=== PATIENT | female | born 1975 | race Caucasian/White ===

== ENCOUNTER → 2017-11-14 13:00 | Outpatient (RCR) | payer MEDICAID, SELFPAY ==
--- NOTE | 2012-10-16 13:09 | TODAY_ITS ---
To: PCP AND CCC Reason for today's visit: HEALTH EDUCATION Plan: 10/13/12 - PT INTERESTED IN MAKING HEALTH BEHAVIOR CHANGES. LOOKING TO LOSE WEIGHT. DISCUSSED PHYSICAL ACTIVITY - PT ENJOYS WALKING ON THE BIKE PATH. PROVIDED [facility] WELLNESS CALENDAR WITH OPPORTUNITIES. NOT INTERESTED IN GROUP ACTIVITIES AT THE MOMENT. DISCUSSED PORTION SIZE, GROCERY LISTS, PLATE SIZE, CHOOSEMYPLATE. ENCOURAGED PT TO KEEP AT FOOD LOG. BRAINSTORMED IDEAS. FOLLOW UP 10/20/12. Action Plan: WALK ON BIKE PATH, HALF OF IT, 5 DAYS. CONFIDENCE LEVELS IS 7/8. Chronic Condition: Referred to:
--- NOTE | 2012-10-23 11:30 | TODAY_ITS ---
To: PCP AND CCC Reason for today's visit: WORK ON SELF-MANAGEMENT GOALS Plan: 10/19/12 - PT REPORTED BEING SUCCESSFUL WITH ACTION PLAN AND COMPLETING MORE BY WALKING THE ENTIRE BIKE PATH 5 DAYS. PT HAS GOAL OF RUNNING AGAIN. PT VERY MOTIVATED TO MAKE AND SUSTAIN CHANGES. REPORTED DOING WELL. DRINKING WATER NOW AND SAID SHE WAS ALMOST AT HER GOAL. DECREASED TO ALMOST NONE FOR SUGAR-SWEETENED BEVERAGES. PT IS TRACKING FOOD INTAKE. PT INTERESTED IN PROTEIN - SUGGESTED LOOKING AT [employer] (WE PRINTED SOME MATERIAL). ALSO SUGGESTED MEETING WITH THE HOT SAW HELPER. FOLLOW UP 10/27/12 Action Plan: EAT TUNE FISH FOR LUNCH, FRIDAY AND FRIDAY. CONFIDENCE LEVEL IS 9/10. Chronic Condition: Referred to:
--- NOTE | 2012-10-28 13:50 | TODAY_ITS ---
To: PCP AND CCC Reason for today's visit: WORK ON SELF-MANAGEMENT GOALS Plan: 10/27/12 - PT REPORTED DOING VERY WELL WITH HER GOALS. USING A WEBSITE (LOSE IT) TO TRACK FOOD INTAKE AND PHYSICAL ACTIVITY. REPORTED 1 LB WEIGHT LOSS AND WAS VERY EXCITED. PT WAS SUCCESSFUL WITH ACTION PLAN TO EAT TUNA 2 TIMES. ALSO TRYING TO INCORPORATE EGGS AND YOGURT INTO DIET. USING A PEDOMETER. AVERAGING 12,000 TO 14,000 STEPS A DAY, WHEN SHE GOES FOR A WALK ON THE BIKE PATH. ENCOURAGED PT TO ATTEND A GROUP HEALTH EDUCATION MEETING. PT WAS INTERESTED AND WILL BE ABLE TO DO SO WHEN HER CHILDREN ARE BACK IN SCHOOL. PT WILL CALL TO SCHEDULE NEXT APPT. Action Plan: EAT FISH 2 TIMES, FRIDAY AND FRIDAY. CONFIDENCE LEVEL IS 8/9. Chronic Condition: Referred to:
== END ==
LOC: CCT 10-13 09:30
PROVIDERS: PCP Internal Medicine; Visit Provider Internal Medicine
DX: 799.89 (principal)

== ENCOUNTER 2017-12-17 15:19 | Outpatient (CLI) | payer BC, MEDICAID, SELFPAY ==
--- NOTE | 2017-12-17 14:49 | DI.RAD_ITS ---
SYMPTOMS/DIAGNOSIS: COUGH, WHEEZE, R05, R06.2 PA AND LATERAL CHEST: Comparison is 01/25/10. The heart size and pulmonary vasculature appear unchanged compared to the prior examination and within normal limits. The lungs are clear. No effusions, infiltrates or pneumothoraces are identified. Mild degenerative changes are seen in the spine. IMPRESSION: No significant change in appearance of the chest x-ray. No acute abnormality.
== END 2017-12-17 15:39 ==
PROVIDERS: PCP Nurse Practitioner; Visit Provider Nurse Practitioner
DX: R05 Cough (principal); R06.2 Wheezing
CPT/HCPCS: 71046

== ENCOUNTER 2018-01-01 16:18 | Outpatient (REF) | payer BC, MEDICAID, SELFPAY ==
--- NOTE | 2018-01-01 15:45 | PAPFT_PTH ---
PATIENT: Chiquis Winn LOC: N U#:[id number] AGE/SX: 42/F ROOM: RE01/01/[address]: JOE Olivares : 1975 BED: DIS: 01/01/2018 SPEC #: [id number] RECD: 01/01/18 18:17 STATUS: KINDRA GONZALEZ #: [id number] TRIPP: 01/01/18 15:[address]: Yuliya Martins DEPT: [facility] Cytology RECD BY: Gracie Fofana ENTERED: 01/01/18 18:17 SP TYPE: PAPFT DARRYN DR: Rosi Hitchcock APRN Tissues: 1 - CX/ENDOCX FOR PAP SMEARS Procedures: PAP THIN PREP/UVM Screening Comments: [id number]
== END 2018-01-01 16:38 ==
LOC: LBN 16:18
PROVIDERS: PCP Nurse Practitioner; Visit Provider Nurse Practitioner Family
DX: Z12.4 Encounter for screening for malignant neoplasm of cervix (principal)
CPT/HCPCS: 88142

== ENCOUNTER 2018-01-13 15:24 | Outpatient (CLI) | payer BC, MEDICAID, SELFPAY ==
[2018-01-13 16:59] LABS: TSH (W/Ref FT4) 1.66 uIU/mL (0.358-3.74)
== END 2018-01-13 15:44 ==
PROVIDERS: PCP Nurse Practitioner; Visit Provider Nurse Practitioner Family
DX: N93.9 Abnormal uterine and vaginal bleeding, unspecified (principal)
CPT/HCPCS: 36415; 84443

== ENCOUNTER 2018-01-21 16:18 | Outpatient (CLI) | payer BC, MEDICAID, SELFPAY ==
[2018-01-21 16:43] LABS: HCT 39.1 % (36.0-46.0); Mean Corp. HGB Concentration 33.2 g/dL (32.0-36.0); Mean Corpuscular Hemoglobin 30.6 pg (27.0-33.0); Mean Platelet Volume 10.7 fL (8.0-11.0); Platelet Count 264 x1000/uL (130-400); RBC 4.25 m/cumm (4.00-5.20); RBC Distribution Width 13.3 % (11.7-14.6); White Blood Cell Count 7.07 k/cumm (4.4-10.8)
== END 2018-01-21 16:38 ==
PROVIDERS: PCP Nurse Practitioner; Visit Provider Obstetrics & Gynecology
DX: N93.9 Abnormal uterine and vaginal bleeding, unspecified (principal)
CPT/HCPCS: 36415; 85027

== ENCOUNTER 2018-01-21 17:38 | Outpatient (REF) | payer BC, MEDICAID, SELFPAY ==
--- NOTE | 2018-01-21 16:10 | ENDOMET_PTH ---
PATIENT: Chiquis Winn LOC: LBN U#:[id number] AGE/SX: 42/F ROOM: RE01/21/[address]: Sweta Farmer MD : 1975 BED: DIS: 01/21/2018 SPEC #: [id number] RECD: 01/22/18 12:16 STATUS: KINDRA REObed #: [id number] TRIPP: 01/21/18 16:[address]: Sweta Farmer DEPT: Surgical Specimen RECD BY: Gracie Fofana ENTERED: 01/22/18 12:16 SP TYPE: Endomet OTHR DR: Rosi Hitchcock APRN Tissues: 1 - ENDOMETRIUM BX/BLAIR Procedures: GROSS AND MICRO LEVEL 4 Comments: [id number]
== END 2018-01-21 17:58 ==
LOC: LBN 17:38
PROVIDERS: PCP Nurse Practitioner; Visit Provider Obstetrics & Gynecology
DX: N85.00 Endometrial hyperplasia, unspecified (principal); N93.8 Other specified abnormal uterine and vaginal bleeding
CPT/HCPCS: 88305

== ENCOUNTER 2018-02-09 01:32 | Outpatient (CLI) | payer BC, MEDICAID, SELFPAY ==
--- NOTE | 2018-02-09 12:48 | DI.US_ITS ---
SYMPTOM/DIAGNOSIS: PELVIC PAIN, PERINEAL PAIN R10.2 PELVIC ULTRASOUND: Comparison is made with 16 Jul 2017. Transabdominal and transvaginal exams were performed. The bladder is well distended and is unremarkable. The uterus measures 85 x 4.3 x 5.9 cm. The endometrial stripe measures 7 mm in thickness. Follicles are seen on the left ovary. There are no suspicious cysts or suspicious masses. There is no evidence of hydronephrosis. IMPRESSION: Pelvic ultrasound is within normal limits.
== END 2018-02-09 01:52 ==
PROVIDERS: PCP Nurse Practitioner; Visit Provider Obstetrics & Gynecology
DX: R10.2 Pelvic and perineal pain (principal); N92.0 Excessive and frequent menstruation with regular cycle
CPT/HCPCS: 76830; 76856

== ENCOUNTER 2018-02-11 05:42 | Outpatient (CLI) | payer BC, MEDICAID, SELFPAY ==
--- NOTE | 2018-02-11 15:57 | DI.MAMMO_ITS ---
SYMPTOM/DIAGNOSIS: SCREENING MAMMOGRAMS: Mammograms were interpreted according to the usual protocol including computer analysis with CAD system, tomosynthesis and C view imaging. Comparison is made with exams from 2015 and 2016. The breasts are composed of scattered fibroglandular densities. There are small circumscribed nodules again noted in the left breast. No suspicious masses or suspicious calcifications are seen in either breast. IMPRESSION: Category 2B, negative mammogram with benign findings. Yearly screening mammography is recommended. SA ASSESSMENT OF FINDINGS: Negative with benign findings. Category 2. Patient will receive a letter notifying them of these results. BI-RADS category B. There are scattered areas of fibroglandular density.
== END 2018-02-11 06:02 ==
PROVIDERS: PCP Nurse Practitioner; Visit Provider Nurse Practitioner Family
DX: Z12.31 Encounter for screening mammogram for malignant neoplasm of breast (principal)
CPT/HCPCS: 77063; 77067

== ENCOUNTER 2018-05-28 19:06 | Outpatient (REF) | payer BC, MEDICAID, SELFPAY ==
[2018-05-29 13:46] LABS: Chlamydia Result Negative; GC Result Negative; Specimen Description CERVIX
== END 2018-05-28 19:26 ==
LOC: LBN 19:06
PROVIDERS: PCP Nurse Practitioner; Visit Provider Nurse Practitioner Family
DX: Z11.3 Encounter for screening for infections with a predominantly sexual mode of transmission (principal)
CPT/HCPCS: 87491; 87591

== ENCOUNTER 2018-10-08 15:57 | Outpatient (REF) | payer BC, MEDICAID, SELFPAY | END 2018-10-08 16:17 | LOC: LBN 15:57 | PROVIDERS: PCP Nurse Practitioner; Visit Provider Nurse Practitioner Women's Health | DX: R30.0 Dysuria (principal) | CPT/HCPCS: 87077; 87086; 87186 ==

== ENCOUNTER 2019-01-05 15:52 | Outpatient (REF) | payer BC, MEDICAID, SELFPAY ==
--- NOTE | 2019-01-05 15:15 | PAPFT_PTH ---
PATIENT: Chiquis Winn LOC: N U#:[id number] AGE/SX: 43/F ROOM: RE01/05/[address]: JOE Olivares : 1975 BED: DIS: 01/05/2019 SPEC #: [id number] RECD: 01/05/19 18:17 STATUS: KINDRA REObed #: [id number] TRIPP: 01/05/19 15:[address]: Yuliya Martins DEPT: [facility] Cytology RECD BY: Gracie Fofana ENTERED: 01/05/19 18:17 SP TYPE: PAPFT DARRYN DR: Rosi Hitchcock APRN Tissues: 1 - CX/ENDOCX FOR PAP SMEARS Procedures: PAP THIN PREP/UVM Screening HPV DNA PROBE Comments: [id number]
== END 2019-01-05 16:12 ==
LOC: LBN 15:52
PROVIDERS: PCP Nurse Practitioner; Visit Provider Nurse Practitioner Family
DX: Z12.4 Encounter for screening for malignant neoplasm of cervix (principal); Z11.51 Encounter for screening for human papillomavirus (HPV)
CPT/HCPCS: 88142; 87624

== ENCOUNTER 2019-01-06 17:15 | Emergency (ER) | payer BC, MEDICAID, SELFPAY ==
[2019-01-06 17:23] VITALS: BP 125/80; PULSE 80; RESP 16; TEMP 36.8; O2SAT 95
--- NOTE | 2019-01-06 18:30 | ED.GENADUL_ITS ---
Discharge Plan Disposition Patient Disposition: HOME Condition: Fair Discharge Details Chief Complaint: Dizzy/Sync Clinical Impression: Intermittent lightheadedness Primary Care Provider: Rosi Hitchcock ED Provider: Elizabeth Burdick Home Meds and New Rx's Prescriptions: Continued albuterol sulfate 90 mcg/actuation HFA aerosol inhaler 2 puff IH Q4H PRN (Reason: bronchospasm) Qty: 8.5 RF: 0 Multiple Vitamin, Womens Tablet PO RF: 0 cholecalciferol (vitamin D3) 2,000 unit capsule 2,000 unit PO DAILY RF: 0 ibuprofen 800 mg tablet 800 mg PO TID PRN (Reason: pain) Qty: 30 RF: 5 gabapentin 100 mg capsule 200 mg PO HS PRN (Reason: sleep) Qty: 180 RF: 3 aripiprazole [Abilify] 5 mg tablet 5 mg PO DAILY Qty: 90 RF: 3 sertraline [Zoloft] 25 mg tablet 25 mg PO DAILY Qty: 90 RF: 3 meloxicam 7.5 mg Tablet,Disintegrating 7.5 mg PO HS RF: 0 Discharge Instructions Instructions: Lightheadedness (ED) Additional Instructions: Encourage hydration. Please follow-up with primary care this week for reevaluation. Please discuss your thyroid as well as your current medications to discuss if this may be contributing to your symptoms. If you develop new or worsening symptoms please seek care urgently once again. Labs are reassuring here today. Referrals: Rosi Hitchcock, [facility] [Primary Care Provider] - Discharge Data Discharge Date/Time-TO BE ENTERED AT DEPARTURE: 01/06/19 21:45 Medical Decision Making Patient presents today with chief complaint of dizziness. She reports that this began approximately or days ago and is waxing with time. She reports she was seen yesterday by [facility] and has been much more symptomatic since that time is been greatly concerned about her vital signs nursing staff told her that she was hypotensive and bradycardic. She is concerned that this may be driving her symptoms. She denies any headaches. States that she is intermittently been seeing double but that this is only when she initially fixates on something and then quickly subsides in a few seconds. States she does eat a regular 2- hour intervals. Feels that she has been hydrating but is unclear she may be dehydrated she has been currently thirsty. Denies any chest pain, shortness of breath. No abdominal pain. No change with bladder or bowel habits. No recent fevers or chills. No recent head trauma. No recent travel. Patient status post tubal ligation. On exam, patient appears quite anxious. Exam is otherwise benign. No evidence of trauma. No nystagmus. Is in her ears. She appears slightly dry. Normal cardiac and respiratory exam. Neurologic exam is intact and normal. Vital signs within normal limits. I did review the notes from yesterday which is. Patient blood pressure at that time is 98/60. Is not unusual for the patient. Her systolic is often around 100 and has been as low as 94 historically. Heart rate and yesterday's exam was 72 which again is baseline for the patient. This did greatly reassure her. However, she remains concerned for more serious etiology. She is not actively hyperventilating. However, she is also not actively symptomatic. In questioning if this may be any anxiety component. I did consider pulmonary embolism with findings very unlikely and patient is PERC negative. I do not feel a further assessment for this is necessary. ECG was reviewed by Dr. Shaffer. Patient is in normal sinus rhythm with a rate of 79. No acute ischemic changes noted. Labs reviewed. Patient does not walk. No electrolyte abnormalities. Her TSH 5.25 free T4 is 9 5. Troponin is less than 0.05. Discussed these findings with the patient. Advised that they were reassuring for no emergent etiology ongoing at this point. She is not having any neurologic deficit, has no headache or visual change at this time, and the feel that imaging is warranted. I did discuss with her that if the symptoms were to persist she may need an MRI as an outpatient per primary care. I also advised that she should discuss this further with her primary care. In particular, patient seems particularly concerned about her thyroid. I also advised that this may be assisted with side effects of medications that she has been on this for multiple years, I will refer her back to primary care to discuss this further. Again, advancing any emergent etiology for the patient is safe for discharge at this time. She does feel reassured and feels safe to go home. She was given return precautions. All her questions and concerns were addressed and she is in agreement this plan. She will call tomorrow to schedule appoint with her primary care. HPI General Mode of arrival: ambulatory . Date/Time Provider Initiated Documentation: 01/06/19 17:25 . Limitations to Documentation: no limitations . Information obtained by: patient and RN notes reviewed . HPI Narrative: Patient is a 43-year-old female presents today with chief complaint of lightheadedness. She reports this began a few days ago but has been more constant since yesterday. She reports that symptoms are worse when laying in a supine position and are improved with being upright. Tends notices more when sitting still and with movement. No recent change in medications. No recent travel. No fevers or chills. No headache. Reports that last night she was seeing double when she initially tried to fixate on a item but states that this would rapidly improve. Patient denies any change in her appetite or dietary habits. States she has been gaining weight and is concerned about thyroid dysfunction. She reports this is followed closely by her primary care but has no known diagnosis of thyroid dysfunction. Patient does report that she has a history of anxiety but this is not typically her anxiety manifests and does not feel particularly stressed at this time. She is quite worried that she was noted to be hypotensive and bradycardic yesterday at her women's wellness evaluation. Related Data Home Medications Medication Instructions Recorded Confirmed albuterol sulfate 90 mcg/actuation 2 puff IH Q4H PRN #8.5 gm 12/23/17 01/06/19 aerosol inhaler sertraline 25 mg tablet 25 mg PO DAILY #90 tab-cap 09/03/18 01/06/19 aripiprazole 5 mg tablet 5 mg PO DAILY #90 tab 09/08/18 01/06/19 gabapentin 100 mg capsule 200 mg PO HS PRN #180 cap 09/08/18 01/06/19 cholecalciferol (vitamin D3) 2,000 2,000 unit PO DAILY 01/05/19 01/06/19 unit capsule ibuprofen 800 mg tablet 800 mg PO TID PRN #30 tab 01/05/19 01/05/19 kntbajhvgqvc-Rq-kcwa-minerals tab PO 01/05/19 meloxicam 7.5 mg PO HS 01/06/19 01/06/19 Previous Rx's Medication Instructions Recorded albuterol sulfate 90 mcg/actuation 2 puff IH Q4H PRN #8.5 gm 12/23/17 aerosol inhaler sertraline 25 mg tablet 25 mg PO DAILY #90 tab-cap 09/03/18 aripiprazole 5 mg tablet 5 mg PO DAILY #90 tab 09/08/18 gabapentin 100 mg capsule 200 mg PO HS PRN #180 cap 09/08/18 ibuprofen 800 mg tablet 800 mg PO TID PRN #30 tab 01/05/19 Allergies Allergy/AdvReac Type Severity Reaction Status Date / Time promethazine AdvReac Intermediate made her Verified 01/06/19 17:26 loopy, outof it Sulfa (Sulfonamide AdvReac Intermediate vomiting Verified 01/06/19 17:26 Antibiotics) General Stated Complaint: Dizzy/Sync ELMA: 3 Review of Systems Constitutional Constitutional: Reports as per HPI, Denies chills, Reports fatigue, Denies fever(s), Denies frequent falls, Denies headache(s), Denies snoring and Denies weakness Eyes Eyes: Reports as per HPI, Denies blurry vision, Denies change in vision, Reports diplopia (Has not experienced this since yesterday) and Reports photophobia ENT Ears, Nose, Mouth, and Throat: Denies vertigo, Reports dizziness (Described as lightheadedness), Denies headache(s) and Denies neck pain Cardiovascular Cardiovascular: Reports as per HPI, Denies chest pain, Denies leg edema, Reports lightheadedness, Denies radiating jaw, neck or arm pain, Denies dyspnea and Denies dyspnea on exertion Respiratory Respiratory: Reports as per HPI, Denies chest congestion, Denies cough, Denies hemoptysis, Denies pain on inspiration, Denies pain with cough, Denies dyspnea, Denies dyspnea on exertion, Denies snoring, Denies stridor and Denies wheezing Gastrointestinal Gastrointestinal: Reports as per HPI, Denies abdominal pain, Denies change in bowel habits, Denies nausea and Denies vomiting Musculoskeletal Musculoskeletal: Reports as per HPI, Denies back pain, Denies myalgias, Denies muscle cramps, Denies neck pain and Denies numbness Integumentary/Breasts Skin/Breast: Reports as per HPI and Denies rash Neurologic Neurologic: Reports as per HPI, Denies abnormal movements, Denies abnormal speech, Denies behavioral changes, Denies confusion, Denies vertigo, Reports dizziness (Described as lightheadedness), Denies frequent falls, Denies headache(s), Denies focal weakness, Denies numbness, Denies sensory deficit and Denies weakness Psychiatric Psychiatric: Denies behavioral changes and Denies confusion Endocrine Endocrine: Reports fatigue Allergic/Immunologic Allergic/Immunologic: Denies wheezing FOR[facility]LY [facility], [facility] Medical History Abnormal uterine bleeding (Resolved) EMBx with disordered proliferative endometrium. 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 Pets and animals: Yes Pets and animals: dog(s) Current gender identity: female What type of physical activity do you participate in: none Seatbelt use: always Do you feel safe at home: Yes Do you feel safe in your relationship?: Yes Female Reproductive History Menstrual control method: permanent sterilization History History 3 Para 2 Hx # Term Pregnancies Multiple births Hx # Pregnancies Ectopic pregnancies AB induced Hx Number of Living Children AB spontaneous Exam Const General: cooperative, healthy appearing, uncomfortable, no acute distress, well developed and well groomed Nutritional Appearance: average body habitus and well nourished Orientation: alert, awake and oriented x3 HENMT Head: normal to inspection, no palpable skull fracture, normocephalic and atraumatic Ears: hearing grossly normal bilaterally, external ears normal and TM's normal bilaterally General nose exam: external nose normal Mouth: oral mucosae normal and moist mucous membranes Throat: posterior oropharynx normal Eyes General: appearance normal, both eyes and all related structures Visual Yan: normal visual yan by confrontation Alignment and Position: alignment normal and position normal Periorbital: periorbital findings normal Eyelids: eyelids normal Sclera: sclerae normal Cornea: corneas normal Pupils: PERRL EOM: EOM intact bilaterally Neck Neck: normal visual inspection, full ROM, no lymphadenopathy and no meningeal signs Resp Effort & Inspection: normal respiratory effort, able to speak in complete sentences and no respiratory distress Auscultation: clear to auscultation bilaterally, no rales, no rhonchi and no wheezes Cardio Rate: regular rate Rhythm: regular rhythm Heart Sounds: S1 normal and S2 normal GI Inspection: normal to inspection and non-distended Palpation: soft, no hepatosplenomegaly, not firm, no guarding, not rigid and nontender Percussion: normal to percussion Auscultation: normal bowel sounds Back/Spine/Pelvis Cervical Spine: normal cervical lordosis and cervical ROM normal Skin General skin exam: no rashes or lesions noted Neuro General: alert, awake and oriented x3 Cranial Nerves: CN's II-XI intact bilaterally Cognition: normal cognition Speech: speech normal Gait: normal gait Motor: muscle tone normal throughout, strength 5/5 throughout, no pronator drift, no movement abnormalities noted and no fasciculations Sensory Exam: no sensory deficits noted Coordination: [id number]-[id number] test normal and hwvy-ng-ibxl test normal Extrem General: normal to inspection, normal capillary refill, no pedal edema and no calf tenderness Psych Appearance: grossly normal and well kempt Mental Status: mental status grossly normal Speech and Movement: speech and movement normal Course Vital Signs Vital signs: Vital Signs Temperature 36.8 C 01/06/19 17:23 Pulse 80 01/06/19 17:23 Respiratory Rate 16 01/06/19 17:23 Blood Pressure 125/80 01/06/19 17:23 Pulse Oximetry 95 01/06/19 17:23 Temperature 36.8 C 01/06/19 17:23 Temperature Source Temporal Artery Scan 01/06/19 17:23 Pulse 80 01/06/19 17:23 Respiratory Rate 16 01/06/19 17:23 Respiratory Effort Non-Labored 01/06/19 17:48 Respiratory Depth Normal 01/06/19 17:48 Respiratory Pattern Normal 01/06/19 17:48 Blood Pressure 125/80 01/06/19 17:23 Pulse Oximetry 95 01/06/19 17:23 Oxygen Delivery Method Room Air 01/06/19 17:23 Oxygen Flow Rate 0 01/06/19 17:23
[2019-01-06] MEDS: Normal Saline 1,000 ML 1000 ML IV (19:00)
[2019-01-06 19:50] LABS: Abs Immature Grans 0.01 k/cumm (0.0-0.09); Absolute Basophil Count 0.02 k/cumm (0.0-0.2); Absolute Eosinophil Count 0.12 k/cumm (0.0-0.7); Absolute Lymphocyte Count 1.76 k/cumm (1.2-3.4); Absolute Monocyte Count 0.45 k/cumm (0.11-0.7); Absolute Neutrophil Count 5.73 k/cumm (1.2-6.7); Basophils % 0.2; Eosinophils % 1.5; HCT 40.9 % (36.0-46.0); HGB 13.8 g/dL (12.0-15.5); Immature Grans % 0.1; Lymphocytes % 21.8; Mean Corp. HGB Concentration 33.7 g/dL (32.0-36.0); Mean Corpuscular Hemoglobin 30.5 pg (27.0-33.0); Mean Corpuscular Volume 90.5 fL (80-95); Mean Platelet Volume 10.7 fL (8.0-11.0); Monocytes % 5.6; Neutrophils % 70.8; Platelet Count 317 x1000/uL (130-400); RBC 4.52 m/cumm (4.00-5.20); RBC Distribution Width 12.2 % (11.7-14.6); White Blood Cell Count 8.09 k/cumm (4.4-10.8)
[2019-01-06 20:10] LABS: ALT 33 U/L (14-59); AST 18 U/L (15-37); Albumin 4.1 g/dL (3.4-5.0); Alkaline Phosphatase 97 U/L (46-116); Anion Gap 10.8 mmol/L (3-11); BUN 24 mg/dL (7-18); Bilirubin, Total 0.7 mg/dL (0.2-1.0); CO2 26.2 mmol/L (21.0-32.0); CREATININE 0.95 mg/dL (0.55-1.02); Calcium 9.4 mg/dL (8.5-10.1); Chloride 104 mmol/L (98-107); Glucose 92 mg/dL (70-100); Potassium 3.7 mmol/L (3.5-5.1); Sodium 141 mmol/L (136-145); Total Protein 7.9 g/dL (6.4-8.2)
[2019-01-06 20:18] LABS: TSH 5.25 uIU/mL (0.36-3.74)
[2019-01-06 20:21] LABS: Troponin I < 0.05 ng/mL (0.00-0.06)
[2019-01-06 20:45] VITALS: BP 105/75; PULSE 67; RESP 14; O2SAT 100
[2019-01-06 21:09] LABS: FREE T4 0.95 ng/dL (0.76-1.46)
== END 2019-01-06 21:45 | disposition home or self-care (01) ==
PROVIDERS: Emergency Provider Physician Assistant; PCP Nurse Practitioner
DX: R42 Dizziness and giddiness (principal)
CPT/HCPCS: 36416; 80053; 82962; 93005; 96360; 99284; 83735; 84439; 84443; 84484; 85025; 93010

== ENCOUNTER 2019-02-12 01:44 | Outpatient (CLI) | payer BC, MEDICAID, SELFPAY ==
--- NOTE | 2019-02-12 15:15 | DI.MAMMO_ITS ---
EXAM: MAMMO SCREENING CLINICAL HISTORY: Screening, Z12.39 TECHNIQUE: Mammograms were interpreted according to the usual protocol including computer analysis w [place] acquired by [employer] CAD system, tomosynthesis and C-view imaging. COMPARISON: PRIOR EXAMINATION OF JANUARY 2018 FINDINGS: The breasts are of moderate density. There is somewhat asymmetric distribution of fibroglandular tis sarkis. No dominant mass is seen. Multiple small areas of nodularity are seen bilaterally, [facility] also showed multiple small areas of nodularity. There has been interval incr ease in size of a nodule of the lateral aspect of the left breast in comparison with the previous exa mination, this now measures up to about 7 millimeters in diameter. Additionally, an area of nodulari ty is seen projected in the central portion of the breast measuring about 8 millimeters in diameter, most clearly seen on the tomosynthesis views in the left MLO projection. On the right side, there is new area of nodularity, which is projected in the medial central portion of the breast. Compression views of these areas are requested along with bilateral breast ultrasound. IMPRESSION: Interval change in size of bilateral well-circumscribed breast masses. Spot compression views of both breasts and bilateral breast ultrasound are recommended for further evaluation to exclude an enlargi ng solid mass. Category 0, breast density category B.
== END 2019-02-12 02:04 ==
PROVIDERS: PCP Nurse Practitioner; Visit Provider Nurse Practitioner Family
DX: Z12.31 Encounter for screening mammogram for malignant neoplasm of breast (principal); R92.8 Other abnormal and inconclusive findings on diagnostic imaging of breast
CPT/HCPCS: 77063; 77067

== ENCOUNTER 2019-02-16 00:57 | Outpatient (CLI) | payer BC, MEDICAID, SELFPAY ==
--- NOTE | 2019-02-16 09:27 | DI.US_ITS ---
EXAM: MG MAMMO SCREEN CALL BACK BI AND BILAT BREAST ULTRASOUND CLINICAL HISTORY: F/U MAMMO, SMALL AREAS OF NODULARITY EMERITA, INC IN SIZE OF NODULE LT, NEW RTNODULARITY TECHNIQUE: Craniocaudal and mediolateral oblique Full Field Digital Mammography views with Computer Aided Diagnosis followed by Breast Tomosynthesis and bilateral breast ultrasound. COMPARISON: MG MAMMO SCREEN CALL BACK BI from 02/16/2019 US BREAST LT LIMITED from 02/16/2019 US BREAST RT LIMITED from 02/16/2019 FINDINGS: Mammography/Tomosynthesis: Breast Density: Breast Density - Category B - Scattered areas of fibroglandular density Masses/Architectural Distortion: The previously identified nodules in both breasts appear stable. Microcalcifications: No suspicious pleomorphic-type are seen. Skin Thickening/Nipple Retraction: None. Breast Ultrasound: Right breast ultrasound: Echotexture: Normal appearance of the glandular tissue. Shadowing: No suspicious foci. Cyst: There 2 cysts adjacent to each other at the 2 o'clock position of the right breast 3 centimeter s from the nipple. This appears to correspond to the mammographic abnormality. Solid lesions: None seen. Ductal dilation: None. Left breast ultrasound: Echotexture: Normal appearance of the glandular tissue. Shadowing: No suspicious foci. Cyst: There are small simple cysts seen in the left breast. Solid lesions: None seen. Ductal dilation: None. IMPRESSION: 1. No evidence for malignancy at this time. 2. Six-month follow-up right mammogram is requested for re-evaluation. BI-RADS Cat 3 - 6 month - Probably Benign Finding: Recommend follow-up mammography in 6 months Breast Density - Category B - Scattered areas of fibroglandular density The findings were discussed with the patient on the date of the examination. A negative radiographic report should not delay biopsy if a dominant or clinically suspicious mass is present. Up to ten percent of cancers are not identified on mammography. A negative report may reinforce clinical impression. Adenosis and dense breasts may obscure an underlying neoplasm. False positive reports average 6 to 10%. Patient will receive a letter notifying them of these results.
== END 2019-02-16 01:17 ==
PROVIDERS: PCP Nurse Practitioner; Visit Provider Nurse Practitioner Family
DX: Z12.31 Encounter for screening mammogram for malignant neoplasm of breast (principal); R92.8 Other abnormal and inconclusive findings on diagnostic imaging of breast; N60.11 Diffuse cystic mastopathy of right breast; N60.12 Diffuse cystic mastopathy of left breast
CPT/HCPCS: 76642; 77063; 77067

== ENCOUNTER 2019-02-23 09:51 | Outpatient (CLI) | payer BC, MEDICAID, SELFPAY ==
[2019-02-23 11:14] LABS: Abs Immature Grans 0.01 k/cumm (0.0-0.09); Absolute Basophil Count 0.02 k/cumm (0.0-0.2); Absolute Eosinophil Count 0.15 k/cumm (0.0-0.7); Absolute Lymphocyte Count 1.23 k/cumm (1.2-3.4); Absolute Monocyte Count 0.32 k/cumm (0.11-0.7); Absolute Neutrophil Count 4.02 k/cumm (1.2-6.7); Basophils % 0.3; Eosinophils % 2.6; HCT 41.2 % (36.0-46.0); HGB 13.5 g/dL (12.0-15.5); Immature Grans % 0.2; Lymphocytes % 21.4; Mean Corp. HGB Concentration 32.8 g/dL (32.0-36.0); Mean Corpuscular Hemoglobin 29.9 pg (27.0-33.0); Mean Corpuscular Volume 91.2 fL (80-95); Mean Platelet Volume 10.5 fL (8.0-11.0); Monocytes % 5.6; Neutrophils % 69.9; Platelet Count 296 x1000/uL (130-400); RBC 4.52 m/cumm (4.00-5.20); White Blood Cell Count 5.75 k/cumm (4.4-10.8)
[2019-02-23 12:39] LABS: TSH (W/Ref FT4) 1.75 uIU/mL (0.36-3.74)
== END 2019-02-23 10:11 ==
PROVIDERS: PCP Nurse Practitioner; Visit Provider Obstetrics & Gynecology
DX: N94.6 Dysmenorrhea, unspecified (principal); N93.9 Abnormal uterine and vaginal bleeding, unspecified; Z01.818 Encounter for other preprocedural examination; Z01.812 Encounter for preprocedural laboratory examination
CPT/HCPCS: 36415; 86850; 86900; 86901; 84443; 85025

== ENCOUNTER 2019-02-24 07:23 | Observation (INO) | payer BC, MEDICAID, SELFPAY ==
[2019-02-24] VITALS (13 sets, daily range): BP systolic 91–122; BP diastolic 52–80; PULSE 57–91; RESP 12–18; TEMP 36.3–36.7; O2SAT 95–98
[2019-02-24] MEDS: Lactated Ringers 1,000 ML 125 ML IV ×3 (08:07→21:06)
[2019-02-24] MEDS: ceFAZolin 2 GM/50 ML BAG IVPB (09:58)
[2019-02-24] MEDS: Bupivacaine 0.25% Pres-Free 30 ML VIAL (11:00)
--- NOTE | 2019-02-24 11:45 | UTER_PTH ---
PATIENT: Chiquis Winn LOC: OBS U#:[id number] AGE/SX: 43/F ROOM: OBS.306 RE02/24/[address]: Jose Stone MD : 1975 BED: A DIS: 02/25/2019 SPEC #: [id number] RECD: 02/24/19 18:05 STATUS: KINDRA REQ #: [id number] TRIPP: 02/24/19 11:[address]: Jose Stone DEPT: Surgical Specimen RECD BY: Gracie Fofana ENTERED: 02/24/19 18:06 SP TYPE: UTER OTHR DR: Rosi Hitchcock APRN Tissues: 1 - UTERUS W OR W/O OVARIES(NOT TUMOR/PROLAPSE) Procedures: GROSS AND MICRO LEVEL 4 Comments: [id number]
[2019-02-24] MEDS: Normal Saline 20 ML VIAL (12:00)
[2019-02-24] MEDS: Vasopressin 20 UNITS/ML VIAL (12:00)
--- NOTE | 2019-02-24 14:01 | ROE_ITS ---
Date of service: 02/24/19 Time of Service: 14:01 Operative Note Operative Note DATE OF PROCEDURE: 02/24/19 PRE-OP DIAGNOSIS: 1. Dysmenorrhea 2. Abnormal uterine bleeding POST-OP DIAGNOSIS: same PROCEDURE: LAVH, cystoscopy SURGEON: Jose Stone ASSISTING SURGEON: Emelia Beach MOTION PICTURE SCENE BUILDER: Pauly Flood ANESTHESIA: GETA and spinal ESTIMATED BLOOD LOSS: 75 PATHOLOGY: other (Uterus with fallopian tubes) COMPLICATIONS: None Patient was transported to: PACU Patient's condition: stable Findings: 1. Normal-appearing uterus. 2. Ovaries were both normal in appearance. Procedure Description: The patient was taken to the operating room and after adequate general anesthesia was obtained the patient was placed in lithotomy position. The patient was prepped and draped in the usual sterile manner. A weighted speculum was placed the vagina with good visualization of the cervix. A [employer] uterine manipulator was placed. A Kate catheter was placed in the bladder draining clear urine. The patient was repositioned. The surgeon was regloved. Attention was then turned to patient's abdomen. The skin and subtenons tissues at the umbilicus were infiltrated with 0.25% Marcaine solution. A small infraumbilical skin incision was then made with a #15 blade scalpel. Sharp dissection was carried out the underlying layer fascia. The fascia was grasped and elevated with 2 Abel clamps and incised sharply with a scalpel. The peritoneum was entered with hemostats and S re tractors were placed. 2 sutures of 0 Vicryl were placed on either side of the fascial incision. The 10 mm balloon trocar was advanced without difficulty. A pneumoperitoneum to approximately 14 mmHg was established with carbon dioxide. Two 5 mm ports were placed in the right and left lower quadrants both under direct visualization. The patient did have a tubal ligation in the past. The right and left distal fallopian tube segments were excised with the LigaSure device and removed from the abdomen. Dissection was carried first across the right round ligament with the LigaSure device. Dissection was carried across the the utero-ovarian ligament as well. Dissection was carried down to the level of the uterine vessels. The bladder reflection was divided to the midline with LigaSure device. The ascending branches of the uterine vessels were coagulated and transected with the LigaSure. Attention was then turned to the opposite side where a similar procedure was carried out. The bladder reflection was dissected again to the midline and reflected inferiorly. The anterior cul-de-sac was developed with endoscopic Kitners. Attention was then turned to the vaginal portion of this procedure The patient was repositioned a weighted speculum was placed in the vagina with good visualization of the cervix. The cervix was grasped with a single-tooth tenaculum. The paracervical tissues were infiltrated with vasopressin solution. A circumferential incision was made with a #10 scalpel at the cervicovaginal junction. The anterior and posterior planes were developed with both blunt and sharp dissection. The cul-de-sac was entered sharply with Khanna scissors. The posterior peritoneum was tagged to the vaginal mucosa with a suture of 0 Vicryl. A long-billed weighted speculum was placed. Dissection was carried anteriorly to the anterior cul-de-sac and the bladder was reflected anteriorly with a right angle retractor. The uterosacral ligaments were crossclamped bilaterally with Zeppelin clamps. These were transected with Khanna scissors and suture ligated with a Jmeima stitch of 0 Vicryl. Suture tags were held. The uterine vessels were then crossclamped bilaterally with Zeppelin clamps, transected with Khanna scissors and suture ligated also with a Hamida stitch of 0 Vicryl. Two additional pedicles on either side completed the dissection and the uterus was removed from the abdomen. The suture tags holding the uterosacral ligaments were incorporated into the vaginal angles with use of a free needle. The median defect in the vaginal cuff was reapproximated with interrupted vertical mattress sutures of 0 Vicryl. 5 mL's of indigocarmine had been given to the patient intravenously. A 5 mm 30 degree cystoscope with normal saline distention media was advanced through the urethra with good visualization of the bladder. The bladder wall was noted to be intact. There was strong reflux of indigocarmine from both UOs. Postoperative cystoscopy was normal. The cystoscope was removed and Kate catheter were placed. The patient was repositioned. The surgeon was regloved. Attention was then turned to the patient's abdomen. The pneumoperitoneum was reestablished. Laparoscope was reinserted. The vaginal cuff was thoroughly inspected and there was a small bleeding vessel on the left side of the vaginal cuff. This is coagulated with LigaSure device. The vaginal cuff was thoroughly irrigated and was noted to be hemostatic. Surgi-David was applied to the area and again hemostasis was noted. The two 5 mm ports were removed under direct visualizatio n. The abdomen was desufflated and the 10 mm umbilical trocar was removed. The fascia at the umbilicus was closed with 2 previously placed sutures of 0 Vicryl. The skin at each incision was closed with interrupted sutures of 4 Monocryl. Dermabond was applied. The procedure was concluded at this point. Sponge, lap and needle counts were correct occlusion of the procedure. The patient was tra nsferred to PACU stable condition.
[2019-02-24] MEDS: Ketorolac 30 MG/ML VIAL IVP (18:19)
[2019-02-24] MEDS: Normal Saline Flush 10 ML SYR IV ×2 (18:20→21:06)
[2019-02-24] MEDS: Gabapentin 100 MG CAP 200 MG PO (21:04)
[2019-02-24] MEDS: Sertraline 25 MG TAB PO (21:04)
[2019-02-24] MEDS: ARIPiprazole 5 MG TAB PO (21:05)
[2019-02-24] MEDS: Esomeprazole 20 MG CAPCR PO (21:05)
[2019-02-25 00:30] VITALS: BP 95/49; PULSE 57; RESP 18; TEMP 36.9
[2019-02-25] MEDS: Ketorolac 30 MG/ML VIAL IVP ×2 (00:31→06:45)
[2019-02-25] MEDS: Normal Saline Flush 10 ML SYR IV (00:31)
[2019-02-25 04:02] VITALS: BP 89/43; PULSE 80; RESP 18; TEMP 36.8; O2SAT 95
[2019-02-25] MEDS: Levothyroxine 25 MCG TAB PO (05:53)
[2019-02-25 07:17] VITALS: BP 102/67; PULSE 66; RESP 18; TEMP 36.7
[2019-02-25 08:02] LABS: HCT 36.2 % (36.0-46.0); HGB 12.2 g/dL (12.0-15.5); Mean Corp. HGB Concentration 33.7 g/dL (32.0-36.0); Mean Corpuscular Hemoglobin 30.7 pg (27.0-33.0); Mean Corpuscular Volume 91.2 fL (80-95); Mean Platelet Volume 10.3 fL (8.0-11.0); Platelet Count 268 x1000/uL (130-400); RBC 3.97 m/cumm (4.00-5.20); RBC Distribution Width 12.1 % (11.7-14.6); White Blood Cell Count 8.47 k/cumm (4.4-10.8)
--- NOTE | 2019-02-25 11:18 | W.PM.PROGNOT ---
Date of Service Date of service: 02/25/19 Time of Service: 11:18 Assessment and Plan Assessment and plan (1) Abnormal uterine bleeding: Status: Acute (2) Status post laparoscopic hysterectomy: Status: Acute Assessment and plan: Doing well. Making satisfactory postoperative progress. Plan for discharge home if able to void this morning without difficulty. Subjective Subjective Interval history since last seen: Doing well. Pain well controlled. Ambulatory. Tolerating regular diet. No nausea or vomiting. Objective Objective Clinical Data: Abnormal lab results 02/25/19 Range/Units 07:50 RBC 3.97 L (4.00-5.20) m/cumm Vital Signs Temperature 98.1 F 02/25/19 07:17 Temperature Source Oral 02/25/19 07:17 Pulse 66 02/25/19 07:17 Pulse Rhythm Regular 02/25/19 07:18 Respiratory Rate 18 02/25/19 07:17 Respiratory Effort 02/25/19 07:18 Respiratory Depth Normal 02/25/19 07:18 Respiratory Pattern Normal 02/25/19 07:18 Blood Pressure 102/67 02/25/19 07:17 Pulse Oximetry 95 02/25/19 04:02 Respiratory End-tidal CO2 36 02/24/19 13:41 Oxygen Delivery Method Room Air 02/25/19 04:02 Oxygen Flow Rate 0 02/25/19 04:02 Pain Level 2 02/25/19 07:17 Comment 02/25/19 04:02 Intake & Output 02/24/19 02/24/19 02/25/19 11:59 23:59 11:59 Intake Total 50 / 1150 1100 / 1150 3656 / 3656 Output Total 1125 / 1125 1150 / 1150 Balance 50 / 25 -25 / 25 2506 / 2506 Weight 238 lb 8.642 oz 238 lb 8.642 oz Intake: IV 50 / 1150 1100 / 1150 3656 / 3656 Output: Urine 1050 / 1050 1150 / 1150 Estimated Blood Loss 75 / 75 Other: Urine Color Yellow Indigo Yellow Urine Appearance Clear Clear Clear Comment encoursged to drink more fluids Emesis Description None Laboratory Results WBC 8.47 k/cumm (4.4-10.8) 02/25/19 07:50 RBC 3.97 m/cumm (4.00-5.20) L 02/25/19 07:50 Hgb 12.2 g/dL (12.0-15.5) 02/25/19 07:50 Hct 36.2 % (36.0-46.0) 02/25/19 07:50 MCV 91.2 fL (80-95) 02/25/19 07:50 MCH 30.7 pg (27.0-33.0) 02/25/19 07:50 MCHC 33.7 g/dL (32.0-36.0) 02/25/19 07:50 RDW 12.1 % (11.7-14.6) 02/25/19 07:50 Plt Count 268 x1000/uL (130-400) 02/25/19 07:50 MPV 10.3 fL (8.0-11.0) 02/25/19 07:50
[2019-02-25 12:23] VITALS: BP 114/78; PULSE 63; RESP 20; TEMP 36.7; O2SAT 98
[2019-02-25] MEDS: Ibuprofen 600 MG TAB PO (13:05)
[2019-02-25] MEDS: Acetaminophen 500 MG TAB 1000 MG PO (13:16)
== END 2019-02-25 15:00 | disposition home or self-care (01) ==
LOC: OBS 14:05 → PDS 14:08
PROVIDERS: Admitting Provider Obstetrics & Gynecology; PCP Nurse Practitioner; Visit Provider Obstetrics & Gynecology
PROC: 0UT9FZZ Resection of Uterus, Via Natural or Artificial Opening With Percutaneous Endoscopic Assistance (ICD-10-PCS; CPT 58552; principal; 2019-02-24 09:00)
DX: N93.8 Other specified abnormal uterine and vaginal bleeding (principal); N94.6 Dysmenorrhea, unspecified; E03.9 Hypothyroidism, unspecified; F41.8 Other specified anxiety disorders
CPT/HCPCS: 58552; 36415; 85027; 88305; 96360; 96361; 99233; 88307; G0378; J0131; J0690; J1100; J1200; J1885; J2001; J2250; J2405; J3010

== ENCOUNTER 2019-03-22 13:53 | Outpatient (CLI) | payer BC, MEDICAID, SELFPAY ==
[2019-03-22 14:50] LABS: Abs Immature Grans 0.01 k/cumm (0.0-0.09); Absolute Basophil Count 0.03 k/cumm (0.0-0.2); Absolute Eosinophil Count 0.28 k/cumm (0.0-0.7); Absolute Lymphocyte Count 1.32 k/cumm (1.2-3.4); Absolute Monocyte Count 0.36 k/cumm (0.11-0.7); Absolute Neutrophil Count 5.78 k/cumm (1.2-6.7); Basophils % 0.4; Eosinophils % 3.6; HCT 36.9 % (36.0-46.0); HGB 12.4 g/dL (12.0-15.5); Immature Grans % 0.1 %; Mean Corp. HGB Concentration 33.6 g/dL (32.0-36.0); Mean Corpuscular Hemoglobin 30.1 pg (27.0-33.0); Mean Corpuscular Volume 89.6 fL (80-95); Mean Platelet Volume 10.6 fL (8.0-11.0); Monocytes % 4.6; Neutrophils % 74.3; Platelet Count 338 x1000/uL (130-400); RBC 4.12 m/cumm (4.00-5.20); RBC Distribution Width 12.1 % (11.7-14.6); White Blood Cell Count 7.78 k/cumm (4.4-10.8)
== END 2019-03-22 14:13 ==
PROVIDERS: PCP Nurse Practitioner; Visit Provider Obstetrics & Gynecology
DX: G89.18 Other acute postprocedural pain (principal)
CPT/HCPCS: 36415; 85025

== ENCOUNTER 2019-08-23 02:05 | Outpatient (CLI) | payer BC, MEDICAID, SELFPAY ==
--- NOTE | 2019-08-23 14:15 | DI.MAMMO_ITS ---
EXAM: MG MAMMO DIAGNOSTIC UNI CLINICAL HISTORY: 6 mo f/u R breast mammo, f/u to abnl exam, R92.8. TECHNIQUE: Craniocaudal and mediolateral oblique Full Field Digital Mammography views of the right b reast with Computer Aided Diagnosis followed by Tomosynthesis. COMPARISON: Priors available for comparison FINDINGS: Mammography/Tomosynthesis: Masses/Architectural Distortion: Stable area of nodularity in the medial aspect of the right breast. It is unchanged in size. No new or suspicious masses are present. Microcalcifictions: No suspicious pleomorphic-type are seen. Skin Thickening/Nipple Retraction: None. IMPRESSION: 1. No evidence of malignancy is noted. 2. A six-month follow-up right mammogram is requested for continued evaluation. 3. The findings were discussed with the patient on the date of the examination. BI-RADS Category 3 - 6 month - Probably Benign Finding: Recommend follow-up mammography in 6 months Breast Density - Category B - Scattered areas of fibroglandular density A negative radiographic report should not delay biopsy if a dominant or clinically suspicious mass is present. Up to ten percent of cancers are not identified on mammography. A negative report may reinforce clinical impression. Adenosis and dense breasts may obscure an underlying neoplasm. False positive reports average 6 to 10%. Patient will receive a letter notifying them of these results.
== END 2019-08-23 02:25 ==
PROVIDERS: PCP Nurse Practitioner; Visit Provider Nurse Practitioner Family
DX: Z12.31 Encounter for screening mammogram for malignant neoplasm of breast (principal); R92.8 Other abnormal and inconclusive findings on diagnostic imaging of breast; N60.81 Other benign mammary dysplasias of right breast
CPT/HCPCS: 77061; 77065; G0279

== ENCOUNTER 2019-09-15 14:20 | Outpatient (REF) | payer BC, MEDICAID, SELFPAY ==
[2019-09-15 19:22] LABS: HCT 41.3 % (36.0-46.0); HGB 13.9 g/dL (12.0-15.5); Mean Corp. HGB Concentration 33.7 g/dL (32.0-36.0); Mean Corpuscular Hemoglobin 30.4 pg (27.0-33.0); Mean Corpuscular Volume 90.4 fL (80-95); Mean Platelet Volume 11.9 fL (8.0-11.0); Platelet Count 310 x1000/uL (130-400); RBC 4.57 m/cumm (4.00-5.20); RBC Distribution Width 12.2 % (11.7-14.6); White Blood Cell Count 8.35 k/cumm (4.4-10.8)
[2019-09-15 20:25] LABS: ALT 27 U/L (14-59); AST 17 U/L (15-37); Albumin 4.2 g/dL (3.4-5.0); Alkaline Phosphatase 102 U/L (46-116); Anion Gap 12.1 mmol/L (3-11); BUN 10 mg/dL (7-18); Bilirubin, Total 0.5 mg/dL (0.2-1.0); CO2 22.9 mmol/L (21.0-32.0); CREATININE 0.91 mg/dL (0.55-1.02); Calcium 9.5 mg/dL (8.5-10.1); Chloride 104 mmol/L (98-107); Glucose 100 mg/dL (74-106); Potassium 3.9 mmol/L (3.5-5.1); Sodium 139 mmol/L (136-145); TSH (W/Ref FT4) 0.48 uIU/mL (0.36-3.74); Total Protein 7.5 g/dL (6.4-8.2)
== END 2019-09-15 14:40 ==
LOC: LBO 14:20
PROVIDERS: PCP Nurse Practitioner; Visit Provider Student in an Organized Health Care Education/Training Program
DX: E03.9 Hypothyroidism, unspecified (principal); I10 Essential (primary) hypertension; F41.1 Generalized anxiety disorder; F39 Unspecified mood [affective] disorder
CPT/HCPCS: 80053; 85027; 84443

== ENCOUNTER 2019-10-07 09:01 | Outpatient (REF) | payer BC, MEDICAID, SELFPAY ==
[2019-10-08 11:24] LABS: Campylobacter PCR Negative (Negative); Salmonella PCR Negative (Negative); Shiga Toxin PCR Negative (Negative); Shigella/Enteroinvasive Ecoli Negative (Negative)
== END 2019-10-07 09:21 ==
LOC: LBN 09:01
PROVIDERS: PCP Nurse Practitioner; Visit Provider Nurse Practitioner
DX: R10.31 Right lower quadrant pain (principal); R19.5 Other fecal abnormalities
CPT/HCPCS: 87505

== ENCOUNTER 2019-10-15 16:29 | Emergency (ER) | payer BC, MEDICAID, SELFPAY ==
[2019-10-15] VITALS (24 sets, daily range): BP systolic 111–126; BP diastolic 69–94; PULSE 78–99; RESP 16–18; TEMP 36.5–36.7; O2SAT 96–99
--- NOTE | 2019-10-15 18:00 | RT.EKG_ITS ---
APPROVED REPORT Exam: Resting ECG Patient Location: E HR:92 bpm ECG Measurements Heart Rate 92 AXIS OH 134 P 57 QRSd 94 QRS 77 QT 365 T 50 QTc 451 <Conclusion> Sinus rhythm...normal P axis, V-rate 60- 99
--- NOTE | 2019-10-15 18:07 | NUR.NOTE ---
Nursing Note: 1800 Discharge Rn out to waiting room to inform patient of multiple rescues and no room available at this time. Patient complaining of neck tightness, order obtained for an ECG. Patient brought back to the triage room for EKG.
[2019-10-15] MEDS: Ketorolac 30 MG/ML VIAL IVP (20:22)
[2019-10-15 20:23] LABS: Abs Immature Grans 0.02 10^3/uL (0.0-0.06); Absolute Basophil Count 0.03 10^3/uL (0.0-0.2); Absolute Eosinophil Count 0.12 10^3/uL (0.0-0.7); Absolute Lymphocyte Count 1.82 10^3/uL (1.2-3.4); Absolute Monocyte Count 0.47 10^3/uL (0.1-0.8); Absolute Neutrophil Count 6.57 10^3/uL (1.2-6.7); Basophils % 0.3; Eosinophils % 1.3; HCT 40.9 % (36.0-46.0); HGB 13.8 g/dL (11.2-15.7); Immature Grans % 0.2; Lymphocytes % 20.2; MCH 30.3 pg (27.0-33.0); MCHC 33.7 % (32.0-36.0); MCV 89.7 fL (80-95); MPV 10.9 fL (8.0-11.0); Monocytes % 5.2; Neutrophils % 72.8; Platelet Count 323 10^3/uL (130-400); RBC 4.56 10^6/uL (3.93-5.22); RDW 11.7 % (11.7-14.6); RDW-SD 37.9 fL; WBC 9.03 10^3/uL (4.4-10.8)
[2019-10-15] MEDS: LORazepam 2 MG/ML VIAL 1 MG IM/IV (20:23)
[2019-10-15 20:30] LABS: Bilirubin Negative (Negative); Blood Negative (Negative); Clarity Sl Cloudy (Clear); Glucose Negative (Negative); Ketones Negative (Negative); Leukocyte Esterase Negative (Negative); Nitrite Negative (Negative); Specific Gravity >= 1.030 (1.005-1.025); Urobilinogen 0.2 EU/dL (Up TO 0.2); pH 5.5 (5-8)
[2019-10-15 20:47] LABS: ALT 25 U/L (14-59); AST 14 U/L (15-37); Albumin 4.2 g/dL (3.4-5.0); Alkaline Phosphatase 98 U/L (46-116); Anion Gap 10.6 mmol/L (3-11); BUN 10 mg/dL (7-18); Bilirubin, Total 0.7 mg/dL (0.2-1.0); CO2 24.4 mmol/L (21.0-32.0); CREATININE 0.98 mg/dL (0.55-1.02); Calcium 9.5 mg/dL (8.5-10.1); Chloride 105 mmol/L (98-107); Glucose 102 mg/dL (74-106); Potassium 3.4 mmol/L (3.5-5.1); Sodium 140 mmol/L (136-145); TSH (W/Ref FT4) 1.16 uIU/mL (0.36-3.74); Total Protein 7.9 g/dL (6.4-8.2)
[2019-10-15 20:59] LABS: *AMPHETAMINES SCREEN URINE Negative (Negative); *BARBITURATES SCREEN URINE Negative (Negative); *BENZODIAZEPINES SCREEN URINE Negative (Negative); Cannabinoids THC Negative (Negative); Cocaine Screen,Urine Negative (Negative); METHADONE URINE SCREEN Negative (Negative); OPIATES URINE SCREEN Negative (Negative)
[2019-10-15 21:00] LABS: Tricyclic Antidepressants Negative (Negative)
[2019-10-15 21:01] LABS: Troponin I < 0.05 ng/mL (<0.06)
--- NOTE | 2019-10-15 21:34 | ED.GENADUL_ITS ---
Discharge Plan Disposition Patient Disposition: HOME Condition: Stable Discharge Details Chief Complaint: Anxiety Clinical Impression: Anxiety Primary Care Provider: Rosi Hitchcock ED Provider: Nash Cohen Home Meds and New Rx's Prescriptions: Continued albuterol sulfate 90 mcg/actuation HFA aerosol inhaler 2 puff IH Q4H PRN (Reason: bronchospasm) Qty: 8.5 RF: 0 ibuprofen 800 mg tablet 800 mg PO TID PRN (Reason: pain) Qty: 30 RF: 5 acetylcysteine [NAC] 600 mg capsule 600 mg PO BID RF: 0 gabapentin 100 mg capsule 200 mg PO HS Qty: 180 RF: 2 buspirone 5 mg tablet 5 mg PO TID RF: 0 levomefolate calcium [L-Methylfolate] 15 mg tablet 15 mg PO DAILY Qty: 90 RF: 3 bupropion HCl [Wellbutrin XL] 300 mg tablet extended release 24 hr 300 mg PO QAM Qty: 90 RF: 3 levothyroxine 25 mcg tablet 25 mcg PO DAILY Qty: 90 RF: 3 esomeprazole magnesium [Nexium] 20 mg Capsule,Delayed Release(Dr/Ec) 20 mg PO DAILY RF: 0 Discharge Instructions Instructions: Anxiety (ED) Additional Instructions: At this time your laboratory values are unremarkable. I have given you the number for the [facility] human services emergency service line, please call them over the weekend if you need to. Otherwise I recommend trying to be seen on Friday rather than Friday as already scheduled. I know that you have concerns regarding your current medications and whether or not you should continue taking them. I do recommend discussing this with the provider prescribing them. You did respond nicely to the Ativan here in the ER. Please watch for new or worsening symptoms and return to the ER for any concerns. Discharge Data Discharge Date/Time-TO BE ENTERED AT DEPARTURE: 10/15/19 21:45 Medical Decision Making 43-year-old female presents to the ER with paresthesias to her extremities and face as well as a posterior headache, increasing anxiety and difficulty controlling her moods. She denies any suicidal or homicidal ideations. She reports a sensation at the base of her throat I cannot really give additional description. She does appear anxious and is tearful at times. Medication changes did occur recently and she is now taking BuSpar. She appears well, nontoxic. Blood pressure 120/79. Pulse in the 90s. She is afebrile. Certainly serotonin syndrome does cross my mind however clinically she does not appear to have this. We discussed our treatment options. I would like to obtain routine laboratory values including EKG and troponin. I do believe given the length of her symptoms a single troponin is sufficient for cardiac rule out here in the ER. I would like to trial her with a single milligram of IV Ativan and give her a single dose of 30 IV Toradol to see if we can help with her paresthesias as well as her posterior mild headache. I would also like to obtain CBC, CMP, thyroid studies, urinalysis and tox screen. Work-up in the ER is unremarkable. CBC, CMP nonemergent. Potassium is 3.4. Troponin less than 0.05. TSH 1.16. Urinalysis unremarkable. Tox screen unremarkable. I discussed the work-up with patient. She is relieved. Upon reevaluation she reports that her headache has resolved completely and that the paresthesias in the sensation in the base of her neck-throat have also resolved completely. At this point we had a very long discussion. I gave her the emergency number for the [facility] human services team so that if she feels as though she is unable to cope over the weekend contacting them would likely be very beneficial. I also recommend that she attempt to be seen on Friday rather than Friday by her psychiatric provider. She will also have her blood work drawn this upcoming week for her work-up through her woman's health. We discussed that the ER does not typically prescribe benzodiazepine for outpatient setting and I would feel much more comfortable if she discussed this with her provider on Friday. We discussed these medications can be potentially addicting and they may want to trial other medications before they go to a fast acting benzodiazepine. Patient completely understands this and is quite comfortable with discharge now. Medical Records Medical records reviewed: Yes I reviewed the patient's medical records. Lab Data Lab results reviewed: Yes I reviewed the patient's lab results. Lab results narrative: Laboratory Tests Range/Units 10/15/19 10/15/19 10/15/19 20:15 20:15 20:15 WBC (4.4-10.8) 10^3/uL 9.03 RBC (3.93-5.22) 10^6/uL 4.56 Hgb (11.2-15.7) g/dL 13.8 Hct (36.0-46.0) % 40.9 MCV (80-95) fL 89.7 MCH (27.0-33.0) pg 30.3 MCHC (32.0-36.0) % 33.7 RDW (11.7-14.6) % 11.7 Plt Count (130-400) 10^3/uL 323 MPV (8.0-11.0) fL 10.9 Immature Gran % 0.2 Neutrophils % 72.8 Lymphocytes % 20.2 Monocytes % 5.2 Eosinophils % 1.3 Basophils % 0.3 Absolute Neutrophils (1.2-6.7) 10^3/uL 6.57 Absolute Lymphocytes (1.2-3.4) 10^3/uL 1.82 Absolute Monocytes (0.1-0.8) 10^3/uL 0.47 Absolute Eosinophils (0.0-0.7) 10^3/uL 0.12 Absolute Basophils (0.0-0.2) 10^3/uL 0.03 Sodium (136-145) mmol/L 140 Potassium (3.5-5.1) mmol/L 3.4 L Chloride (98-107) mmol/L 105 Carbon Dioxide (21.0-32.0) mmol/L 24.4 Anion Gap (3-11) mmol/L 10.6 BUN (7-18) mg/dL 10 Creatinine (0.55-1.02) mg/dL 0.98 Estimated GFR/1.73 m2 (mL/min/1.73m2) >= 60.00 Glucose (74-106) mg/dL 102 Calcium (8.5-10.1) mg/dL 9.5 Total Bilirubin (0.2-1.0) mg/dL 0.7 AST (15-37) U/L 14 L ALT (14-59) U/L 25 Alkaline Phosphatase (46-116) U/L 98 Troponin I (<0.06) ng/mL < 0.05 Total Protein (6.4-8.2) g/dL 7.9 Albumin (3.4-5.0) g/dL 4.2 TSH (0.36-3.74) uIU/mL 1.16 Urine Color (Yellow) Urine Clarity (Clear) Urine pH (5-8) Ur Specific [place] (1.005-1.025) Urine Protein (Negative) mg/dL Urine Ketones (Negative) mg/dL Urine Blood (Negative) Urine Nitrite (Negative) Urine Bilirubin (Negative) Urine Urobilinogen (Up TO 0.2) EU/dL Ur Leukocyte Esterase (Negative) Urine Glucose (Negative) mg/dL Urine Opiates Screen (Negative) Negative Urine Methadone Screen (Negative) Negative Ur Barbiturates Screen (Negative) Negative Ur Tricyclics Screen (Negative) Negative Ur Amphetamines Screen (Negative) Negative U Benzodiazepines Scrn (Negative) Negative Urine Cocaine Screen (Negative) Negative Ur THC Screen (Negative) Negative Range/Units 10/15/19 20:15 WBC (4.4-10.8) 10^3/uL RBC (3.93-5.22) 10^6/uL Hgb (11.2-15.7) g/dL Hct (36.0-46.0) % MCV (80-95) fL MCH (27.0-33.0) pg MCHC (32.0-36.0) % RDW (11.7-14.6) % Plt Count (130-400) 10^3/uL MPV (8.0-11.0) fL Immature Gran % Neutrophils % Lymphocytes % Monocytes % Eosinophils % Basophils % Absolute Neutrophils (1.2-6.7) 10^3/uL Absolute Lymphocytes (1.2-3.4) 10^3/uL Absolute Monocytes (0.1-0.8) 10^3/uL Absolute Eosinophils (0.0-0.7) 10^3/uL Absolute Basophils (0.0-0.2) 10^3/uL Sodium (136-145) mmol/L Potassium (3.5-5.1) mmol/L Chloride (98-107) mmol/L Carbon Dioxide (21.0-32.0) mmol/L Anion Gap (3-11) mmol/L BUN (7-18) mg/dL Creatinine (0.55-1.02) mg/dL Estimated GFR/1.73 m2 (mL/min/1.73m2) Glucose (74-106) mg/dL Calcium (8.5-10.1) mg/dL Total Bilirubin (0.2-1.0) mg/dL AST (15-37) U/L ALT (14-59) U/L Alkaline Phosphatase (46-116) U/L Troponin I (<0.06) ng/mL Total Protein (6.4-8.2) g/dL Albumin (3.4-5.0) g/dL TSH (0.36-3.74) uIU/mL Urine Color (Yellow) Yellow Urine Clarity (Clear) Sl cloudy Urine pH (5-8) 5.5 Ur Specific [place] (1.005-1.025) >= 1.030 H Urine Protein (Negative) mg/dL Negative Urine Ketones (Negative) mg/dL Negative Urine Blood (Negative) Negative Urine Nitrite (Negative) Negative Urine Bilirubin (Negative) Negative Urine Urobilinogen (Up TO 0.2) EU/dL 0.2 Ur Leukocyte Esterase (Negative) Negative Urine Glucose (Negative) mg/dL Negative Urine Opiates Screen (Negative) Urine Methadone Screen (Negative) Ur Barbiturates Screen (Negative) Ur Tricyclics Screen (Negative) Ur Amphetamines Screen (Negative) U Benzodiazepines Scrn (Negative) Urine Cocaine Screen (Negative) Ur THC Screen (Negative) ECG Data Attestation: I personally reviewed and interpreted this ECG (s) as follows: Interpretation: EKG performed at 1809, reviewed with Dr. Darnell, please see her official report. Sinus rhythm, ventricular rate 92. No STEMI. HPI General Mode of arrival: ambulatory . Date/Time Provider Initiated Documentation: 10/15/19 16:36 . Limitations to Documentation: no limitations . Information obtained by: patient . HPI Narrative: This is a 43-year-old female with a history of anxiety, depression, aortic valve regurgitation, GERD, hypothyroidism, mood disorder, presenting to the ER for what she describes as anxiety. She states that she was followed by her primary care provider who felt as though she would be better off followed by a specialist to evaluate her anxiety and reassess her medications. She reports that she is extremely sensitive to medications. She subsequently was weaned off the majority of her medications and then has now started buspirone. She is scheduled to be seen by her psychiatric provider on Friday. She reports that over the last several days she feels as though her anxiety is getting worse and she is having a hard time coping. She has been experiencing tingling in her hands, feet, around her face. She reports a sensation at the base of her neck on the anterior aspect. She has a hard time describing exactly what she is feeling but she denies any chest pain or shortness of breath. She denies any difficulty swallowing or speaking. She also reports a mild posterior headache. The triage note reported dizziness however she denies this to me. She reports that she is also in the middle of being worked up by [facility] [employer] to check her hormones. She denies any recent illness or trauma. She denies visual changes, sore throat, chest pain, shortness of breath, back pain, abdominal pain, nausea vomiting, numbness or weakness. She denies any suicidal or homicidal ideations. She is unaware of any obvious stressors in her life but feels as though she simply cannot control her emotions. Related Data Home Medications Medication Instructions Recorded Confirmed albuterol sulfate 90 mcg/actuation 2 puff IH Q4H PRN #8.5 gm 12/23/17 10/15/19 aerosol inhaler ibuprofen 800 mg tablet 800 mg PO TID PRN #30 tab 01/05/19 10/15/19 esomeprazole magnesium [Nexium] 20 mg PO DAILY 02/23/19 10/15/19 levomefolate calcium 15 mg tablet 15 mg PO DAILY #90 tab 03/23/19 10/15/19 bupropion HCl 300 mg 24 hr tablet, 300 mg PO QAM #90 tab 04/06/19 10/15/19 extended release levothyroxine 25 mcg tablet 25 mcg PO DAILY #90 tab 09/29/19 10/15/19 acetylcysteine 600 mg capsule 600 mg PO BID 10/05/19 10/05/19 gabapentin 100 mg capsule 200 mg PO HS #180 cap 10/05/19 10/15/19 buspirone 5 mg tablet 5 mg PO TID tab 10/15/19 10/15/19 Previous Rx's Medication Instructions Recorded albuterol sulfate 90 mcg/actuation 2 puff IH Q4H PRN #8.5 gm 12/23/17 aerosol inhaler ibuprofen 800 mg tablet 800 mg PO TID PRN #30 tab 01/05/19 levomefolate calcium 15 mg tablet 15 mg PO DAILY #90 tab 03/23/19 bupropion HCl 300 mg 24 hr tablet, 300 mg PO QAM #90 tab 04/06/19 extended release levothyroxine 25 mcg tablet 25 mcg PO DAILY #90 tab 09/29/19 gabapentin 100 mg capsule 200 mg PO HS #180 cap 10/05/19 Allergies Allergy/AdvReac Type Severity Reaction Status Date / Time lamotrigine [From Lamictal] AdvReac Severe Psychosis Unverified 10/15/19 19:17 topiramate [From Topamax] AdvReac Severe Other (See Unverified 10/15/19 19:19 Comment) trazodone AdvReac Severe Headache Unverified 10/15/19 19:19 promethazine AdvReac Intermediate made her Verified 10/15/19 16:37 loopy, outof it Sulfa (Sulfonamide AdvReac Intermediate vomiting Verified 10/15/19 16:37 Antibiotics) General Stated Complaint: Anxiety ELMA: 3 Review of Systems Constitutional Constitutional: Denies fatigue, Denies fever(s), Reports headache(s) and Denies weakness Eyes Eyes: Denies diplopia ENT Ears, Nose, Mouth, and Throat: Reports headache(s), Denies neck pain, Denies sore throat and Denies throat swelling Cardiovascular Cardiovascular: Denies chest pain and Denies dyspnea Respiratory Respiratory: Denies cough, Denies dyspnea and Denies wheezing Gastrointestinal Gastrointestinal: Denies abdominal pain, Denies nausea and Denies vomiting Genitourinary Genitourinary: Denies dysuria Musculoskeletal Musculoskeletal: Denies back pain, Denies neck pain, Denies numbness and Reports tingling Integumentary/Breasts Skin/Breast: Denies rash Neurologic Neurologic: Reports headache(s), Denies numbness, Reports tingling and Denies weakness Psychiatric Psychiatric: Reports anxiety, Denies homicidal ideation and Denies suicidal ideation Endocrine Endocrine: Denies fatigue Allergic/Immunologic Allergic/Immunologic: Denies throat swelling and Denies wheezing [facility] Medical History Abnormal uterine bleeding (Acute) EMBx with disordered proliferative endometrium. 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 gastro IUD surveillance (Acute) Major depressive disorder, recurrent severe without psychotic features (Chronic) Medication reaction (Acute) Possibly 2' lamotrigine & topiramate ? Mood disorder (Acute) INDER (obstructive sleep apnea) (Chronic) Pt states she does not use device, sleeps propped up Personal history of cervical dysplasia (Chronic 12/08/15) 2008 SEBASTIAN III - LEEP Rx Surgical History Cervical Procedure (~2008) LEEP History of elbow surgery (Acute) R elbow Ligation of fallopian tube 2002 or 2003 Family History Father Unknown family medical history Mother Unknown family medical history Alcohol abuse Drug abuse Son Depression treated with Vitamin D Son Depression Social History Smoking/Tobacco Use Status: Never Alcohol Intake: current Alcohol Intake frequency: holidays/special occasions only Drug use: Never Substance use type: does not use Household members: significant other Housing: house Number of Children: 2 Communication Needs: Corrective Lenses Do you need help understanding health information?: Rarely 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 Pets and animals: Yes Pets and animals: dog(s) Current gender identity: female What type of physical activity do you participate in: none Seatbelt use: always Helmet use: Yes Firearms in home: Yes Firearms unloaded and locked: Yes Do you feel safe at home: Yes Do you feel safe in your relationship?: Yes Female Reproductive History Menstrual control method: permanent sterilization History History 3 Para 2 Hx # Term Pregnancies Multiple births Hx # Pregnancies Ectopic pregnancies AB induced Hx Number of Living Children AB spontaneous Exam Const General: cooperative, healthy appearing, comfortable, no acute distress and anxious (Tearful at times) Orientation: alert, awake and oriented x3 HENMT Head: normal to inspection, normocephalic and atraumatic Face and sinus: normal facial exam Mouth: moist mucous membranes Throat: posterior oropharynx normal Eyes General: appearance normal, both eyes and all related structures Alignment and Position: alignment normal Periorbital: periorbital findings normal Eyelids: eyelids normal Conjunctivae: conjunctivae normal Sclera: sclerae normal Cornea: corneas normal Pupils: PERRL EOM: EOM intact bilaterally Direct ophthalmoscopy: normal light reflex Neck Neck: normal visual inspection, full ROM, no meningeal signs, trachea midline, supple and nontender Resp Effort & Inspection: normal respiratory effort and able to speak in complete sentences Auscultation: clear to auscultation bilaterally Cardio Rate: regular rate Rhythm: regular rhythm GI Palpation: soft and nontender Back/Spine/Pelvis Back: No back tenderness Skin General skin exam: no rashes or lesions noted Neuro General: patient alert, patient awake, patient oriented x3, moves all extremities and no focal motor deficits Cranial Nerves: CN's II-XI intact bilaterally Cognition: normal cognition Speech: speech normal Gait: normal gait Motor: muscle tone normal throughout and strength 5/5 throughout Sensory Exam: no sensory deficits noted Extrem General: normal to inspection, full ROM and capillary refill normal Psych Appearance: grossly normal Mental Status: mental status grossly normal Speech and Movement: speech and movement normal Mood: anxious mood Affect: anxious affect Attitude: cooperative Thought Process: normal Insight: insight good Judgment: judgment good Course Vital Signs Vital signs: Vital Signs Temperature 36.7 C 10/15/19 16:32 Pulse 96 H 10/15/19 16:32 Respiratory Rate 16 10/15/19 16:32 Blood Pressure 120/79 10/15/19 16:32 Pulse Oximetry 96 10/15/19 16:32 Temperature 36.5 C 10/15/19 18:12 Temperature Source Skin 10/15/19 18:12 Pulse 78 10/15/19 21:16 Pulse Rhythm Regular 10/15/19 18:12 Pulse Strength Normal 10/15/19 18:12 Respiratory Rate 16 10/15/19 19:19 Respiratory Effort Non-Labored 10/15/19 19:19 Respiratory Depth Normal 10/15/19 19:19 Respiratory Pattern Normal 10/15/19 19:19 Blood Pressure 121/81 10/15/19 21:16 Blood Pressure Mean 92 10/15/19 21:16 Blood Pressure Position Sitting 10/15/19 18:12 Pulse Oximetry 97 10/15/19 21:16 Oxygen Delivery Method Room Air 10/15/19 19:19 Oxygen Flow Rate 0 10/15/19 19:19 Pain Level 0 10/15/19 20:52 Lab/Test Results Lab/Test Results: Laboratory Tests Range/Units 07/10/15/19 10/15/19 20:15 20:15 20:15 WBC (4.4-10.8) 10^3/uL 9.03 RBC (3.93-5.22) 10^6/uL 4.56 Hgb (11.2-15.7) g/dL 13.8 Hct (36.0-46.0) % 40.9 MCV (80-95) fL 89.7 MCH (27.0-33.0) pg 30.3 MCHC (32.0-36.0) % 33.7 RDW (11.7-14.6) % 11.7 Plt Count (130-400) 10^3/uL 323 MPV (8.0-11.0) fL 10.9 Immature Gran % 0.2 Neutrophils % 72.8 Lymphocytes % 20.2 Monocytes % 5.2 Eosinophils % 1.3 Basophils % 0.3 Absolute Neutrophils (1.2-6.7) 10^3/uL 6.57 Absolute Lymphocytes (1.2-3.4) 10^3/uL 1.82 Absolute Monocytes (0.1-0.8) 10^3/uL 0.47 Absolute Eosinophils (0.0-0.7) 10^3/uL 0.12 Absolute Basophils (0.0-0.2) 10^3/uL 0.03 Sodium (136-145) mmol/L 140 Potassium (3.5-5.1) mmol/L 3.4 L Chloride (98-107) mmol/L 105 Carbon Dioxide (21.0-32.0) mmol/L 24.4 Anion Gap (3-11) mmol/L 10.6 BUN (7-18) mg/dL 10 Creatinine (0.55-1.02) mg/dL 0.98 Estimated GFR/1.73 m2 (mL/min/1.73m2) >= 60.00 Glucose (74-106) mg/dL 102 Calcium (8.5-10.1) mg/dL 9.5 Total Bilirubin (0.2-1.0) mg/dL 0.7 AST (15-37) U/L 14 L ALT (14-59) U/L 25 Alkaline Phosphatase (46-116) U/L 98 Troponin I (<0.06) ng/mL < 0.05 Total Protein (6.4-8.2) g/dL 7.9 Albumin (3.4-5.0) g/dL 4.2 TSH (0.36-3.74) uIU/mL 1.16 Urine Color (Yellow) Urine Clarity (Clear) Urine pH (5-8) Ur Specific [place] (1.005-1.025) Urine Protein (Negative) mg/dL Urine Ketones (Negative) mg/dL Urine Blood (Negative) Urine Nitrite (Negative) Urine Bilirubin (Negative) Urine Urobilinogen (Up TO 0.2) EU/dL Ur Leukocyte Esterase (Negative) Urine Glucose (Negative) mg/dL Urine Opiates Screen (Negative) Negative Urine Methadone Screen (Negative) Negative Ur Barbiturates Screen (Negative) Negative Ur Tricyclics Screen (Negative) Negative Ur Amphetamines Screen (Negative) Negative U Benzodiazepines Scrn (Negative) Negative Urine Cocaine Screen (Negative) Negative Ur THC Screen (Negative) Negative Range/Units 10/15/19 20:15 WBC (4.4-10.8) 10^3/uL RBC (3.93-5.22) 10^6/uL Hgb (11.2-15.7) g/dL Hct (36.0-46.0) % MCV (80-95) fL MCH (27.0-33.0) pg MCHC (32.0-36.0) % RDW (11.7-14.6) % Plt Count (130-400) 10^3/uL MPV (8.0-11.0) fL Immature Gran % Neutrophils % Lymphocytes % Monocytes % Eosinophils % Basophils % Absolute Neutrophils (1.2-6.7) 10^3/uL Absolute Lymphocytes (1.2-3.4) 10^3/uL Absolute Monocytes (0.1-0.8) 10^3/uL Absolute Eosinophils (0.0-0.7) 10^3/uL Absolute Basophils (0.0-0.2) 10^3/uL Sodium (136-145) mmol/L Potassium (3.5-5.1) mmol/L Chloride (98-107) mmol/L Carbon Dioxide (21.0-32.0) mmol/L Anion Gap (3-11) mmol/L BUN (7-18) mg/dL Creatinine (0.55-1.02) mg/dL Estimated GFR/1.73 m2 (mL/min/1.73m2) Glucose (74-106) mg/dL Calcium (8.5-10.1) mg/dL Total Bilirubin (0.2-1.0) mg/dL AST (15-37) U/L ALT (14-59) U/L Alkaline Phosphatase (46-116) U/L Troponin I (<0.06) ng/mL Total Protein (6.4-8.2) g/dL Albumin (3.4-5.0) g/dL TSH (0.36-3.74) uIU/mL Urine Color (Yellow) Yellow Urine Clarity (Clear) Sl cloudy Urine pH (5-8) 5.5 Ur Specific [place] (1.005-1.025) >= 1.030 H Urine Protein (Negative) mg/dL Negative Urine Ketones (Negative) mg/dL Negative Urine Blood (Negative) Negative Urine Nitrite (Negative) Negative Urine Bilirubin (Negative) Negative Urine Urobilinogen (Up TO 0.2) EU/dL 0.2 Ur Leukocyte Esterase (Negative) Negative Urine Glucose (Negative) mg/dL Negative Urine Opiates Screen (Negative) Urine Methadone Screen (Negative) Ur Barbiturates Screen (Negative) Ur Tricyclics Screen (Negative) Ur Amphetamines Screen (Negative) U Benzodiazepines Scrn (Negative) Urine Cocaine Screen (Negative) Ur THC Screen (Negative)
== END 2019-10-15 21:45 | disposition home or self-care (01) ==
PROVIDERS: Emergency Provider Physician Assistant; PCP Nurse Practitioner
DX: R20.2 Paresthesia of skin (principal); R09.89 Other specified symptoms and signs involving the circulatory and respiratory systems; F41.8 Other specified anxiety disorders; R51 Headache
CPT/HCPCS: 36415; 80053; 80307; 93005; 96374; 96375; 99284; 81003; 84443; 84484; 85025; 93010; 99285; J1885; J2060

== ENCOUNTER 2019-10-18 01:57 | Outpatient (CLI) | payer BC, MEDICAID, SELFPAY ==
[2019-10-18 16:27] LABS: Estradiol 77 pg/mL (See Note)
[2019-10-19 08:34] LABS: FSH 5.8 mIU/mL (See Note)
== END 2019-10-18 02:17 ==
PROVIDERS: PCP Nurse Practitioner; Visit Provider Nurse Practitioner Family
DX: N95.1 Menopausal and female climacteric states (principal)
CPT/HCPCS: 36415; 82670; 83001; 83002

== ENCOUNTER 2019-10-21 12:27 | Emergency (ER) | payer BC, MEDICAID, SELFPAY ==
[2019-10-21] VITALS (21 sets, daily range): BP systolic 123–134; BP diastolic 74–87; PULSE 79–90; RESP 18; TEMP 36.7–36.9; O2SAT 96–100
--- NOTE | 2019-10-21 12:58 | ED.GENADUL_ITS ---
Discharge Plan Disposition Patient Disposition: HOME Condition: Stable Discharge Details Chief Complaint: RespSymp Clinical Impression: Globus pharyngeus Primary Care Provider: Rosi Hitchcock ED Provider: Akash Shaffer Home Meds and New Rx's Prescriptions: New Cepacol Sore Throat (sallie-men) 15-2.3 mg lozenge 1 lashell PO Q4H PRN PRN (Reason: throat discomfort) 7 Days Qty: 16 RF: 0 Continued albuterol sulfate 90 mcg/actuation HFA aerosol inhaler 2 puff IH Q4H PRN (Reason: bronchospasm) Qty: 8.5 RF: 0 ibuprofen 800 mg tablet 800 mg PO TID PRN (Reason: pain) Qty: 30 RF: 5 acetylcysteine [NAC] 600 mg capsule 600 mg PO BID RF: 0 gabapentin 100 mg capsule 200 mg PO HS Qty: 180 RF: 2 levomefolate calcium [L-Methylfolate] 15 mg tablet 15 mg PO DAILY Qty: 90 RF: 3 bupropion HCl [Wellbutrin XL] 300 mg tablet extended release 24 hr 300 mg PO QAM Qty: 90 RF: 3 levothyroxine 25 mcg tablet 25 mcg PO DAILY Qty: 90 RF: 3 esomeprazole magnesium [Nexium] 20 mg Capsule,Delayed Release(Dr/Ec) 20 mg PO DAILY RF: 0 Discharge Instructions Additional Instructions: Your Strep test was negative. May use Cepacol lozenges, as prescribed, as needed for comfort. Saline mist to both nostrils 2-[address] times per [address] May place Vaseline to both nostrils at bedtime. You may benefit from increasing her Nexium from 20 mg daily to 20 mg 2 times per day. Continue your medications as prescribed. I will place a referral for you today to otolaryngology clinic for reevaluation. We have placed a referral to neurology today. I discussed your case with Rosi Hitchcock today. Medical Decision Making 43-year-old female presents from home complaining of intermittent episodes of throat tightness, feeling dryness, difficulty with swallowing over 2 weeks time. States that it worsened while talking to her mental health provider this morning, but denies to me acute anxiety. States she recently was taken off of buspirone. Denies other medication changes. Vital signs are unremarkable. She intermittently is able to speak without difficulty, then during exam has to pause for worsening. Differential diagnosis would include hypopharengeal mass, esophagitis, dysphasia, nutcracker esophagus, anxiety/globus pharyngeus, calcified stylohyoid ligament, nodule. Patient denies that this feels like previous anxiety attack. States she was seen at [facility] this weekend and had an unremarkable CT scan of her head. Screening labs and CT images obtained, without any acute findings. Patient was initially slightly tachycardic but this resolved with a pulse in the 80s to 90s at rest and she is able to speak on her cell phone without difficulty. Discussed with her that this may be globus pharyngeus and with her history of GERD she is at somewhat increased risk. May benefit from ENT evaluation and possible flexible laryngoscopy. I discussed her case with her primary care provider, Rosi Hitchcock. She has been in consultation with psychiatry regarding the patient and has been waiting to hear the patient's preference for referral to neurology here or at [facility]. The patient states to me she would happily be seen in our clinic and I will place a referral. Out of an abundance of caution a COVID test was obtained and patient had a screening [id number] strep test (negative). Lab Data Lab results reviewed: Yes I reviewed the patient's lab results. Labs: Laboratory Results - last 24 hr 10/21/19 10/21/19 12:36 12:36 WBC 6.37 RBC 4.51 Hgb 13.6 Hct 40.0 MCV 88.7 MCH 30.2 MCHC 34.0 RDW 11.5 L Plt Count 330 MPV 10.9 Immature Gran % 0.2 Neutrophils % 73.7 Lymphocytes % 18.8 Monocytes % 5.2 Eosinophils % 1.6 Basophils % 0.5 Absolute Neutrophils 4.70 Absolute Lymphocytes 1.20 Absolute Monocytes 0.33 Absolute Eosinophils 0.10 Absolute Basophils 0.03 Sodium 139 Potassium 3.6 Chloride 103 Carbon Dioxide 23.7 Anion Gap 12.3 H BUN 8 Creatinine 1.00 Estimated GFR/1.73 m2 >= 60.00 Glucose 112 H Calcium 9.4 Total Bilirubin 0.6 AST 17 ALT 31 Alkaline Phosphatase 100 Total Protein 8.1 Albumin 4.2 HPI General Mode of arrival: ambulatory . Date/Time Provider Initiated Documentation: 10/21/19 12:34 . Limitations to Documentation: no limitations . Information obtained by: patient . History of Present Illness 43 year old F presents to the emergency department with the chief complaint of Difficulty swallowing and dry throat, described as moderate, Quality is described as dull, and is localized to the mouth. Patient reports no radiation. Patient started experiencing this week(s) and it has been intermittent. No relieving factors improve symptom(s), No exacerbating factors reported . Patient notes denies cough, shortness of breath and syncope. Patient did receive the following treatments prior to arrival, none Related Data Home Medications Medication Instructions Recorded Confirmed albuterol sulfate 90 mcg/actuation 2 puff IH Q4H PRN #8.5 gm 12/23/17 10/21/19 aerosol inhaler ibuprofen 800 mg tablet 800 mg PO TID PRN #30 tab 01/05/19 10/21/19 esomeprazole magnesium [Nexium] 20 mg PO DAILY 02/23/19 10/21/19 levomefolate calcium 15 mg tablet 15 mg PO DAILY #90 tab 03/23/19 10/21/19 bupropion HCl 300 mg 24 hr tablet, 300 mg PO QAM #90 tab 04/06/19 10/21/19 extended release levothyroxine 25 mcg tablet 25 mcg PO DAILY #90 tab 09/29/19 10/21/19 acetylcysteine 600 mg capsule 600 mg PO BID 10/05/19 10/21/19 gabapentin 100 mg capsule 200 mg PO HS #180 cap 10/05/19 10/21/19 benzocaine-menthol [Cepacol Sore 1 lashell PO Q4H PRN PRN 7 Days #16 10/21/19 Throat (sallie-men)] each NS Previous Rx's Medication Instructions Recorded albuterol sulfate 90 mcg/actuation 2 puff IH Q4H PRN #8.5 gm 12/23/17 aerosol inhaler ibuprofen 800 mg tablet 800 mg PO TID PRN #30 tab 01/05/19 levomefolate calcium 15 mg tablet 15 mg PO DAILY #90 tab 03/23/19 bupropion HCl 300 mg 24 hr tablet, 300 mg PO QAM #90 tab 04/06/19 extended release levothyroxine 25 mcg tablet 25 mcg PO DAILY #90 tab 09/29/19 gabapentin 100 mg capsule 200 mg PO HS #180 cap 10/05/19 benzocaine-menthol [Cepacol Sore 1 lashell PO Q4H PRN PRN 7 Days #16 10/21/19 Throat (sallie-men)] each NS Allergies Allergy/AdvReac Type Severity Reaction Status Date / Time lamotrigine [From Lamictal] AdvReac Severe Psychosis Unverified 10/21/19 12:40 topiramate [From Topamax] AdvReac Severe Other (See Unverified 10/21/19 12:40 Comment) trazodone AdvReac Severe Headache Unverified 10/21/19 12:40 promethazine AdvReac Intermediate made her Verified 10/21/19 12:40 loopy, outof it Sulfa (Sulfonamide AdvReac Intermediate vomiting Verified 10/21/19 12:40 Antibiotics) General Stated Complaint: RespSymp ELMA: 3 Review of Systems Narrative: She describes intermittent episodes of posterior headache, anxiety, recent weaning off of buspirone, states she has resolving paresthesias of the extremities that are improving, has been referred to neurology. Denies fever, chills, cough. No dyspnea. 8 systems reviewed and otherwise negative [facility] Medical History Abnormal uterine bleeding (Acute) EMBx with disordered proliferative endometrium. Anxiety (Acute 09/28/12) Daniela Hull, renal social worker/therapist Anxiety and depression (Chronic) Aortic valve regurgitation (Acute 03/19/13) ECHO 12/18/2001 Anbx Prophylaxis GERD (gastroesophageal reflux disease) (Chronic) Hypothyroidism (Chronic) Irritable bowel syndrome with diarrhea (Acute) 06/25/17 [facility] gastro IUD surveillance (Acute) Major depressive disorder, recurrent severe without psychotic features (Chronic) Medication reaction (Acute) Possibly 2' lamotrigine & topiramate ? Mood disorder (Acute) INDER (obstructive sleep apnea) (Chronic) Pt states she does not use device, sleeps propped up Personal history of cervical dysplasia (Chronic 12/08/15) 2008 [facility] III - LEEP Rx Surgical History Cervical Procedure (~2008) LEEP History of elbow surgery (Acute) R elbow Ligation of fallopian tube 2002 or 2003 Family History Father Unknown family medical history Mother Unknown family medical history Alcohol abuse Drug abuse Son Depression treated with Vitamin D Son Depression Social History Smoking/Tobacco Use Status: Never Alcohol Intake: never Drug use: Never Substance use type: does not use Household members: significant other Housing: house Number of Children: 2 Communication Needs: Corrective Lenses Do you need help understanding health information?: Rarely 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 Pleasant, well groomed, interactive. HEAD: Normocephalic, atraumatic ENT: Mucous membranes moist, oropharynx unremarkable -no erythema, no exudate, no asymmetry, the uvula is midline, External ear exam unremarkable EYES: PERRL, EOMI NECK: Full ROM, no WARREN, no menigismus CHEST/RESP: Nontender, clear to auscultation bilateral, no wheeze/rhonchi/rales CARDIOVASCULAR: RRR, no murmur, rub lori. 2+ Rad pulse bilateral ABDOMEN: Soft, nontender, no mass. +Bowel sounds EXT: Full ROM, no edema, no rash Neuro: Grossly normal neurologic exam, conversant, interactive. Psych: Speech fluent, thoughts congruent, affect anxious Course Vital Signs Vital signs: Vital Signs Temperature 36.9 C 10/21/19 12:33 Pulse 90 10/21/19 12:33 Respiratory Rate 18 10/21/19 12:33 Blood Pressure 134/87 10/21/19 12:33 Pulse Oximetry 97 10/21/19 12:33 Temperature 36.9 C 10/21/19 12:33 Temperature Source Temporal Artery Scan 10/21/19 12:33 Pulse 90 10/21/19 12:33 Respiratory Rate 18 10/21/19 12:33 Respiratory Effort Non-Labored 10/21/19 12:47 Blood Pressure 134/87 10/21/19 12:33 Blood Pressure Position Sitting 10/21/19 12:33 Pulse Oximetry 97 10/21/19 12:33 Oxygen Delivery Method Room Air 10/21/19 12:33 Oxygen Flow Rate 0 10/21/19 12:33 Pain Level 5 10/21/19 12:33
[2019-10-21] MEDS: Normal Saline 1,000 ML 1000 ML IV (12:59)
[2019-10-21] MEDS: Normal Saline Flush 10 ML SYR IVP ×2 (12:59→14:00)
[2019-10-21 13:06] LABS: Abs Immature Grans 0.01 10^3/uL (0.0-0.06); Absolute Basophil Count 0.03 10^3/uL (0.0-0.2); Absolute Monocyte Count 0.33 10^3/uL (0.1-0.8); Basophils % 0.5; Eosinophils % 1.6; HGB 13.6 g/dL (11.2-15.7); Immature Grans % 0.2; Lymphocytes % 18.8; MCH 30.2 pg (27.0-33.0); MCV 88.7 fL (80-95); MPV 10.9 fL (8.0-11.0); Monocytes % 5.2; Neutrophils % 73.7; Nucleated RBC 0 %; Platelet Count 330 10^3/uL (130-400); RBC 4.51 10^6/uL (3.93-5.22); RDW 11.5 % (11.7-14.6); RDW-SD 37.2 fL; WBC 6.37 10^3/uL (4.4-10.8)
[2019-10-21 13:32] LABS: ALT 31 U/L (14-59); AST 17 U/L (15-37); Albumin 4.2 g/dL (3.4-5.0); Alkaline Phosphatase 100 U/L (46-116); Anion Gap 12.3 mmol/L (3-11); BUN 8 mg/dL (7-18); Bilirubin, Total 0.6 mg/dL (0.2-1.0); CO2 23.7 mmol/L (21.0-32.0); Calcium 9.4 mg/dL (8.5-10.1); Chloride 103 mmol/L (98-107); Glucose 112 mg/dL (74-106); Potassium 3.6 mmol/L (3.5-5.1); Sodium 139 mmol/L (136-145); Total Protein 8.1 g/dL (6.4-8.2)
--- NOTE | 2019-10-21 13:58 | DI.CT_ITS ---
EXAM: CT NECK W CLINICAL HISTORY: difficulty swallowing TECHNIQUE: COMPARISON: No exams were available for comparison FINDINGS: CT examination of the cervical region was performed with bolus infusion 100 cc of Omnipaque 350. Chary ges obtained through the upper pulmonary lobes are unremarkable. Aortic arch and major branches appe ar intact although portions left and right internal carotid artery are poorly visualized in their mid cervical extent secondary to artifact.. No cervical mass or adenopathy. The laryngeal structures a nd esophagus appear intact. Visualized portions of the brain, orbits, and temporal bone structures appear intact. Visualized par anasal sinuses and mastoid air cells are clear. Submandibular and parotid glands are unremarkable. IMPRESSION: Negative cervical CT.
[2019-10-21] MEDS: Omnipaque 350 MG/ML 100 ML BTL IJ (14:00)
[2019-10-21] MEDS: Normal Saline - Diluent 50 ML VIAL IV (14:00)
--- NOTE | 2019-10-21 15:06 | NUR.NOTE ---
Referrals faxed to [facility]NT and [facility] Neurology.Nursing Note:
[2019-10-23 17:07] LABS: SARS-CoV-2 RNA Undetected (Undetected); SARS-CoV-2 Specimen Source Nasopharynx
--- NOTE | 2019-10-24 09:39 | NUR.NOTE ---
Nursing Note: This nurse called pt at 0937 today to inform patient of COVID-19 results. Patient verbalized understanding. Pt aware to keep track of symptoms in the future.
== END 2019-10-21 15:28 | disposition home or self-care (01) ==
LOC: ER 15:20
PROVIDERS: Emergency Provider Emergency Medicine; PCP Nurse Practitioner
DX: F45.8 Other somatoform disorders (principal); F41.8 Other specified anxiety disorders; K21.9 Gastro-esophageal reflux disease without esophagitis; Z03.818 Encounter for observation for suspected exposure to other biological agents ruled out
CPT/HCPCS: 36415; 70491; 80053; 87880; 96360; 99285; U0003; 85025; 87081; 99284; J3490

== ENCOUNTER 2019-11-04 16:29 | Emergency (ER) | payer BC, MEDICAID, SELFPAY ==
[2019-11-04 16:31] VITALS: BP 153/88; PULSE 93; RESP 16; TEMP 36.7; O2SAT 97
--- NOTE | 2019-11-04 16:33 | W.ED.GENAD ---
Discharge Plan Disposition Patient Disposition: HOME Condition: Improving Discharge Details Chief Complaint: Sorethroat Clinical Impression: Acute sore throat Primary Care Provider: Rosi Hitchcock ED Provider: Anni Mccoy Home Meds and New Rx's Prescriptions: Continued ibuprofen 800 mg tablet 800 mg PO TID PRN (Reason: pain) Qty: 30 RF: 5 gabapentin 100 mg capsule 200 mg PO HS Qty: 180 RF: 2 bupropion HCl [Wellbutrin XL] 300 mg tablet extended release 24 hr 300 mg PO QAM Qty: 90 RF: 3 esomeprazole magnesium 40 mg capsule,delayed release(DR/EC) 40 mg PO DAILY Qty: 30 RF: 6 meclizine 25 mg tablet 25 mg PO TID PRN (Reason: dizziness) Qty: 90 RF: 1 levothyroxine 25 mcg tablet 25 mcg PO DAILY Qty: 90 RF: 3 senna 8.6 mg capsule 8.6 mg PO DAILY PRNRF: 0 Discharge Instructions Instructions: Pharyngitis (ED) Additional Instructions: Use Magic mouthwash as directed Keep all your follow-up appointments as scheduled Referrals: Rosi Hitchcock, TICKET ATTENDANT [Primary Care Provider] - Discharge Data Discharge Date/Time-TO BE ENTERED AT DEPARTURE: 11/04/19 18:46 Medical Decision Making given magic mouthwash with resolution of her symptoms. She is tolerating good p.o. her physical exam is benign. She is stable and ready for discharge to home. She will follow-up with ENT as previously scheduled. She was given the remainder of the Magic mouthwash bottle for home use. Medical Records Medical records reviewed: Yes I reviewed the patient's medical records. Lab Data Lab results reviewed: Yes I reviewed the patient's lab results. Lab results narrative: Reviewed labs and CT scan from previous visit HPI General Mode of arrival: ambulatory. Date/Time Provider Initiated Documentation: 11/04/19 16:29. Information obtained by: patient. HPI Narrative: Patient presents to the emergency department for evaluation of dry throat sensation of tongue swelling bilateral ear pain. She has had her symptoms for several weeks she has been evaluated in the emergency department had labs and a CT scan which showed no acute findings. She has been referred to ENT and does have an appointment on November 14. She contacted her mental health worker today stating that the symptoms are back and they referred her to the emergency department. She has had no fevers and the symptoms are unchanged from previous Related Data Home Medications Medication Instructions Recorded Confirmed ibuprofen 800 mg tablet 800 mg PO TID PRN #30 tab 01/05/19 11/04/19 bupropion HCl 300 mg 24 hr tablet, 300 mg PO QAM #90 tab 04/06/19 11/04/19 extended release levothyroxine 25 mcg tablet 25 mcg PO DAILY #90 tab 09/29/19 11/04/19 gabapentin 100 mg capsule 200 mg PO HS #180 cap 10/05/19 11/04/19 sennosides 8.6 mg capsule 8.6 mg PO DAILY PRN 10/27/19 11/04/19 esomeprazole magnesium 40 mg 40 mg PO DAILY #30 cap 11/01/19 11/04/19 capsule,delayed release meclizine 25 mg tablet 25 mg PO TID PRN #90 tab 11/01/19 11/04/19 Previous Rx's Medication Instructions Recorded ibuprofen 800 mg tablet 800 mg PO TID PRN #30 tab 01/05/19 bupropion HCl 300 mg 24 hr tablet, 300 mg PO QAM #90 tab 04/06/19 extended release levothyroxine 25 mcg tablet 25 mcg PO DAILY #90 tab 09/29/19 gabapentin 100 mg capsule 200 mg PO HS #180 cap 10/05/19 esomeprazole magnesium 40 mg 40 mg PO DAILY #30 cap 11/01/19 capsule,delayed release meclizine 25 mg tablet 25 mg PO TID PRN #90 tab 11/01/19 Allergies Allergy/AdvReac Type Severity Reaction Status Date / Time lamotrigine [From Lamictal] AdvReac Severe Psychosis Unverified 11/04/19 16:37 topiramate [From Topamax] AdvReac Severe Other (See Unverified 11/04/19 16:37 Comment) trazodone AdvReac Severe Headache Unverified 11/04/19 16:37 promethazine AdvReac Intermediate made her Verified 11/04/19 16:37 loopy, outof it Sulfa (Sulfonamide AdvReac Intermediate vomiting Verified 11/04/19 16:37 Antibiotics) General Stated Complaint: Sorethroat ELMA: 3 Review of Systems Constitutional Constitutional: Denies fever(s) and Denies poor appetite Eyes Eyes: Denies change in vision ENT Ears, Nose, Mouth, and Throat: Reports dysphagia, Reports dry mouth, Reports otalgia, Reports hoarseness, Reports sore throat, Reports throat swelling and Reports tongue swelling Cardiovascular Cardiovascular: Denies dyspnea Respiratory Respiratory: Denies cough and Denies dyspnea Gastrointestinal Gastrointestinal: Reports dysphagia, Denies diarrhea and Denies vomiting Musculoskeletal Musculoskeletal: Denies myalgias Allergic/Immunologic Allergic/Immunologic: Reports throat swelling and Reports tongue swelling [facility] Medical History (Updated 11/04/19 @ 18:15 by Anni Mccoy NP) Abnormal uterine bleeding (Acute) EMBx with disordered proliferative endometrium. 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 Mood disorder (Acute) INDER (obstructive sleep apnea) (Chronic) Pt states she does not use device, sleeps propped up Personal history of cervical dysplasia (Chronic 12/08/15) 2009 [facility] III - LEEP Rx Surgical History Cervical Procedure (~2008) LEEP History of elbow surgery (Acute) R elbow Ligation of fallopian tube 2002 or 2003 Family History Father Unknown family medical history Mother Unknown family medical history Alcohol abuse Drug abuse Son Depression treated with Vitamin D Son Depression Social History Smoking/Tobacco Use Status: Never Alcohol Intake: never Drug use: Never Substance use type: does not use Household members: significant other Housing: house Number of Children: 2 Communication Needs: Corrective Lenses Do you need help understanding health information?: Rarely 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 Pets and animals: Yes Pets and animals: dog(s) Current gender identity: female What type of physical activity do you participate in: none Seatbelt use: always Helmet use: Yes Firearms in home: Yes Firearms unloaded and locked: Yes Do you feel safe at home: Yes Do you feel safe in your relationship?: Yes Female Reproductive History Menstrual control method: permanent sterilization History History 3 Para 2 Hx # Term Pregnancies Multiple births Hx # Pregnancies Ectopic pregnancies AB induced Hx Number of Living Children AB spontaneous Exam Const General: cooperative, healthy appearing and comfortable Nutritional Appearance: average body habitus Orientation: alert, awake and oriented x3 HENMT Head: normal to inspection, normocephalic and atraumatic Mouth: oral mucosae normal Throat: posterior oropharynx normal, tonsils normal and uvula midline Resp Effort & Inspection: normal respiratory effort Auscultation: clear to auscultation bilaterally Cardio Rate: regular rate Rhythm: regular rhythm GI Inspection: normal to inspection Palpation: soft Auscultation: normal bowel sounds Skin General skin exam: no rashes or lesions noted Extrem General: normal to inspection and full ROM
[2019-11-04] MEDS: Magic Mouthwash 119 ML BTL 10 ML PO (17:08)
--- NOTE | 2019-11-04 17:57 | NUR.NOTE ---
1745 Popsicle to patient. Nursing Note:
== END 2019-11-04 18:46 | disposition home or self-care (01) ==
PROVIDERS: Emergency Provider Nurse Practitioner Acute Care; PCP Nurse Practitioner
DX: J02.9 Acute pharyngitis, unspecified (principal); H92.03 Otalgia, bilateral
CPT/HCPCS: 99283

== ENCOUNTER 2019-11-19 03:48 | Outpatient (CLI) | payer BC, MEDICAID, SELFPAY ==
[2019-11-26 15:33] LABS: SS-B (La) Ab, IgG 3.1 Units (<20.0)
[2019-11-26 16:03] LABS: SS-A Antibody 2.7 Units (<20.0)
== END 2019-11-19 04:08 ==
PROVIDERS: PCP Nurse Practitioner; Visit Provider Otolaryngology Otolaryngology/Facial Plastic Surgery
DX: K11.7 Disturbances of salivary secretion (principal)
CPT/HCPCS: 36415; 86235

== ENCOUNTER 2019-12-07 02:44 | Outpatient (CLI) | payer BC, MEDICAID, SELFPAY ==
[2019-12-07 18:05] LABS: TSH (W/Ref FT4) 1.69 uIU/mL (0.36-3.74)
== END 2019-12-07 03:04 ==
PROVIDERS: Student in an Organized Health Care Education/Training Program; PCP Nurse Practitioner; Visit Provider Internal Medicine
DX: E03.9 Hypothyroidism, unspecified (principal); R63.4 Abnormal weight loss; R79.89 Other specified abnormal findings of blood chemistry
CPT/HCPCS: 36415; 84443

== ENCOUNTER 2020-01-10 01:48 | Outpatient (CLI) | payer BC, MEDICAID, SELFPAY ==
[2020-01-13 16:57] LABS: 25-Hydroxy D Total 36 ng/mL; 25-Hydroxy D2 <4.0 ng/mL; 25-Hydroxy D3 36 ng/mL
== END 2020-01-10 02:08 ==
PROVIDERS: PCP Nurse Practitioner; Visit Provider Nurse Practitioner Psychiatric/Mental Health
DX: F32.9 Major depressive disorder, single episode, unspecified (principal)
CPT/HCPCS: 36415; 82306

== ENCOUNTER 2020-02-02 12:06 | Outpatient (REF) | payer BC, MEDICAID, SELFPAY ==
[2020-02-02 22:22] LABS: Abs Immature Grans 0.01 10^3/uL (0.0-0.06); Absolute Basophil Count 0.03 10^3/uL (0.0-0.2); Absolute Eosinophil Count 0.07 10^3/uL (0.0-0.7); Absolute Lymphocyte Count 1.09 10^3/uL (1.2-3.4); Absolute Monocyte Count 0.24 10^3/uL (0.1-0.8); Absolute Neutrophil Count 3.48 10^3/uL (1.2-6.7); Basophils % 0.6; Eosinophils % 1.4; HCT 39.6 % (36.0-46.0); HGB 13.1 g/dL (11.2-15.7); Immature Grans % 0.2; Lymphocytes % 22.2; MCH 29.9 pg (27.0-33.0); MCHC 33.1 % (32.0-36.0); MCV 90.4 fL (80-95); MPV 12.5 fL (8.0-11.0); Monocytes % 4.9; Neutrophils % 70.7; Nucleated RBC 0 %; Platelet Count 270 10^3/uL (130-400); RBC 4.38 10^6/uL (3.93-5.22); RDW 11.7 % (11.7-14.6); RDW-SD 38.7 fL; WBC 4.92 10^3/uL (4.4-10.8)
[2020-02-02 22:55] LABS: ALT 26 U/L (14-59); AST 16 U/L (15-37); Albumin 4.1 g/dL (3.4-5.0); Alkaline Phosphatase 89 U/L (46-116); Anion Gap 10.3 mmol/L (3-11); BUN 10 mg/dL (7-18); Bilirubin, Total 0.6 mg/dL (0.2-1.0); C-Reactive Protein 0.17 mg/dL (0.0-0.3); CO2 23.7 mmol/L (21.0-32.0); CREATININE 0.87 mg/dL (0.55-1.02); Calcium 9.1 mg/dL (8.5-10.1); Chloride 106 mmol/L (98-107); Creatine Kinase 55 U/L (26-192); Glucose 95 mg/dL (74-106); Potassium 4.1 mmol/L (3.5-5.1); Sodium 140 mmol/L (136-145); TSH (W/Ref FT4) 1.62 uIU/mL (0.36-3.74)
[2020-02-02 23:36] LABS: Ferritin 131 ng/mL (8-252); Vitamin B12 345 pg/mL (193-986)
[2020-02-03 04:43] LABS: Vitamin D 25 Total 28.2 ng/ml (30-100)
[2020-02-17 12:48] LABS: ANA Interpretation 1.1 (Negative)
== END 2020-02-02 12:26 ==
LOC: NCHCN 12:06
PROVIDERS: PCP Nurse Practitioner
DX: R22.1 Localized swelling, mass and lump, neck (principal); E03.9 Hypothyroidism, unspecified; K21.9 Gastro-esophageal reflux disease without esophagitis
CPT/HCPCS: 80053; 82306; 82550; 82607; 82728; 84443; 85025; 86038; 86140

== ENCOUNTER 2020-02-14 09:44 | Outpatient (CLI) | payer BC, MEDICAID, SELFPAY ==
[2020-02-14 19:44] LABS: COVID-19 RT-PCR UVMMC Result Negative (Negative)
== END 2020-02-14 10:04 ==
PROVIDERS: PCP Nurse Practitioner; Visit Provider Nurse Practitioner Family
DX: J06.9 Acute upper respiratory infection, unspecified (principal); J02.9 Acute pharyngitis, unspecified; R09.81 Nasal congestion
CPT/HCPCS: U0003

== ENCOUNTER 2020-02-16 15:56 | Outpatient (REF) | payer BC, MEDICAID, SELFPAY ==
[2020-02-19 09:17] LABS: COVID-19 RT-PCR UVMMC Result Negative (Negative)
== END 2020-02-16 16:16 ==
LOC: NCHCN 15:56
PROVIDERS: PCP Nurse Practitioner; Visit Provider Physician Assistant
DX: Z20.828 Contact with and (suspected) exposure to other viral communicable diseases (principal)
CPT/HCPCS: U0003

== ENCOUNTER 2020-02-22 00:01 | Emergency (ER) | payer BC, MEDICAID, SELFPAY ==
[2020-02-22 00:08] VITALS: BP 115/81; PULSE 86; RESP 14; TEMP 36.4; O2SAT 98
--- NOTE | 2020-02-22 00:15 | DI.CT_ITS ---
EXAM: CT THORAX CTA CLINICAL HISTORY: chest pain radiating to the back. TECHNIQUE: Imaging Protocol: Axial CT angiography was performed with multi-slice acquisition and mu lti-planar and/or 3D reconstructions. CONTRAST MATERIAL: Intravenous: Omnipaque 350 Contrast volume:structured data in ml COMPARISON: No exams were available for comparison FINDINGS: CT angiography of the chest was performed with intravenous infusion of 100 cc of Omnipaque 350. The lungs are clear. No pleural effusion. Tracheobronchial tree appears intact. No evidence of pulmonary embolic disease. Thoracic aorta is of normal diameter, no thoracic aortic an eurysm or dissection, major branch vessels appear intact. No mediastinal or hilar adenopathy. Images obtained through the upper abdomen show unremarkable appearance of the visualized portions of the spleen, pancreas, adrenals, and kidneys. There appears to be mild hepatic steatosis. IMPRESSION: Negative CT angiogram of the chest. No evidence of pulmonary embolic disease. RADIATION DOSE DELIVERED: 528.54mGy.cm Total DLP 528.54mGy.cm Total DLP DATA REPOSITORY: All CT scans at this facility are submitted to the National Radiology Data Registry (NRDR) Dose Index Registry (DIR) with the [employer] ([employer]). RADIATION OPTIMIZATION: All CT scans at this facility use at least one of these dose optimization te chniques: automated exposure control; mA and/or kV adjustment per patient size (includes targeted exa ms where dose is matched to clinical indication); or iterative reconstruction.
--- NOTE | 2020-02-22 00:15 | DI.CT_ITS ---
EXAM: CT HEAD WO CLINICAL HISTORY: headache. TECHNIQUE: Imaging Protocol: Axial computed tomography images with coronal and sagittal reformatted images were created and reviewed COMPARISON: No exams were available for comparison FINDINGS: The ventricular system is normal in appearance. No evidence of acute intracranial hemorrhage, mass effect, or midline shift. The orbital structures are unremarkable. The temporal bone structures appear intact. Calvarium: Normal. Visualized Paranasal sinuses/Mastoids: Clear. IMPRESSION: Normal cranial CT. RADIATION DOSE DELIVERED: 661.12mGy.cm Total DLP 661.12mGy.cm Total DLP DATA REPOSITORY: All CT scans at this facility are submitted to the National Radiology Data Registry (NRDR) Dose Index Registry (DIR) with the [employer] ([employer]). RADIATION OPTIMIZATION: All CT scans at this facility use at least one of these dose optimization te chniques: automated exposure control; mA and/or kV adjustment per patient size (includes targeted exa ms where dose is matched to clinical indication); or iterative reconstruction.
--- NOTE | 2020-02-22 00:15 | RT.EKG_ITS ---
APPROVED REPORT Exam: Resting ECG Patient Location: E HR:78 bpm ECG Measurements Heart Rate 78 AXIS WV 148 P 28 QRSd 101 QRS 44 QT 384 T 28 QTc 438 Conclusion Sinus rhythm...normal P axis, V-rate 60- 99 Low voltage, precordial leads...precordial leads <1.0mV
--- NOTE | 2020-02-22 00:17 | ED.GENADUL_ITS ---
Discharge Plan Disposition Patient Disposition: HOME Condition: Stable Discharge Details Clinical Impression: Headache, Paresthesia, Chest pain Primary Care Provider: Rosi Hitchcock ED Provider: Steve Bacon Home Meds and New Rx's Prescriptions: New metoclopramide HCl [Reglan] 10 mg tablet 10 mg PO Q6H PRNQty: 30 RF: 0 Continued ibuprofen 800 mg tablet 800 mg PO TID PRN (Reason: pain) Qty: 30 RF: 5 meclizine 25 mg tablet 25 mg PO TID PRN (Reason: dizziness) Qty: 90 RF: 1 esomeprazole magnesium 40 mg capsule,delayed release(DR/EC) 40 mg PO BID RF: 0 levothyroxine 25 mcg tablet 25 mcg PO DAILY Qty: 90 RF: 3 Hold Instructions: Home Medication placed on hold at Doctor's office senna 8.6 mg capsule 8.6 mg PO DAILY PRNRF: 0 gabapentin 100 mg capsule 100 mg PO TID RF: 0 Discharge Instructions Additional Instructions: your blood work, cat scan of your head and chest did not show any concerning findings follow up with your primary care provider within 1 week especially if symptoms continue you can take 1000mg tylenol every 6 hours for pain as needed if you feel more ill, have severe worsening pain or difficulty breathing return to the emergency department Medical Decision Making 44 yo female with hx of anxiety, gerd, hypothyroidism, mood disorder, inder, prior hysterectomy, comes in with complaints of 3 days of constant burning sensation in upper back moving to the chest and feels her lungs are full of fluids. She also notes a numb sensation in her right arm throughout the entire arm. Denies fevers or cough states when she lays on her right side she has no numbness but as soon as she changes position it comes on. Denies any recent immobilization or travel. She also notes a mild headache not the worst of her life and not thunderclap on description. Localizes it to the front of the head. Has stable gait, normal sensation and motor of the extremities with full rom and CN II-XII are intact, NIH of 0. Given her symptoms will evaluate for possible sdh. History not consistent with sah and has no findings to suggest cva. Given the chest and back pain will also evaluate for acs and dissection with ecg, troponin and ct. No evidence of dvt, no hypoxia or tachycardia or evidence of dvt so doubt PE. Could be anxiety induced symptoms given her son tested positive for covid over a week ago (she has had two negative tests since per patient) but will evaluate for more serious pathology. She denies ivdu and has no fevers or deficits on suresh ro exam so doubt entities such as SEA labs and imaging unremarkable, she is now resting comfortably without headache and feels improved with stable neuro exam. Given 3 days of symptoms do not feel repeat troponin indicated. Will d/c and have her f/u with pcp and return precautions given Differential Diagnosis Differential Diagnosis: electrolyte abnormality, dissection, sdh Medical Records Medical records reviewed: Yes I reviewed the patient's medical records. Imaging Data Radiologic Study: Attestation: I personally reviewed and interpreted this imaging study as follows: Imaging: CT Scan Radiologist's impression: no acute findings ct head Radiologic Study #2: Attestation: I personally reviewed and interpreted this imaging study as follows: Imaging: CT Scan Radiologist's impression: no acute findings cta thorax Lab Data Lab results reviewed: Yes I reviewed the patient's lab results. ECG Data Attestation: I personally reviewed and interpreted this ECG (s) as follows: Prior ECG tracings: not available for review Interpretation: sinus rhythm, rate of 78, pr 148, qtc 438 HPI General Mode of arrival: ambulatory . Date/Time Provider Initiated Documentation: 02/22/20 00:03 . Limitations to Documentation: no limitations . Information obtained by: patient . History of Present Illness 44 year old F presents to the emergency department with the chief complaint of bad burning in upper back, described as moderate, Patient started experiencing this day(s) (3) and it has been constant. No relieving factors improve symptom(s), No exacerbating factors reported . Patient did receive the following treatments prior to arrival, none Related Data Home Medications Medication Instructions Recorded Confirmed ibuprofen 800 mg tablet 800 mg PO TID PRN #30 tab 01/05/19 02/22/20 levothyroxine 25 mcg tablet 25 mcg PO DAILY #90 tab 09/29/19 01/19/20 sennosides 8.6 mg capsule 8.6 mg PO DAILY PRN 10/27/19 02/22/20 meclizine 25 mg tablet 25 mg PO TID PRN #90 tab 11/01/19 02/22/20 esomeprazole magnesium 40 mg 40 mg PO BID cap 12/01/19 02/22/20 capsule,delayed release gabapentin 100 mg capsule 100 mg PO TID 02/11/20 02/22/20 metoclopramide HCl [Reglan] 10 mg PO Q6H PRN #30 tab 02/22/20 Previous Rx's Medication Instructions Recorded ibuprofen 800 mg tablet 800 mg PO TID PRN #30 tab 01/05/19 levothyroxine 25 mcg tablet 25 mcg PO DAILY #90 tab 09/29/19 meclizine 25 mg tablet 25 mg PO TID PRN #90 tab 11/01/19 metoclopramide HCl [Reglan] 10 mg PO Q6H PRN #30 tab 02/22/20 Allergies Allergy/AdvReac Type Severity Reaction Status Date / Time lamotrigine [From Lamictal] AdvReac Severe Psychosis Unverified 02/22/20 00:15 topiramate [From Topamax] AdvReac Severe Other (See Unverified 02/22/20 00:15 Comment) trazodone AdvReac Severe Headache Unverified 02/22/20 00:15 promethazine AdvReac Intermediate made her Verified 02/22/20 00:15 loopy, outof it Sulfa (Sulfonamide AdvReac Intermediate vomiting Verified 02/22/20 00:15 Antibiotics) Lobster Allergy Uncoded 02/22/20 00:15 antidepressants AdvReac Uncoded 02/22/20 00:15 General Stated Complaint: GenMedical ELMA: 3 Review of Systems All systems reviewed & are unremarkable except as noted in HPI and below Constitutional Constitutional: Denies chills, Denies fever(s) and Denies weakness Respiratory Respiratory: Denies cough Gastrointestinal Gastrointestinal: Denies abdominal pain, Denies nausea and Denies vomiting Genitourinary Genitourinary: Denies dysuria Integumentary/Breasts Skin/Breast: Denies rash Neurologic Neurologic: Denies weakness Psychiatric Psychiatric: Denies depression [facility] Medical History (Updated 02/22/20 @ 01:30 by Steve Bacon MD) Abnormal uterine bleeding EMBx with disordered proliferative endometrium. 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 Mood disorder INDER (obstructive sleep apnea) Pt states she does not use device, sleeps propped up Personal history of cervical dysplasia (12/08/15) 2008 [facility] III - LEEP Rx Surgical History (Updated 01/05/20 @ 15:42 by Thais Marti RN) Cervical Procedure (~2008) LEEP H/O esophagogastroduodenoscopy 12/20/19 Dr Phil Reynaga 2 cm hiatal hernia History of elbow surgery R elbow Ligation of fallopian tube 2002 or 2003 Family History Father Unknown family medical history Mother Unknown family medical history Alcohol abuse Drug abuse Son Depression treated with Vitamin D Son Depression Social History Smoking/Tobacco Use Status: Never Smoking risk assessment performed?: Yes Alcohol Intake: never Drug use: Never Substance use type: does not use Household members: significant other Housing: house Number of Children: 2 Communication Needs: Corrective Lenses Do you need help understanding health information?: Rarely 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 Pets and animals: Yes Current gender identity: female What type of physical activity do you participate in: none Seatbelt use: always Helmet use: Yes Firearms in home: Yes Firearms unloaded and locked: Yes Do you feel safe at home: Yes Do you feel safe in your relationship?: Yes Female Reproductive History Menstrual control method: permanent sterilization History History 3 Para 2 Hx # Term Pregnancies Multiple births Hx # Pregnancies Ectopic pregnancies AB induced Hx Number of Living Children AB spontaneous Exam Const General: no acute distress Orientation: alert HENMT Head: normal to inspection Ears: external ears normal General nose exam: external nose normal Mouth: moist mucous membranes Eyes General: appearance normal, both eyes and all related structures Neck Neck: normal visual inspection Chest Chest: no tenderness Resp Effort & Inspection: normal respiratory effort and able to speak in complete sentences Cardio Rate: regular rate GI Palpation: soft and nontender Skin General skin exam: no rashes or lesions noted Neuro General: patient alert and patient oriented x3 Extrem General: normal to inspection Psych Mental Status: mental status grossly normal Course Vital Signs Vital signs: Vital Signs Temperature 36.4 C L 02/22/20 00:08 Pulse 86 02/22/20 00:08 Respiratory Rate 14 02/22/20 00:08 Blood Pressure 115/81 02/22/20 00:08 Pulse Oximetry 98 02/22/20 00:08 Temperature 36.4 C L 02/22/20 00:08 Temperature Source Skin 02/22/20 00:08 Pulse 86 02/22/20 00:08 Respiratory Rate 14 02/22/20 00:08 Respiratory Effort Non-Labored 02/22/20 00:15 Blood Pressure 115/81 02/22/20 00:08 Blood Pressure Position Sitting 02/22/20 00:08 Pulse Oximetry 98 02/22/20 00:08 Oxygen Delivery Method Room Air 02/22/20 00:08 Oxygen Flow Rate 0 02/22/20 00:08
[2020-02-22] MEDS: Metoclopramide 10 MG/2 ML VIAL IVP (00:23)
[2020-02-22 00:26] VITALS: RESP 14
[2020-02-22] MEDS: Omnipaque 350 MG/ML 100 ML BTL IJ (00:29)
[2020-02-22 00:34] LABS: Abs Immature Grans 0.02 10^3/uL (0.0-0.06); Absolute Basophil Count 0.03 10^3/uL (0.0-0.2); Absolute Eosinophil Count 0.19 10^3/uL (0.0-0.7); Absolute Lymphocyte Count 2.07 10^3/uL (1.2-3.4); Absolute Monocyte Count 0.47 10^3/uL (0.1-0.8); Absolute Neutrophil Count 5.91 10^3/uL (1.2-6.7); Basophils % 0.3; Eosinophils % 2.2; HCT 41.1 % (36.0-46.0); HGB 13.5 g/dL (11.2-15.7); Immature Grans % 0.2; Lymphocytes % 23.8; MCH 29.7 pg (27.0-33.0); MCHC 32.8 % (32.0-36.0); MCV 90.5 fL (80-95); MPV 11.6 fL (8.0-11.0); Monocytes % 5.4; Neutrophils % 68.1; Nucleated RBC 0 %; Platelet Count 253 10^3/uL (130-400); RBC 4.54 10^6/uL (3.93-5.22); RDW 11.7 % (11.7-14.6); RDW-SD 38.7 fL; WBC 8.69 10^3/uL (4.4-10.8)
[2020-02-22 00:56] LABS: ALT 28 U/L (14-59); AST 12 U/L (15-37); Albumin 4.3 g/dL (3.4-5.0); Alkaline Phosphatase 96 U/L (46-116); Anion Gap 10.6 mmol/L (3-11); BUN 14 mg/dL (7-18); Bilirubin, Total 0.6 mg/dL (0.2-1.0); CO2 24.4 mmol/L (21.0-32.0); CREATININE 1.12 mg/dL (0.55-1.02); Calcium 9.6 mg/dL (8.5-10.1); Chloride 103 mmol/L (98-107); Estimated GFR 52.61 (mL/min/1.73m2); Glucose 107 mg/dL (74-106); Magnesium 1.9 mg/dL (1.8-2.4); Potassium 3.2 mmol/L (3.5-5.1); Sodium 138 mmol/L (136-145); TSH (W/Ref FT4) 4.26 uIU/mL (0.36-3.74); Total Protein 7.8 g/dL (6.4-8.2); Troponin I < 0.05 ng/mL (<0.06)
[2020-02-22] MEDS: Normal Saline - Diluent 50 ML VIAL IV (01:09)
[2020-02-22] MEDS: Normal Saline Flush 10 ML SYR IVP (01:09)
[2020-02-22 01:12] LABS: FREE T4 0.96 ng/dL (0.76-1.46)
--- NOTE | 2020-02-22 01:13 | DI.VRAD_ITS ---
PROCEDURE INFORMATION: Exam: CT Head Without Contrast Exam date and time: 02/22/2020 12:16 AM Age: 44 years old Clinical indication: Pain; Headache not specified; Patient HX: Headache for days feels like a tight band around head TECHNIQUE: Imaging protocol: Computed tomography of the head without contrast. Radiation optimization: All CT scans at this facility use at least one of these dose optimization techniques: automated exposure control; mA and/or kV adjustment per patient size (includes targeted exams where dose is matched to clinical indication); or iterative reconstruction. COMPARISON: No relevant prior studies available. FINDINGS: Brain: Normal. No hemorrhage. Unremarkable white matter. No mass effect. Cerebral ventricles: No ventriculomegaly. Bones/joints: Unremarkable. No acute fracture. Paranasal sinuses: Visualized sinuses are unremarkable. No fluid levels. Mastoid air cells: Visualized mastoid air cells are well aerated. Soft tissues: Unremarkable. IMPRESSION: No acute intracranial abnormality. Dictated and Authenticated by: Jv Flores MD. Ordering:FRANKLIN Wilson MD
--- NOTE | 2020-02-22 01:21 | DI.VRAD_ITS ---
PROCEDURE INFORMATION: Exam: CT Angiography Chest With Contrast Exam date and time: 02/22/2020 12:57 AM Age: 44 years old Clinical indication: Patient HX: Chest pain radiating into back TECHNIQUE: Imaging protocol: Computed tomographic angiography of the chest with intravenous contrast. 3D rendering (Not supervised by radiologist): MIP and/or 3D reconstructed images were created by the technologist. Radiation optimization: All CT scans at this facility use at least one of these dose optimization techniques: automated exposure control; mA and/or kV adjustment per patient size (includes targeted exams where dose is matched to clinical indication); or iterative reconstruction. Contrast material: OMNIPAQUE 350; Contrast volume: 100 ml; Contrast route: INTRAVENOUS (IV); COMPARISON: No relevant prior studies available. FINDINGS: Pulmonary arteries: No pulmonary emboli. Aorta: No aortic aneurysm. No aortic dissection. Lungs: No consolidation. No masses. Pleural space: Minimal calcified pleural plaque at the right base versus calcified granuloma. No pneumothorax. No pleural effusion. Heart: No cardiomegaly. No pericardial effusion. Lymph nodes: No enlarged lymph nodes. Bones/joints: Unremarkable. No acute fracture. Soft tissues: Unremarkable. Fatty infiltration of the liver IMPRESSION: No pulmonary emboli observed Dictated and Authenticated by: Jv Flores MD. Ordering:FRANKLIN Wilson MD
[2020-02-22 01:49] VITALS: BP 116/65; PULSE 55; RESP 16; TEMP 36.6; O2SAT 99
== END 2020-02-22 01:50 | disposition home or self-care (01) ==
PROVIDERS: Emergency Provider Emergency Medicine; PCP Nurse Practitioner
DX: R07.89 Other chest pain (principal); R20.2 Paresthesia of skin; R51.9 Headache, unspecified; K21.9 Gastro-esophageal reflux disease without esophagitis
CPT/HCPCS: 36415; 71275; 80053; 93005; 96374; 99285; 70450; 83735; 84439; 84443; 84484; 85025; 93010; J2765; J3490

== ENCOUNTER 2020-02-23 18:17 | Outpatient (REF) | payer BC, MEDICAID, SELFPAY ==
[2020-02-25 09:59] LABS: Lyme Ab w Rflx to Lyme Confirm Negative (Negative)
== END 2020-02-23 18:37 ==
LOC: NCHCN 18:17
PROVIDERS: PCP Nurse Practitioner; Visit Provider Family Medicine
DX: M79.10 Myalgia, unspecified site (principal); F33.2 Major depressive disorder, recurrent severe without psychotic features
CPT/HCPCS: 86618

== ENCOUNTER 2020-03-09 00:34 | Outpatient (CLI) | payer BC, MEDICAID, SELFPAY ==
--- NOTE | 2020-03-09 | DI.US_ITS ---
EXAM: US SOFT TISSUE HEAD OR NECK CLINICAL HISTORY: NECK MASS, R22.1. TECHNIQUE: Ultrasound was performed using standard protocol. COMPARISON: No exams were available for comparison FINDINGS: Sonographic assessment utilizing grayscale and color Doppler imaging was performed and targeted to th e area of clinical concern. There is a 1.7 x 0.6 x 0.9 cm hypoechoic nodule in the superior right neck corresponding to the palpa ble abnormality. There is a hyperechoic notch. The findings are consistent with a benign-appearing ly mph node. There is a 0.9 x 0.7 x 0.9 cm cystic structure in the superior midline neck above the hyoid bone. There is an isoechoic solid nodule in the isthmus of the thyroid gland measuring 0.9 x 0.5 x 0 .7 cm. There are no associated echogenic foci.. IMPRESSION: 1. The palpable abnormality in the neck corresponds to a benign-appearing 1.7 cm lymph node. 2. 0.9 cm cyst in the midline of the neck superior to the hyoid bone. The finding is nonspecific. A C T scan of the neck may be obtained for further evaluation. 3. 0.9 cm isoechoic thyroid nodule. This corresponds to a TI-RADS level 3 nodule. DATA REPOSITORY:
== END 2020-03-09 00:54 ==
PROVIDERS: PCP Family Medicine
DX: R22.1 Localized swelling, mass and lump, neck (principal); E04.1 Nontoxic single thyroid nodule
CPT/HCPCS: 76536

== ENCOUNTER 2020-03-20 01:36 | Outpatient (CLI) | payer BC, MEDICAID, SELFPAY ==
--- NOTE | 2020-03-20 08:30 | DI.US_ITS ---
EXAM: US RENAL CLINICAL HISTORY: Reevaluate kidney stones,NEPHROLITHIASIS,N20.0 TECHNIQUE: Ultrasound of both kidneys performed using standard protocol. COMPARISON: US US SOFT TISSUE HEAD OR NECK from 03/09/2020 FINDINGS: RIGHT KIDNEY: Measures 10.8 cm in length. No cysts evident. Normal cortical thickness and corticomedullary differen tiation .No solid masses There is a nonobstructive 3 millimeter calculus in the upper pole region. LEFT KIDNEY: Measures 11.8 cm in length. No cysts evident. Normal cortical thickness and corticomedullary differe ntiaion. No solids masses. No intrarenal calculi nor hydonephrosis. Urinary bladder: Prevoid volume was 180 cc and postvoid volume is 12 cc. No obvious mass seen in the bladder both ureterovesical jets were identified. IMPRESSION: 1. There is a solitary nonobstructive 3 millimeter calculus noted in right kidney mid-upper pole. N o other focal findings in either kidney. 2. Postvoid volume of the urinary bladder is 12 cc. There is no obvious bladder mass. DATA REPOSITORY:
== END 2020-03-20 01:56 ==
PROVIDERS: PCP Nurse Practitioner Family; Visit Provider Obstetrics & Gynecology
DX: N20.0 Calculus of kidney (principal)
CPT/HCPCS: 76770

== ENCOUNTER 2020-03-20 03:58 | Outpatient (CLI) | payer BC, MEDICAID, SELFPAY ==
[2020-03-20 16:52] LABS: FREE T4 1.03 ng/dL (0.76-1.46)
[2020-03-20 21:03] LABS: Rheumatoid Factor <8.6 IU/mL (<12.0)
[2020-03-20 21:53] LABS: T3,Free 2.9 pg/mL (2.8-5.3)
== END 2020-03-20 04:18 ==
PROVIDERS: PCP Nurse Practitioner Family; Visit Provider Nurse Practitioner Family
DX: E03.9 Hypothyroidism, unspecified (principal); M25.59 Pain in other specified joint
CPT/HCPCS: 36415; 84439; 84481; 86431

== ENCOUNTER 2020-04-21 02:19 | Outpatient (CLI) | payer BC, MEDICAID, SELFPAY ==
--- NOTE | 2020-04-21 | DI.RAD_ITS ---
EXAM: XR HIP LT COMPLETE AP PELVIS CLINICAL HISTORY: LT HIP PAIN, M25.552,PROGRESSIVE. TECHNIQUE: 2D digital imaging was performed. COMPARISON: No previous for comparison. FINDINGS: The hips are well maintained. The sacroiliac joints and symphysis pubis are unremarkable the bones a re intact and normally mineralized. The soft tissues are unremarkable. IMPRESSION: Unremarkable radiographs of the left hip. Unremarkable radiographs of the pelvis DATA REPOSITORY: RADIATION DOSE DELIVERED:
== END 2020-04-21 02:20 | disposition home or self-care (01) ==
LOC: DI 02:19
PROVIDERS: PCP Nurse Practitioner Family; Visit Provider Internal Medicine
DX: M25.552 Pain in left hip (principal)
CPT/HCPCS: 73502

== ENCOUNTER 2020-05-15 09:17 | Emergency (ER) | payer BC, MEDICAID, SELFPAY ==
[2020-05-15 09:21] VITALS: BP 124/77; PULSE 90; RESP 18; TEMP 36.5; O2SAT 99
--- NOTE | 2020-05-15 10:45 | RT.EKG_ITS ---
APPROVED REPORT Exam: Resting ECG Patient Location: E HR:52 bpm ECG Measurements Heart Rate 52 AXIS NV 140 P 34 QRSd 100 QRS 48 QT 459 T 33 QTc 427 Conclusion Sinus bradycardia...rate< 60 Low voltage, precordial leads...precordial leads <1.0mV sinus bradycardia at 52, nl axis, QTc 427, no acute ischemic changes, non-diagnostic EKG
[2020-05-15 11:17] LABS: Bilirubin Negative (Negative); Blood Negative (Negative); Clarity Clear (Clear); Glucose Negative (Negative); Ketones Negative (Negative); Leukocyte Esterase Negative (Negative); Nitrite Negative (Negative); Urobilinogen 0.2 EU/dL (Up TO 0.2); pH 7.5 (5-8)
[2020-05-15] MEDS: Normal Saline 1,000 ML 1000 ML IV (11:22)
[2020-05-15] MEDS: Ondansetron 4 MG/2 ML VIAL IVP (11:22)
[2020-05-15] MEDS: LORazepam 2 MG/ML VIAL 0.5 MG IVP (11:23)
[2020-05-15 11:34] LABS: Abs Immature Grans 0.01 10^3/uL (0.0-0.06); Absolute Basophil Count 0.03 10^3/uL (0.0-0.2); Absolute Eosinophil Count 0.03 10^3/uL (0.0-0.7); Absolute Lymphocyte Count 1.32 10^3/uL (1.2-3.4); Absolute Monocyte Count 0.27 10^3/uL (0.1-0.8); Absolute Neutrophil Count 5.36 10^3/uL (1.2-6.7); Basophils % 0.4; Eosinophils % 0.4; HCT 37.9 % (36.0-46.0); HGB 12.6 g/dL (11.2-15.7); Immature Grans % 0.1; Lymphocytes % 18.8; MCH 30.3 pg (27.0-33.0); MCHC 33.2 % (32.0-36.0); MCV 91.1 fL (80-95); MPV 11.1 fL (8.0-11.0); Monocytes % 3.8; Neutrophils % 76.5; Nucleated RBC 0 %; Platelet Count 290 10^3/uL (130-400); RBC 4.16 10^6/uL (3.93-5.22); RDW 11.5 % (11.7-14.6); RDW-SD 38.7 fL; WBC 7.02 10^3/uL (4.4-10.8)
--- NOTE | 2020-05-15 11:44 | W.ED.GENAD ---
Discharge Plan Disposition Patient Disposition: HOME Condition: Stable Discharge Details Clinical Impression: Diarrhea, Nausea Primary Care Provider: Akua Ding ED Provider: Sintia Flanagan Home Meds and New Rx's Prescriptions: New ondansetron 4 mg tablet,disintegrating 4 mg PO BID-TID PRNQty: 8 RF: 0 Continued ibuprofen 800 mg tablet 800 mg PO TID PRN (Reason: pain) Qty: 30 RF: 5 meclizine 25 mg tablet 25 mg PO TID PRN (Reason: dizziness) Qty: 90 RF: 1 gabapentin 100 mg capsule 100 mg PO TID RF: 0 fluticasone propionate 50 mcg/actuation spray,suspension 50 mcg INTRANASAL PRN PRNRF: 0 ag-vuj-KW-Fq-Vi-zcvwbcr-lutein 0.4-162-18 mg Tablet 1 tab PO DAILY RF: 0 Discontinued senna 8.6 mg capsule 8.6 mg PO DAILY PRNRF: 0 duloxetine [Cymbalta] 20 mg Capsule,Delayed Release(Dr/Ec) 20 mg PO DAILY RF: 0 Discharge Instructions Instructions: Acute Nausea and Vomiting (ED), Acute Diarrhea (ED) Additional Instructions: Please return immediately to the emergency department if you develop any new or worsening symptoms, if your condition does not improve as expected, or if you become otherwise concerned. It is extremely important that you call soon as possible to make an appointment to be seen in follow-up for this visit by your primary care doctor. Referrals: Akua Ding [Primary Care Provider] - Discharge Data Discharge Date/Time-TO BE ENTERED AT DEPARTURE: 05/15/20 12:49 Medical Decision Making Chiquis Winn is a 44 y/o woman who presented to the emergency department with watery diarrhea that begin two nights ago after taking cymbalta for the first time, s/p cholcystectomy 1.5 weeks ago. On exam Pt is well and non-toxic appearing. Benign abd exam. Concern for mild dehydration, metabolic/lyte derangement, infectious diarrhea, other. Doubt acute emergent intra-abdominal process/post-operative complication. Exam/hx at this time is not c/w acute coronary syndrome, sepsis, acute aortic pathology. Plan for IVF hydration, zofran, screening labs, UA, stool studies. EKG for QT eval. Pt reports some anxiety, is amenable to ativan. Labs reviewed, non-diagnostic, no leukocytosis, no elevated AG or major electrolyte disturbance. Pt has passed PO challenge, taking fluids easily. Pt has had no diarrhea while in ED, unable to produce stool sample. Further work-up not indcated at this time. Plan for outpt f/u, Pt feels improved and feels comfortable going home at this time. I had a lengthy discussion with Patient regarding return to emergency department precautions, home care, and importance of outpatient follow-up. Pt verbalizes understanding of the plan and is amenable. Patient discharged to home with clear plan for outpatient follow-up. All questions were answered. Disposition decision was made weighing the risks and benefits of hospitalization versus outpatient treatment, the risk for further decompensation, and the patient's wishes. Medical Records Medical records reviewed: Yes I reviewed the patient's medical records. Lab Data Lab results reviewed: Yes I reviewed the patient's lab results. Labs: Laboratory Tests Range/Units 05/15/20 05/15/20 05/15/20 11:11 11:26 11:26 WBC (4.4-10.8) 10^3/uL 7.02 RBC (3.93-5.22) 10^6/uL 4.16 Hgb (11.2-15.7) g/dL 12.6 Hct (36.0-46.0) % 37.9 MCV (80-95) fL 91.1 MCH (27.0-33.0) pg 30.3 MCHC (32.0-36.0) % 33.2 RDW (11.7-14.6) % 11.5 L Plt Count (130-400) 10^3/uL 290 MPV (8.0-11.0) fL 11.1 H Immature Gran % 0.1 Neutrophils % 76.5 Lymphocytes % 18.8 Monocytes % 3.8 Eosinophils % 0.4 Basophils % 0.4 Nucleated RBC % % 0 Absolute Neutrophils (1.2-6.7) 10^3/uL 5.36 Absolute Lymphocytes (1.2-3.4) 10^3/uL 1.32 Absolute Monocytes (0.1-0.8) 10^3/uL 0.27 Absolute Eosinophils (0.0-0.7) 10^3/uL 0.03 Absolute Basophils (0.0-0.2) 10^3/uL 0.03 Sodium (136-145) mmol/L 140 Potassium (3.5-5.1) mmol/L 3.7 Chloride (98-107) mmol/L 104 Carbon Dioxide (21.0-32.0) mmol/L 26.1 Anion Gap (3-11) mmol/L 9.9 BUN (7-18) mg/dL 8 Creatinine (0.55-1.02) mg/dL 0.9 Estimated GFR/1.73 m2 (mL/min/1.73m2) >= 60.00 Glucose (74-106) mg/dL 96 Calcium (8.5-10.1) mg/dL 9.2 Magnesium (1.8-2.4) mg/dL 2.0 Total Bilirubin (0.2-1.0) mg/dL 0.8 AST (15-37) U/L 14 L ALT (14-59) U/L 31 Alkaline Phosphatase (46-116) U/L 87 Total Protein (6.4-8.2) g/dL 7.4 Albumin (3.4-5.0) g/dL 3.8 Urine Color (Yellow) Yellow Urine Clarity (Clear) Clear Urine pH (5-8) 7.5 Ur Specific [place] (1.005-1.025) 1.020 Urine Protein (Negative) mg/dL Negative Urine Ketones (Negative) mg/dL Negative Urine Blood (Negative) Negative Urine Nitrite (Negative) Negative Urine Bilirubin (Negative) Negative Urine Urobilinogen (Up TO 0.2) EU/dL 0.2 Ur Leukocyte Esterase (Negative) Negative Urine Glucose (Negative) mg/dL Negative ECG Data Attestation: I personally reviewed and interpreted this ECG (s) as follows: Interpretation: EKG shows sinus bradycardia at 52, nl axis, QTc 427, no acute ischemic changes, non-diagnostic EKG HPI General Mode of arrival: ambulatory. Date/Time Provider Initiated Documentation: 05/15/20 09:41. Limitations to Documentation: no limitations. Information obtained by: patient, RN notes reviewed and old records reviewed. HPI Narrative: Chiquis Winn is a 39-year-old woman with a history of GERD, Schatzki ring, hypothyroidism, anxiety, s/p hysterectomy, s/p cholecystectomy presenting to the emergency department with diarrhea. Pt reports that she has fibromyalgia being treated with gabapentin, which has not been as effective at controlling her symptoms recently. She reports that her PCP started her on Cymbalta for this. She took the dose first of Cymbalta on 05/13/20 at 5:30 at night. She reports that at approximately 11:00 that night she developed diarrhea. She reports that she has had watery diarrhea every time that she eats or drinks anything since onset. She has been drinking plenty of fluids. She has nausea and dry heaving but no vomiting. She reports that she has had mild stomach cramping that is briefly relieved with bowel movement and then returns. She has taken no further doses of cymbalta. No other med changes. She denies fevers, seen of breath, cough, any other pain, weakness, numbness,or rash. Patient reported that she had cholecystectomy performed at [facility] approximately 1.5 weeks ago, has not had complications postoperatively to this point. Related Data Home Medications Medication Instructions Recorded Confirmed ibuprofen 800 mg tablet 800 mg PO TID PRN #30 tab 01/05/19 05/15/20 meclizine 25 mg tablet 25 mg PO TID PRN #90 tab 11/01/19 05/15/20 gabapentin 100 mg capsule 100 mg PO TID 02/11/20 05/15/20 fluticasone propionate 50 mcg INTRANASAL PRN PRN 05/15/20 05/15/20 ub-xjl-CW-Df-Wn-bkwadhc-lutein 1 tab PO DAILY 05/15/20 05/15/20 ondansetron 4 mg PO BID-TID PRN #8 tab 05/15/20 Previous Rx's Medication Instructions Recorded ibuprofen 800 mg tablet 800 mg PO TID PRN #30 tab 01/05/19 meclizine 25 mg tablet 25 mg PO TID PRN #90 tab 11/01/19 ondansetron 4 mg PO BID-TID PRN #8 tab 05/15/20 Allergies Allergy/AdvReac Type Severity Reaction Status Date / Time lamotrigine [From Lamictal] AdvReac Severe Psychosis Unverified 05/15/20 09:26 topiramate [From Topamax] AdvReac Severe Other (See Unverified 05/15/20 09:26 Comment) trazodone AdvReac Severe Headache Unverified 05/15/20 09:26 promethazine AdvReac Intermediate made her Verified 05/15/20 09:26 loopy, outof it Sulfa (Sulfonamide AdvReac Intermediate vomiting Verified 05/15/20 09:26 Antibiotics) Lobster Allergy Uncoded 05/15/20 09:26 antidepressants AdvReac Uncoded 05/15/20 09:26 General Stated Complaint: Nausea/Vomit/Diar ELMA: 3 Review of Systems Narrative: Constitutional: denies fevers Eyes: denies eye pain ENT: denies ear pain, dental pain, sore throat Cardiovascular: denies chest pain Respiratory: denies SOB, cough GI: denies vomiting, reports intermittent abdominal cramping, diarrhea : denies flank pain MSK: denies back pain, neck pain, arthralgias, myalgias Skin: denies rash Neuro: denies headaches, numbness, weakness PFS Medical History Abnormal uterine bleeding EMBx with disordered proliferative endometrium. 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 Mood disorder INDER (obstructive sleep apnea) Pt states she does not use device, sleeps propped up Personal history of cervical dysplasia (12/08/15) 2009 [facility] III - LEEP Rx Surgical History (Updated 01/05/20 @ 15:42 by Thais Marti RN) Cervical Procedure (~2008) LEEP H/O esophagogastroduodenoscopy 12/20/19 Dr Phil Reynaga 2 cm hiatal hernia History of elbow surgery R elbow Ligation of fallopian tube 2002 or 2003 Family History Father Unknown family medical history Mother Unknown family medical history Alcohol abuse Drug abuse Son Depression treated with Vitamin D Son Depression Social History Smoking/Tobacco Use Status: Never Smoking risk assessment performed?: Yes Alcohol Intake: never Drug use: Never Substance use type: does not use Household members: significant other Housing: house Number of Children: 2 Communication Needs: Corrective Lenses Do you need help understanding health information?: Rarely 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 Pets and animals: Yes Current gender identity: female What type of physical activity do you participate in: none Seatbelt use: always Helmet use: Yes Firearms in home: Yes Firearms unloaded and locked: Yes Do you feel safe at home: Yes Do you feel safe in your relationship?: Yes Female Reproductive History Menstrual control method: permanent sterilization History History 3 Para 2 Hx # Term Pregnancies Multiple births Hx # Pregnancies Ectopic pregnancies AB induced Hx Number of Living Children AB spontaneous Exam Narrative Exam Narrative: Constitutional: well and tko-corxt-yqsnovnop, pleasant, somewhat anxious, conversing normally HENT: head atraumatic/normocephalic/normal inspection, mucous membranes moist Eyes: conjunctiva normal, sclera normal, pupils 3mm b/l Neck: no stridor, normal ROM, trachea midline Resp: normal work of breathing, speaking in full sentences Cardio: normal rate, normal rhythm GI: abdomen soft, non-tender, non-distended, surgical wounds healing well without drainage or erythema Back: normal inspection, no rash Skin: warm, dry, normal color, no rash Neuro: alert, not altered, grossly non-focal, normal tone Ext: no edema, no posterior calf TTP Psych: normal mood, normal affect, normal behavior Course Vital Signs Vital signs: Vital Signs Temperature 36.5 C 05/15/20 09:21 Pulse 90 05/15/20 09:21 Respiratory Rate 18 05/15/20 09:21 Blood Pressure 124/77 05/15/20 09:21 Pulse Oximetry 99 05/15/20 09:21 Temperature 36.5 C 05/15/20 09:21 Temperature Source Skin 05/15/20 09:21 Pulse 90 05/15/20 09:21 Respiratory Rate 18 05/15/20 09:21 Respiratory Effort Non-Labored 05/15/20 09:24 Blood Pressure 124/77 05/15/20 09:21 Blood Pressure Position Sitting 05/15/20 09:21 Pulse Oximetry 99 05/15/20 09:21 Oxygen Delivery Method Room Air 05/15/20 09:21 Oxygen Flow Rate 0 05/15/20 09:21 Pain Level 0 05/15/20 09:21 Lab/Test Results Lab/Test Results: Laboratory Tests Range/Units 05/15/20 05/15/20 11:11 11:26 WBC (4.4-10.8) 10^3/uL 7.02 RBC (3.93-5.22) 10^6/uL 4.16 Hgb (11.2-15.7) g/dL 12.6 Hct (36.0-46.0) % 37.9 MCV (80-95) fL 91.1 MCH (27.0-33.0) pg 30.3 MCHC (32.0-36.0) % 33.2 RDW (11.7-14.6) % 11.5 L Plt Count (130-400) 10^3/uL 290 MPV (8.0-11.0) fL 11.1 H Immature Gran % 0.1 Neutrophils % 76.5 Lymphocytes % 18.8 Monocytes % 3.8 Eosinophils % 0.4 Basophils % 0.4 Nucleated RBC % % 0 Absolute Neutrophils (1.2-6.7) 10^3/uL 5.36 Absolute Lymphocytes (1.2-3.4) 10^3/uL 1.32 Absolute Monocytes (0.1-0.8) 10^3/uL 0.27 Absolute Eosinophils (0.0-0.7) 10^3/uL 0.03 Absolute Basophils (0.0-0.2) 10^3/uL 0.03 Urine Color (Yellow) Yellow Urine Clarity (Clear) Clear Urine pH (5-8) 7.5 Ur Specific [place] (1.005-1.025) 1.020 Urine Protein (Negative) mg/dL Negative Urine Ketones (Negative) mg/dL Negative Urine Blood (Negative) Negative Urine Nitrite (Negative) Negative Urine Bilirubin (Negative) Negative Urine Urobilinogen (Up TO 0.2) EU/dL 0.2 Ur Leukocyte Esterase (Negative) Negative Urine Glucose (Negative) mg/dL Negative
[2020-05-15 11:46] LABS: ALT 31 U/L (14-59); AST 14 U/L (15-37); Albumin 3.8 g/dL (3.4-5.0); Alkaline Phosphatase 87 U/L (46-116); Anion Gap 9.9 mmol/L (3-11); BUN 8 mg/dL (7-18); Bilirubin, Total 0.8 mg/dL (0.2-1.0); CO2 26.1 mmol/L (21.0-32.0); CREATININE 0.9 mg/dL (0.55-1.02); Calcium 9.2 mg/dL (8.5-10.1); Chloride 104 mmol/L (98-107); Glucose 96 mg/dL (74-106); Potassium 3.7 mmol/L (3.5-5.1); Sodium 140 mmol/L (136-145); Total Protein 7.4 g/dL (6.4-8.2)
[2020-05-15 12:31] VITALS: BP 107/55; PULSE 66; RESP 16; TEMP 36.5; O2SAT 100
[2020-05-15 12:39] VITALS: BP 107/55; PULSE 66; RESP 16; TEMP 36.5; O2SAT 100
== END 2020-05-15 12:49 | disposition home or self-care (01) ==
PROVIDERS: Emergency Provider Student in an Organized Health Care Education/Training Program; PCP Nurse Practitioner Family
DX: R11.0 Nausea (principal); R19.7 Diarrhea, unspecified
CPT/HCPCS: 36415; 80053; 93005; 96361; 96374; 96375; 99284; 81003; 83735; 85025; 93010; 99285; J2060; J2405

== ENCOUNTER 2020-06-21 17:48 | Outpatient (REF) | payer BC, MEDICAID, SELFPAY ==
[2020-06-28 10:00] LABS: Chlamydia Result Negative (Negative); GC Result Negative (Negative)
== END 2020-06-21 17:49 | disposition home or self-care (01) ==
LOC: LBN 17:48
PROVIDERS: PCP Nurse Practitioner Family; Visit Provider Nurse Practitioner Women's Health
DX: Z11.3 Encounter for screening for infections with a predominantly sexual mode of transmission (principal)
CPT/HCPCS: 87491; 87591

== ENCOUNTER 2020-09-04 18:52 | Outpatient (REF) | payer BC, MEDICAID, SELFPAY | END 2020-09-04 18:53 | disposition home or self-care (01) | LOC: LBN 18:52 | PROVIDERS: PCP Nurse Practitioner Family; Visit Provider Nurse Practitioner Family | DX: R30.0 Dysuria (principal) | CPT/HCPCS: 87077; 87086; 87186 ==

== ENCOUNTER 2020-09-21 18:24 | Outpatient (REF) | payer BC, MEDICAID, SELFPAY | END 2020-09-21 18:25 | disposition home or self-care (01) | LOC: LBN 18:24 | PROVIDERS: PCP Nurse Practitioner Family; Visit Provider Nurse Practitioner Family | DX: R30.0 Dysuria (principal) | CPT/HCPCS: 87086 ==

== ENCOUNTER 2021-01-29 13:45 | Outpatient (REF) | payer BC, MEDICAID, SELFPAY ==
[2021-01-31 16:42] LABS: COVID-19 RT-PCR UVMMC Result Positive (Negative)
== END 2021-01-29 13:46 | disposition home or self-care (01) ==
LOC: LBN 13:45
PROVIDERS: PCP Nurse Practitioner Family; Visit Provider Nurse Practitioner Family
DX: Z20.822 Contact with and (suspected) exposure to COVID-19 (principal); J06.9 Acute upper respiratory infection, unspecified
CPT/HCPCS: U0003

== ENCOUNTER 2021-04-10 02:41 | Outpatient (CLI) | payer BC, MEDICAID, SELFPAY ==
--- NOTE | 2021-04-10 07:45 | DI.MAMMO_ITS ---
Exam(s) MAMMO SCREENING EXAM: MAMMO SCREENING CLINICAL HISTORY: screening,Z12.39 TECHNIQUE: Bilateral full field digital CC and MLO mammographic images were obtained with 3D tomosyn thesis and utilizing computer aided detection (CAD). COMPARISON: Available for comparison. FINDINGS: Masses/Architectural Distortion: There are bilateral well-circumscribed nodules. No suspicious julieta s or areas of architectural distortion are identified. Microcalcifications: No suspicious pleomorphic-type are seen. Skin Thickening/Nipple Retraction: None. IMPRESSION: 1. No significant interval change with no specific features of malignancy noted. 2. Unless there is more urgent need, screening mammography is recommended, as per [place] [employer] guidelines. BI-RADS Category 2 - Benign Findings Breast Density - Category B - Scattered areas of fibroglandular density Breast density category C or D implies that the patient has dense breast tissue. Dense breast tissue is very common and is not abnormal but dense breast tissue can make it harder to find cancer on a ma mmogram. Also, dense breast tissue may increase their breast cancer risk. This information about the result of the mammogram report was provided to the patient to raise their awareness. Use this report when you speak with the patient about their risks for breast cancer, which includes their family hist ory. At that time, you may recommend for more screening tests (Ultrasound or MRI) as they might be us eful based on their risk. A negative radiographic report should not delay biopsy if a dominant or clinically suspicious mass is present. Up to ten percent of cancers are not identified on mammography. A negative report may reinforce clinical impression. Adenosis and dense breasts may obscure an underlying neoplasm. False positive reports average 6 to 10%. Patient will receive a letter notifying them of these results.
== END 2021-04-10 03:01 ==
PROVIDERS: PCP Nurse Practitioner Family; Visit Provider Nurse Practitioner Family
DX: Z12.31 Encounter for screening mammogram for malignant neoplasm of breast (principal)
CPT/HCPCS: 77063; 77067

== ENCOUNTER 2021-05-28 17:29 | Outpatient (REF) | payer BC, MEDICAID, SELFPAY ==
[2021-05-30 11:47] LABS: COVID-19 RT-PCR UVMMC Result Negative (Negative)
== END 2021-05-28 17:30 | disposition home or self-care (01) ==
LOC: LBN 17:29
PROVIDERS: PCP Nurse Practitioner Family; Visit Provider Physician Assistant
DX: J02.9 Acute pharyngitis, unspecified (principal); Z20.822 Contact with and (suspected) exposure to COVID-19
CPT/HCPCS: U0003; 87070

== ENCOUNTER 2021-11-17 14:40 | Emergency (ER) | payer BC, MEDICAID, SELFPAY ==
[2021-11-17 14:55] VITALS: BP 111/78; PULSE 81; RESP 14; TEMP 36.6; O2SAT 99
--- NOTE | 2021-11-17 15:13 | ED.GENADUL_ITS ---
Discharge Plan Disposition Patient Disposition: HOME Condition: Improving Discharge Details Clinical Impression: Acute bronchitis with bronchospasm Primary Care Provider: Akua Ding ED Provider: Akash Shaffer Home Meds and New Rx's Prescriptions: New prednisone 20 mg tablet 40 mg PO DAILY 5 Days Qty: 10 0RF benzonatate 200 mg capsule 200 mg PO BID-TID PRN (Reason: cough) Qty: 14 0RF amoxicillin 500 mg capsule 500 mg PO TID 9 Days Qty: 27 0RF Continued ibuprofen 800 mg tablet 800 mg PO TID PRN (Reason: pain) Qty: 30 5RF metronidazole 500 mg tablet 500 mg PO BID Qty: 14 0RF albuterol sulfate [Proventil HFA] 90 mcg/actuation HFA aerosol inhaler 2 puff inhalation Q6H PRN (Reason: shortness of breath or wheezing) Qty: 8.5 0RF jj-vsm-LY-Yz-Wp-lysmszj-lutein 0.4-162-18 mg Tablet 1 tab PO DAILY nystatin 500,000 unit tablet 1 tab PO BID Label Comments: TAKE TWO TABLETS BY MOUTH TWICE A DAY WITH MEALS gabapentin 100 mg capsule 100 mg PO TID azithromycin 500 mg tablet 500 mg PO DAILY Label Comments: TAKE ONE TABLET BY MOUTH EVERY DAY AFTERA MEAL Discontinued cefuroxime axetil 500 mg tablet 500 mg PO DAILY Discharge Instructions Instructions: Acute Bronchitis (ED), Reactive Airways Disease (ED) Additional Instructions: Please take the prednisone as prescribed. You may take once daily as 40 mg or split to 20 mg in the morning and 20 mg at night. Tessalon as needed for cough. Take amoxicillin as prescribed until finished. You may benefit from elrx-iiu-hxrfvon probiotic to help stabilize your gut elmer. This may be taken once daily while on the antibiotics. Return to the ER for any acute concern. Medical Decision Making 46-year-old female asthmatic presents with nearly 3 weeks of persistent daily cough. Says she is felt congestion and some production of sputum at times. She is increased use of her inhaler. She has not felt short of breath nor chest pain. 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 She is immunized against COVID and states a home test was negative. Patient is oxygenating normally she does have a cough noted on exam with some end expiratory wheeze bilaterally. Patient referred for chest x-ray which shows no acute disease. Most consistent with acute bronchitis and bronchospasm. We will treat with a short burst of prednisone as well as amoxicillin to cover typical pathogens while she will continue he chronically prescribed azithromycin. She is stable and appropriate for trial of outpatient management. Tessalon offered for antitussive control. HPI General Mode of arrival: ambulatory . Date/Time Provider Initiated Documentation: 11/17/21 14:51 . Limitations to Documentation: no limitations . Information obtained by: patient . History of Present Illness 46 year old F presents to the emergency department with the chief complaint of Persistent cough over 2 to 3 wks, described as moderate, and is localized to the chest. Patient reports no radiation. Patient started experiencing this week(s) No relieving factors improve symptom(s), No exacerbating factors reported . Patient notes other (Intermittent production of sputum); denies fever/chills, shortness of breath and syncope. Patient did receive the following treatments prior to arrival, other (Takes daily azithromycin for chronic Lyme) Related Data Home Medications Medication Instructions Recorded Confirmed ibuprofen 800 mg tablet 800 mg PO TID PRN pain #30 tabs 01/05/19 10/02/21 xrpogihp-pof-MN 0.4 mg-calcium 162 1 tab PO DAILY 05/15/20 10/02/21 mg-iron 18 gg-mlquuwt-rscefk tablet metronidazole 500 mg tablet 500 mg PO BID #14 tabs 03/27/21 10/02/21 albuterol sulfate 90 mcg/actuation 2 puff inhalation Q6H PRN 05/28/21 11/17/21 aerosol inhaler (Proventil HFA) shortness of breath or wheezing #8.5 grams amoxicillin 500 mg capsule 500 mg PO TID 9 days #27 caps 11/17/21 azithromycin 500 mg tablet 500 mg PO DAILY 11/17/21 11/17/21 benzonatate 200 mg capsule 200 mg PO BID-TID PRN cough #14 11/17/21 caps gabapentin 100 mg capsule 100 mg PO TID 11/17/21 11/17/21 nystatin 500,000 unit tablet 1 tab PO BID 11/17/21 11/17/21 prednisone 20 mg tablet 40 mg PO DAILY 5 days #10 tabs 11/17/21 Previous Rx's Medication Instructions Recorded ibuprofen 800 mg tablet 800 mg PO TID PRN pain #30 tabs 01/05/19 metronidazole 500 mg tablet 500 mg PO BID #14 tabs 03/27/21 albuterol sulfate 90 mcg/actuation 2 puff inhalation Q6H PRN 05/28/21 aerosol inhaler (Proventil HFA) shortness of breath or wheezing #8.5 grams amoxicillin 500 mg capsule 500 mg PO TID 9 days #27 caps 11/17/21 benzonatate 200 mg capsule 200 mg PO BID-TID PRN cough #14 11/17/21 caps prednisone 20 mg tablet 40 mg PO DAILY 5 days #10 tabs 11/17/21 Allergies Allergy/AdvReac Type Severity Reaction Status Date / Time lamotrigine [From Lamictal] AdvReac Severe Psychosis Verified 11/17/21 14:58 topiramate [From Topamax] AdvReac Severe Other (See Verified 11/17/21 14:58 Comment) trazodone AdvReac Severe Headache Verified 11/17/21 14:58 promethazine AdvReac Intermediate made her Verified 11/17/21 14:58 loopy, outof it Sulfa (Sulfonamide AdvReac Intermediate vomiting Verified 11/17/21 14:58 Antibiotics) Lobster Allergy Uncoded 11/17/21 14:58 antidepressants AdvReac Uncoded 11/17/21 14:58 General Stated Complaint: GenMedical ELMA: 3 Review of Systems Narrative: GEN: awake, alert, oriented 3. Pleasant, well groomed, interactive. HEAD: Normocephalic, atraumatic EYES: PERRL, EOMI NECK: Full ROM, no WARREN, no menigismus CHEST/RESP: Nontender, cough noted with end expiratory wheeze when coughing, clear to auscultation 1 breathing comfortably CARDIOVASCULAR: RRR, no murmur, rub lori. 2+ Rad pulse bilateral ABDOMEN: Soft, nontender, no mass. +Bowel sounds EXT: Full ROM, no edema, no rash Neuro: Grossly normal neurologic exam, conversant, interactive. Psych: Speech fluent, thoughts congruent, affect normal PFSH All Active Problems (Updated 11/17/21 @ 16:21 by Akash Shaffer MD) Acute bronchitis with bronchospasm (Acute) 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 (Acute) Referred otalgia of both ears (Acute) Imbalance (Acute) Sensorineural hearing loss, unilateral, right ear, with unrestricted hearing on the contralateral side (Acute) Perimenopause (Acute) Vaginal discharge (Acute) Dyspareunia (Acute) Vertigo (Acute) Anxiety and depression (Chronic) Irritable bowel syndrome with diarrhea (Acute) 06/25/17 [facility] gastro 10/27/19 [facility] Medical History (Updated 11/17/21 @ 16:21 by Akash Shaffer MD) Aortic valve regurgitation (03/19/13) ECHO 12/18/2001 Anbx Prophylaxis Chronic GERD Diarrhea Dysphagia, pharyngeal phase 11/15/19 Dr Short - barium swallow ordered Gait instability Hiatal hernia 12/20/19 2 cm GI [facility] Hypothyroidism Low back pain Lyme disease Major depressive disorder, recurrent severe without psychotic features Medication reaction Possibly 2' lamotrigine & topiramate ? Migraine headache without aura Nephrolithiasis INDER (obstructive sleep apnea) Pt states she does not use device, sleeps propped up Paresthesias Personal history of cervical dysplasia (12/08/15) 2008 [facility] III - LEEP Rx Schatzki's ring 12/2019 dilation of, [facility] Urinary retention Weight gain Surgical History Cervical Procedure (~2008) LEEP H/O esophagogastroduodenoscopy 12/20/19 Dr Phil Reynaga 2 cm hiatal hernia History of elbow surgery R elbow History of laparoscopic-assisted vaginal hysterectomy Ligation of fallopian tube 2002 or 2003 S/P laparoscopic assisted vaginal hysterectomy ([facility]) Status post laparoscopic hysterectomy Family History Father Unknown family medical history Mother Unknown family medical history Alcohol abuse Drug abuse Depression Son Depression treated with Vitamin D Son Depression Social History Smoking/Tobacco Use Status: Never Smoking risk assessment performed?: Yes Alcohol Intake: never Drug use: Never Substance use type: does not use Household members: significant other Housing: house Number of Children: 2 Communication Needs: Corrective Lenses Do you need help understanding health information?: Rarely 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 Pets and animals: Yes Current gender identity: female What type of physical activity do you participate in: none Seatbelt use: always Helmet use: Yes Firearms in home: Yes Firearms unloaded and locked: Yes Do you feel safe at home: Yes Do you feel safe in your relationship?: Yes Female Reproductive History Menstrual control method: permanent sterilization History History 3 Para 2 Hx # Term Pregnancies Multiple births Hx # Pregnancies Ectopic pregnancies AB induced Hx Number of Living Children AB spontaneous Course Vital Signs Vital signs: Vital Signs Temperature 36.6 C 11/17/21 14:55 Pulse 81 11/17/21 14:55 Respiratory Rate 14 11/17/21 14:55 Blood Pressure 111/78 11/17/21 14:55 Pulse Oximetry 99 11/17/21 14:55 Temperature 36.6 C 11/17/21 14:55 Temperature Source Tympanic 11/17/21 14:55 Pulse 81 11/17/21 14:55 Respiratory Rate 14 11/17/21 14:55 Respiratory Effort Non-Labored 11/17/21 15:00 Respiratory Depth Normal 11/17/21 15:00 Respiratory Pattern Normal 11/17/21 15:00 Blood Pressure 111/78 11/17/21 14:55 Blood Pressure Position Sitting 11/17/21 14:55 Pulse Oximetry 99 11/17/21 14:55 Oxygen Delivery Method Room Air 11/17/21 14:55 Oxygen Flow Rate 0 11/17/21 14:55 Pain Level 0 11/17/21 14:55
--- NOTE | 2021-11-17 15:51 | DI.RAD_ITS ---
Exam(s) XR CHEST 2V PA LATERAL EXAM: XR CHEST 2V PA LATERAL CLINICAL HISTORY: persistent cough TECHNIQUE: 2D digital imaging was performed. COMPARISON: CR XR HIP LT COMPLETE AP PELVIS from 04/21/2020 FINDINGS: MEDIASTINUM: Normal. HEART: Normal. PULMONARY VASCULATURE: Normal. LUNGS: Clear. PLEURAL SPACE: No pleural effusion or pneumothorax. BONE:Unremarkable for age. IMPRESSION: No acute abnormality. DATA REPOSITORY: RADIATION DOSE DELIVERED:
--- NOTE | 2021-11-17 16:16 | DI.VRAD_ITS ---
PROCEDURE INFORMATION: Exam: XR Chest Exam date and time: 11/17/2021 3:49 PM Age: 46 years old Clinical indication: Cough TECHNIQUE: Imaging protocol: Radiologic exam of the chest. Views: 2 views. COMPARISON: CT THORAX CTA 02/22/2020 12:55 AM FINDINGS: Lungs: Unremarkable. No consolidation. Pleural spaces: Unremarkable. No pleural effusion. No pneumothorax. Heart/Mediastinum: Unremarkable. No cardiomegaly. Bones/joints: Unremarkable. IMPRESSION: No acute findings. Dictated and Authenticated by: Richmond Obrien MD. Ordering:HERMES Bustos MD
[2021-11-17] MEDS: Amoxicillin 500 MG CAP PO (16:32)
[2021-11-17] MEDS: predniSONE 20 MG TAB 40 MG PO (16:32)
[2021-11-17 17:35] LABS: Source Nasal/Nares
[2021-11-17 17:38] LABS: COVID-19 PCR Negative (Negative)
== END 2021-11-17 16:31 | disposition home or self-care (01) ==
PROVIDERS: Emergency Provider Emergency Medicine; PCP Nurse Practitioner Family
DX: J20.9 Acute bronchitis, unspecified (principal); J45.909 Unspecified asthma, uncomplicated; Z20.822 Contact with and (suspected) exposure to COVID-19
CPT/HCPCS: 87635; 99283; U0003; 71046; 99284; J7512

== ENCOUNTER 2021-12-17 18:42 | Outpatient (REF) | payer BC, MEDICAID, SELFPAY ==
[2021-12-17 21:13] LABS: Bilirubin Negative (Negative); Blood Trace-intact (Negative); Clarity Clear (Clear); Glucose Negative (Negative); Ketones Negative (Negative); Leukocyte Esterase Negative (Negative); Nitrite Negative (Negative); Specific Gravity >= 1.030 (1.005-1.025); Urobilinogen 0.2 EU/dL (Up TO 0.2)
[2021-12-17 21:39] LABS: Bacteria Many HPF (Negative); Crystals Negative HPF (Negative); Epithelial Cells Many HPF (Negative); RBC 0-2 HPF (0-2); WBC 0-2 HPF (0-5)
[2021-12-17 21:40] LABS: C & S Indicated? No/Sq. Contamination; Mucus Heavy (Negative)
== END 2021-12-17 18:43 | disposition home or self-care (01) ==
LOC: LBN 18:42
PROVIDERS: PCP Nurse Practitioner Family; Visit Provider Nurse Practitioner Family
DX: N89.8 Other specified noninflammatory disorders of vagina (principal); R39.89 Other symptoms and signs involving the genitourinary system
CPT/HCPCS: 81003; 81015; 87480; 87510; 87660

== ENCOUNTER 2022-03-09 07:31 | Emergency (ER) | payer BC, MEDICAID, SELFPAY ==
[2022-03-09 07:34] VITALS: BP 113/79; PULSE 82; RESP 17; TEMP 37.1; O2SAT 97
--- NOTE | 2022-03-09 08:37 | W.ED.GENAD ---
Discharge Plan Disposition Patient Disposition: Home Condition: Stable Discharge Details Clinical Impression: Gastritis, Bladder wall thickening Primary Care Provider: Akua Ding ED Provider: Toni Flanagan Home Meds and New Rx's Prescriptions: New amoxicillin-pot clavulanate 875-125 mg tablet 1 tab PO BID Qty: 14 0RF ondansetron 4 mg tablet,disintegrating 4 mg PO Q8H PRN (Reason: nausea and vomiting) Qty: 10 0RF famotidine [Pepcid] 20 mg tablet 20 mg PO BID Qty: 60 0RF Continued mupirocin 2 % ointment 1 applic topical TID Qty: 15 0RF albuterol sulfate [Proventil HFA] 90 mcg/actuation HFA aerosol inhaler 2 puff inhalation Q6H PRN (Reason: shortness of breath or wheezing) Qty: 8.5 0RF vm-[id number]-Tu-jgdsguc-lutein 0.4-162-18 mg Tablet 1 tab PO DAILY gabapentin 100 mg capsule 100 mg PO TID benzonatate 200 mg capsule 200 mg PO BID-TID PRN (Reason: cough) Qty: 14 0RF ascorbic acid (vitamin C) 500 mg Tablet,Chewable 500 mg PO TID esomeprazole magnesium [Nexium] 20 mg Capsule,Delayed Release(Dr/Ec) 20 mg PO DAILY Discharge Instructions Additional Instructions: You should perform bowel rest today and tomorrow as discussed. Maintain Clear liquid diet today. You may advance slowly to rice and clear liquids tomorrow. Advance slowly daily thereafter. CT scan of your abdomen pelvis revealed thickened bladder wall. A urine culture is pending at time of discharge. Please be sure to follow-up with your primary care physician. If urine culture is nondiagnostic, additional outpatient diagnostic testing may be necessary. Please follow-up with gastroenterology or general surgery regarding your abdominal discomfort. Additional outpatient diagnostic testing including endoscopy is recommended. Please contact your primary care physician to arrange follow-up. Return to the ER immediately for any worsening or new concerning symptoms. Discharge Data Discharge Date/Time-TO BE ENTERED AT DEPARTURE: 03/09/22 12:10 Medical Decision Making 841??46-year-old female with history of chronic GERD, Schatzki's ring, gastritis, here with persistent abdominal pain over the past week. Patient is tender in her epigastric, right upper quadrant and left upper quadrant with no peritoneal findings. Suspect gastritis, consider gastric ulcer and pancreatitis. Will obtain screening labs and give IV fluid bolus, Pepcid IV and Mylanta. 1053 --CT abdomen pelvis was interpreted by radiology: Diffuse bladder wall thickening, may be due to incomplete distention. Clinical correlation with acute cystitis recommended. Patient's reassessed and still having symptoms. Will give lidocaine orally and ondansetron 4 mg IV. I reviewed all results with the patient and provided copy of CT imaging interpretation. Patient notes increased urinary frequency this morning and some difficulty urinating. Given bladder wall thickness and the symptoms I am concerned about the potential for UTI. Urinalysis was reviewed and not consistent with UTI. I will send urine culture. Patient elects to initiate treatment with antibiotic while awaiting urine culture -- she notes that she has been told by her chronic Lyme disease specialist that she has some ongoing inflammation in comprehensive lab work that is of unclear etiology and has in recent past been told she has had inconclusive urinalysis by PCP. I will give dose of ceftriaxone IV to avoid stomach at this point given her gastritis. -- Patient reassessed and still having some discomfort in epigastrum. I suggested additional treatment including acetaminophen IV and patient declined and requested discharge. Usual and customary discharge instructions reviewed the patient including strict instructions return immediately for any worsening or new concerning symptoms. She understands importance of timely follow-up. I will requested care management assist in arranging timely follow-up. Lab Data Lab results reviewed: Yes I reviewed the patient's lab results. Labs: 03/09/22 09:35 Urine - Voided Urine Culture - Pending Laboratory Tests Range/Units 03/09/22 03/09/22 03/09/22 07:43 07:53 07:53 WBC (4.4-10.8) 10^3/uL 5.71 RBC (3.93-5.22) 10^6/uL 4.65 Hgb (11.2-15.7) g/dL 14.3 Hct (36.0-46.0) % 42.5 MCV (80-95) fL 91 MCH (27.0-33.0) pg 30.8 MCHC (32.0-36.0) % 33.6 RDW (11.7-14.6) % 11.3 L Plt Count (130-400) 10^3/uL 277 MPV (8.0-11.0) fL 11.4 H Immature Gran % 0.4 Neutrophils % 76.6 Lymphocytes % 16.5 Monocytes % 4.4 Eosinophils % 1.4 Basophils % 0.7 Nucleated RBC % (0.0-0.3) % 0.0 Absolute Neutrophils (1.2-6.7) 10^3/uL 4.38 Absolute Lymphocytes (1.2-3.4) 10^3/uL 0.94 L Absolute Monocytes (0.1-0.8) 10^3/uL 0.25 Absolute Eosinophils (0.0-0.7) 10^3/uL 0.08 Absolute Basophils (0.0-0.2) 10^3/uL 0.04 Sodium (136-145) mmol/L 140 Potassium (3.5-5.1) mmol/L 3.6 Chloride (98-107) mmol/L 105 Carbon Dioxide (21.0-32.0) mmol/L 26.5 Anion Gap (3-11) mmol/L 8.5 BUN (7-18) mg/dL 11 Creatinine (0.55-1.02) mg/dL 1.1 H Est GFR (CKD-EPI 2020) (mL/min/1.73m2) 62.37 Glucose (74-106) mg/dL 97 Calcium (8.5-10.1) mg/dL 9.4 Magnesium (1.8-2.4) mg/dL 2.2 Total Bilirubin (0.2-1.0) mg/dL 0.8 AST (15-37) U/L 25 ALT (14-59) U/L 27 Alkaline Phosphatase (46-116) U/L 82 Troponin I (<or=60) ng/L < 50 Total Protein (6.4-8.2) g/dL 8.4 H Albumin (3.4-5.0) g/dL 4.5 Lipase (73-393) U/L 88 Urine Color Cancelled Urine Clarity Cancelled Urine pH Cancelled Ur Specific [place] Cancelled Urine Protein Cancelled Urine Ketones Cancelled Urine Blood Cancelled Urine Nitrite Cancelled Urine Bilirubin Cancelled Urine Urobilinogen Cancelled Ur Leukocyte Esterase Cancelled Urine Glucose Cancelled Range/Units 03/09/22 09:35 WBC (4.4-10.8) 10^3/uL RBC (3.93-5.22) 10^6/uL Hgb (11.2-15.7) g/dL Hct (36.0-46.0) % MCV (80-95) fL MCH (27.0-33.0) pg MCHC (32.0-36.0) % RDW (11.7-14.6) % Plt Count (130-400) 10^3/uL MPV (8.0-11.0) fL Immature Gran % Neutrophils % Lymphocytes % Monocytes % Eosinophils % Basophils % Nucleated RBC % (0.0-0.3) % Absolute Neutrophils (1.2-6.7) 10^3/uL Absolute Lymphocytes (1.2-3.4) 10^3/uL Absolute Monocytes (0.1-0.8) 10^3/uL Absolute Eosinophils (0.0-0.7) 10^3/uL Absolute Basophils (0.0-0.2) 10^3/uL Sodium (136-145) mmol/L Potassium (3.5-5.1) mmol/L Chloride (98-107) mmol/L Carbon Dioxide (21.0-32.0) mmol/L Anion Gap (3-11) mmol/L BUN (7-18) mg/dL Creatinine (0.55-1.02) mg/dL Est GFR (CKD-EPI 2020) (mL/min/1.73m2) Glucose (74-106) mg/dL Calcium (8.5-10.1) mg/dL Magnesium (1.8-2.4) mg/dL Total Bilirubin (0.2-1.0) mg/dL AST (15-37) U/L ALT (14-59) U/L Alkaline Phosphatase (46-116) U/L Troponin I (<or=60) ng/L Total Protein (6.4-8.2) g/dL Albumin (3.4-5.0) g/dL Lipase (73-393) U/L Urine Color Yellow Urine Clarity Clear Urine pH 8.5 H Ur Specific [place] 1.020 Urine Protein Negative Urine Ketones Negative Urine Blood Negative Urine Nitrite Negative Urine Bilirubin Negative Urine Urobilinogen 0.2 Ur Leukocyte Esterase Negative Urine Glucose Negative HPI General Mode of arrival: ambulatory. Date/Time Provider Initiated Documentation: 03/09/22 07:43. Limitations to Documentation: no limitations. Information obtained by: patient. HPI Narrative: 46-year-old female with history of diagnosed chronic Lyme disease, GERD, status postcholecystectomy, presents with chief complaint of abdominal pain. She notes she has had pain in her upper abdomen for the past 1 week. Pain is persistent and worsening. She has associated nausea. She notes pain is worse after eating and hurts almost immediately. Patient notes she has a history of gastritis that usually improves with starting Nexium. She has been using Nexium this past week without much relief. Related Data Home Medications Medication Instructions Recorded Confirmed [id number] 0.4 mg-calcium 162 1 tab PO DAILY 05/15/20 03/09/22 mg-iron 18 [id number] tablet albuterol sulfate 90 mcg/actuation 2 puff inhalation Q6H PRN 05/28/21 03/09/22 aerosol inhaler (Proventil HFA) shortness of breath or wheezing #8.5 grams benzonatate 200 mg capsule 200 mg PO BID-TID PRN cough #14 11/17/21 03/09/22 caps gabapentin 100 mg capsule 100 mg PO TID 11/17/21 03/09/22 mupirocin 2 % topical ointment 1 applic topical TID #15 grams 03/04/22 03/09/22 amoxicillin 875 mg-potassium 1 tab PO BID #14 tabs 03/09/22 clavulanate 125 mg tablet ascorbic acid (vitamin C) 500 mg 500 mg PO TID 03/09/22 03/09/22 chewable tablet esomeprazole magnesium 20 mg 20 mg PO DAILY 03/09/22 03/09/22 capsule,delayed release (Nexium) famotidine 20 mg tablet (Pepcid) 20 mg PO BID #60 tabs 03/09/22 ondansetron 4 mg disintegrating 4 mg PO Q8H PRN nausea and 03/09/22 tablet vomiting #10 tabs Previous Rx's Medication Instructions Recorded albuterol sulfate 90 mcg/actuation 2 puff inhalation Q6H PRN 05/28/21 aerosol inhaler (Proventil HFA) shortness of breath or wheezing #8.5 grams benzonatate 200 mg capsule 200 mg PO BID-TID PRN cough #14 11/17/21 caps mupirocin 2 % topical ointment 1 applic topical TID #15 grams 03/04/22 amoxicillin 875 mg-potassium 1 tab PO BID #14 tabs 03/09/22 clavulanate 125 mg tablet famotidine 20 mg tablet (Pepcid) 20 mg PO BID #60 tabs 03/09/22 ondansetron 4 mg disintegrating 4 mg PO Q8H PRN nausea and 03/09/22 tablet vomiting #10 tabs Allergies Allergy/AdvReac Type Severity Reaction Status Date / Time lamotrigine [From Lamictal] AdvReac Severe Psychosis Verified 03/09/22 07:41 topiramate [From Topamax] AdvReac Severe Other (See Verified 03/09/22 07:41 Comment) trazodone AdvReac Severe Headache Verified 03/09/22 07:41 promethazine AdvReac Intermediate made her Verified 03/09/22 07:41 loopy, outof it Sulfa (Sulfonamide AdvReac Intermediate vomiting Verified 03/09/22 07:41 Antibiotics) Lobster Allergy Uncoded 03/09/22 07:41 antidepressants AdvReac Uncoded 03/09/22 07:41 General Stated Complaint: Abd Prob ELMA: 3 Review of Systems All systems reviewed & are unremarkable except as noted in HPI and below Constitutional Constitutional: Denies fever(s) Gastrointestinal Gastrointestinal: Reports as per HPI, Reports nausea and Denies vomiting PFSH All Active Problems (Updated 03/09/22 @ 10:56 by Toni Flanagan MD) Gastritis (Acute) Bladder wall thickening (Acute) 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 (Acute) Referred otalgia of both ears (Acute) Imbalance (Acute) Sensorineural hearing loss, unilateral, right ear, with unrestricted hearing on the contralateral side (Acute) Perimenopause (Acute) Vaginal discharge (Acute) Dyspareunia (Acute) Vertigo (Acute) Anxiety and depression (Chronic) Irritable bowel syndrome with diarrhea (Acute) 06/25/17 [facility] gastro 10/27/19 [facility] Gastro Medical History Aortic valve regurgitation (03/19/13) ECHO 12/18/2001 Anbx Prophylaxis Chronic GERD Diarrhea Dysphagia, pharyngeal phase 11/15/19 Dr Short - barium swallow ordered Gait instability Hiatal hernia 12/20/19 2 cm GI [facility] Hypothyroidism Low back pain Lyme disease Major depressive disorder, recurrent severe without psychotic features Medication reaction Possibly 2' lamotrigine & topiramate ? Migraine headache without aura Nephrolithiasis INDER (obstructive sleep apnea) Pt states she does not use device, sleeps propped up Paresthesias Personal history of cervical dysplasia (12/08/15) 2008 [facility] - LEEP Rx Schatzki's ring 12/2019 dilation of, [facility] GI Urinary retention Weight gain Surgical History Cervical Procedure (~2008) LEEP H/O esophagogastroduodenoscopy 12/20/19 Dr Phil Reynaga 2 cm hiatal hernia History of elbow surgery R elbow History of laparoscopic-assisted vaginal hysterectomy Ligation of fallopian tube 2002 or 2003 S/P laparoscopic assisted vaginal hysterectomy ([facility]) Status post laparoscopic hysterectomy Family History Father Unknown family medical history Mother Unknown family medical history Alcohol abuse Drug abuse Depression Son Depression treated with Vitamin D Son Depression Social History Smoking/Tobacco Use Status: Never Smoking risk assessment performed?: Yes Alcohol Intake: never Drug use: Never Substance use type: does not use Household members: significant other Housing: house Number of Children: 2 Communication Needs: Corrective Lenses Do you need help understanding health information?: Rarely 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 Pets and animals: Yes Current gender identity: female What type of physical activity do you participate in: none Seatbelt use: always Helmet use: Yes Firearms in home: Yes Firearms unloaded and locked: Yes Do you feel safe at home: Yes Do you feel safe in your relationship?: Yes Female Reproductive History Menstrual control method: permanent sterilization History History 3 Para 2 Hx # Term Pregnancies Multiple births Hx # Pregnancies Ectopic pregnancies AB induced Hx Number of Living Children AB spontaneous Exam Const General: cooperative HENMT Mouth: moist mucous membranes Eyes Conjunctivae: normal conjunctivae Sclera: normal sclerae Neck Neck: trachea midline Resp Auscultation: clear to auscultation bilaterally, no rales, no rhonchi and no wheezes Cardio Rate: regular rate and not tachycardic Rhythm: regular rhythm GI Palpation: soft, not firm, no guarding, no masses, not rigid and tender in the epigastrum, in the LUQ and in the RUQ Skin General skin exam: no rashes or lesions noted Neuro General: patient alert, patient awake and tone normal Extrem General: no edema Psych Appearance: grossly normal Mental Status: mental status grossly normal Speech and Movement: speech and movement normal Course Vital Signs Vital signs: Vital Signs Temperature 37.1 C 03/09/22 07:34 Pulse 82 03/09/22 07:34 Respiratory Rate 17 03/09/22 07:34 Blood Pressure 113/79 03/09/22 07:34 Pulse Oximetry 97 03/09/22 07:34 Temperature 37.1 C 03/09/22 07:34 Temperature Source Temporal Artery Scan 03/09/22 07:34 Pulse 82 03/09/22 07:34 Respiratory Rate 17 03/09/22 07:34 Respiratory Effort Non-Labored 03/09/22 07:37 Blood Pressure 113/79 03/09/22 07:34 Blood Pressure Position Sitting 03/09/22 07:34 Pulse Oximetry 97 03/09/22 07:34 Oxygen Delivery Method Room Air 03/09/22 07:34 Oxygen Flow Rate 0 03/09/22 07:34 Pain Level 4 03/09/22 07:34
[2022-03-09] MEDS: Mylanta Suspension 30 ML CUP PO (08:43)
[2022-03-09] MEDS: FAMOTIDINE 20 MG in Normal Saline 100 ML 400 MG IVPB (08:44)
[2022-03-09 09:10] LABS: Abs Immature Grans 0.02 10^3/uL (0.0-0.06); Absolute Basophil Count 0.04 10^3/uL (0.0-0.2); Absolute Eosinophil Count 0.08 10^3/uL (0.0-0.7); Absolute Lymphocyte Count 0.94 10^3/uL (1.2-3.4); Absolute Monocyte Count 0.25 10^3/uL (0.1-0.8); Absolute Neutrophil Count 4.38 10^3/uL (1.2-6.7); Basophils % 0.7; Eosinophils % 1.4; HCT 42.5 % (36.0-46.0); HGB 14.3 g/dL (11.2-15.7); Immature Grans % 0.4; Lymphocytes % 16.5; MCH 30.8 pg (27.0-33.0); MCHC 33.6 % (32.0-36.0); MCV 91 fL (80-95); MPV 11.4 fL (8.0-11.0); Monocytes % 4.4; Neutrophils % 76.6; Platelet Count 277 10^3/uL (130-400); RBC 4.65 10^6/uL (3.93-5.22); RDW 11.3 % (11.7-14.6); RDW-SD 38.2 fL; WBC 5.71 10^3/uL (4.4-10.8)
--- NOTE | 2022-03-09 09:15 | DI.CT_ITS ---
Exam(s) CT ABDOMEN PELVIS W EXAM: CT ABDOMEN PELVIS W CLINICAL HISTORY: epigastric abd pain. TECHNIQUE: Imaging Protocol: Axial computed tomography images with coronal and sagittal reformatted images were created and reviewed CONTRAST MATERIAL: Intravenous: Omnipaque-350 100cc Oral: None COMPARISON: CT CT THORAX CTA from 02/22/2020 FINDINGS: VISUALIZED LUNG BASES: No nodules nor pleural effusions evident. ABDOMEN: There is no ascites. LIVER: There are no focal hepatic lesions evident. Mild steatosis evident. No dilated intrahepatic ducts. GALLBLADDER/BILIARY: The gallbladder surgically absent. CBD is not dilated. PANCREAS: No evidence of pancreatic mass nor dilatation of the pancreatic duct. SPLEEN: Spleen is not enlarged. No obvious intrasplenic lesions. Splenic and portal veins are paten t. ADRENALS: There are no significant adrenal masses. KIDNEYS:Small 6 millimeter benign cyst noted in the right kidney. Does not require further investiga tion. No solid renal masses. No calculi nor hydronephrosis.. ABDOMINAL AORTA: Abdominal aorta is not enlarged. LYMPH NODES:There is no retroperitoneal nor paraaortic adenopathy. ABDOMINAL WALL: No evidence of significant anterior abdominal wall nor inguinal hernia. Umbilical or nament. No abscess at this level. GI: There is no evidence of bowel obstruction, free air, nor abscess. PELVIS: GI: No evidence of appendicitis.No evidence of sigmoid diverticulitis. LYMPH NODES: There is no intrapelvic nor inguinal adenopathy. REPRODUCTIVE: Uterus is surgically absent. There are no abnormal adnexal masses. No free fluid in t he pelvis. URINARY BLADDER: Urinary bladder wall is uniformly thickened. This may in part be related to under d istension but cannot exclude possibility of cystitis. There is no air-gas in the bladder wall. Ther e is no prominent perivesicular fat streaking. OSSEOUS: No significant osseous lesions. No fractures. IMPRESSION: 1. There is relatively uniform circumferential thickening of the urinary bladder wall. Although this may be in part related to under distension, other possibly would be cystitis. There is no evidence of gas in the urinary bladder wall nor in the bladder lumen. Kidneys are unremarkable. 2. There is evidence of previous cholecystectomy and hysterectomy. There is no evidence of bowel obs truction, free air, nor abscess. 3. Mild hepatic steatosis. No ominous focal hepatic lesions. No ascites. RADIATION DOSE DELIVERED: 1,004.08mGy.cm Total DLP DATA REPOSITORY: All CT scans at this facility are submitted to the National Radiology Data Registry (NRDR) Dose Index Registry (DIR) with the [employer] (ACR). RADIATION OPTIMIZATION: All CT scans at this facility use at least one of these dose optimization te chniques: automated exposure control; mA and/or kV adjustment per patient size (includes targeted exa ms where dose is matched to clinical indication); or iterative reconstruction.
[2022-03-09] MEDS: Lactated Ringers 1,000 ML 1000 ML IV (09:19)
[2022-03-09 09:31] LABS: ALT 27 U/L (14-59); AST 25 U/L (15-37); Albumin 4.5 g/dL (3.4-5.0); Alkaline Phosphatase 82 U/L (46-116); Anion Gap 8.5 mmol/L (3-11); BUN 11 mg/dL (7-18); Bilirubin, Total 0.8 mg/dL (0.2-1.0); CO2 26.5 mmol/L (21.0-32.0); CREATININE 1.1 mg/dL (0.55-1.02); Calcium 9.4 mg/dL (8.5-10.1); Chloride 105 mmol/L (98-107); Estimated GFR 62.37 (mL/min/1.73m2); Glucose 97 mg/dL (74-106); Lipase 88 U/L (73-393); Magnesium 2.2 mg/dL (1.8-2.4); Potassium 3.6 mmol/L (3.5-5.1); Sodium 140 mmol/L (136-145); Total Protein 8.4 g/dL (6.4-8.2); Troponin I < 50 ng/L (<or=60)
[2022-03-09 09:48] LABS: Bilirubin Negative (Negative); Blood Negative (Negative); Clarity Clear (Clear); Glucose Negative (Negative); Ketones Negative (Negative); Leukocyte Esterase Negative (Negative); Nitrite Negative (Negative); Urobilinogen 0.2 EU/dL (Up TO 0.2); pH 8.5 (5-8)
[2022-03-09] MEDS: Omnipaque 350 MG/ML 100 ML BTL IJ (09:55)
[2022-03-09] MEDS: Normal Saline - Diluent 50 ML VIAL IJ (09:55)
[2022-03-09 10:18] VITALS: BP 118/63; PULSE 76; TEMP 36.9; O2SAT 98
--- NOTE | 2022-03-09 10:20 | DI.VRAD_ITS ---
PROCEDURE INFORMATION: Exam: CT Abdomen And Pelvis With Contrast Exam date and time: 03/09/2022 9:44 AM Age: 46 years old Clinical indication: Abdominal pain; Prior surgery; Surgery type: Lindsay TECHNIQUE: Imaging protocol: Computed tomography of the abdomen and pelvis with contrast. COMPARISON: CR XR HIP LT COMPLETE AP PELVIS 04/21/2020 3:05 PM FINDINGS: Liver: Normal. No mass. Gallbladder and bile ducts: Previous cholecystectomy. Pancreas: Normal. No ductal dilation. Spleen: Normal. No splenomegaly. Adrenal glands: Normal. No mass. Kidneys and ureters: Simple cortical renal cyst midpole right kidney measures 5 mm. No hydronephrosis. Stomach and bowel: Unremarkable. No obstruction. No mucosal thickening. Appendix: No evidence of appendicitis. Intraperitoneal space: Unremarkable. No free air. No significant fluid collection. Vasculature: Unremarkable. No abdominal aortic aneurysm. Lymph nodes: Unremarkable. No enlarged lymph nodes. Urinary bladder: Diffuse bladder wall thickening, may be due to incomplete distention. Clinical correlation with acute cystitis recommended. Reproductive: Unremarkable as visualized. Bones/joints: Unremarkable. No acute fracture. Soft tissues: Unremarkable. IMPRESSION: Diffuse bladder wall thickening, may be due to incomplete distention. Clinical correlation with acute cystitis recommended. Dictated and Authenticated by: Dayna Mcnair MD. Ordering:JETT Muñoz MD
[2022-03-09] MEDS: cefTRIAXone 1 GM/50 ML BAG IVPB (11:00)
[2022-03-09] MEDS: Lidocaine 2% Viscous 15 ML CUP PO (11:03)
[2022-03-09] MEDS: Ondansetron 4 MG/2 ML VIAL IVP (11:04)
--- NOTE | 2022-03-09 11:28 | NUR.NOTE ---
Nursing Note: Referral given to Care Management for needs PCP, not happy with [facility]; follow up bladder wall thickening, gastritis,establish care; next available.
[2022-03-09 11:58] VITALS: BP 119/60; PULSE 69; TEMP 37; O2SAT 97
--- NOTE | 2022-03-09 12:34 | NUR.NOTE ---
Nursing Note: Referral faxed to [facility] for needs endoscopy, ? ulcer, severe gastritris, next available
== END 2022-03-09 12:10 | disposition home or self-care (01) ==
PROVIDERS: Emergency Provider Student in an Organized Health Care Education/Training Program; PCP Nurse Practitioner Family
DX: K29.70 Gastritis, unspecified, without bleeding (principal); N32.89 Other specified disorders of bladder; E03.9 Hypothyroidism, unspecified; Z90.49 Acquired absence of other specified parts of digestive tract
CPT/HCPCS: 36415; 80053; 83690; 96361; 96365; 96367; 96375; 99285; 74177; 81003; 83735; 84484; 85025; 87086; 99284; J0696; J2405; J3490

== ENCOUNTER 2022-04-09 09:47 | Emergency (ER) | payer BC, MEDICAID, SELFPAY ==
[2022-04-09 09:50] VITALS: BP 132/77; PULSE 85; RESP 18; TEMP 36.8; O2SAT 99
[2022-04-09 10:49] LABS: Influenza A PCR Negative (Negative); Influenza B PCR Negative (Negative); RSV PCR Negative (Negative)
[2022-04-09 10:52] LABS: Source Nasopharynx
[2022-04-09 10:53] LABS: COVID-19 PCR Positive (Negative)
--- NOTE | 2022-04-09 11:06 | W.ED.GENAD ---
Discharge Plan Disposition Patient Disposition: Home Condition: Stable Discharge Details Clinical Impression: COVID, Anxiety and depression Primary Care Provider: Akua Ding ED Provider: Jose J Piña Home Meds and New Rx's Prescriptions: No Action mupirocin 2 % ointment 1 applic topical TID Qty: 15 0RF albuterol sulfate [Proventil HFA] 90 mcg/actuation HFA aerosol inhaler 2 puff inhalation Q6H PRN (Reason: shortness of breath or wheezing) Qty: 8.5 0RF es-khk-OH-Oi-Hc-tgcoivh-lutein 0.4-162-18 mg Tablet 1 tab PO DAILY fluconazole 150 mg tablet 150 mg PO DAILY Label Comments: TAKE 1 TABLET IN SINGLE DOSE gabapentin 100 mg capsule 100 mg PO TID ascorbic acid (vitamin C) 500 mg Tablet,Chewable 500 mg PO TID esomeprazole magnesium [Nexium] 20 mg Capsule,Delayed Release(Dr/Ec) 20 mg PO DAILY amoxicillin-pot clavulanate 875-125 mg tablet 1 tab PO BID Qty: 14 0RF ondansetron 4 mg tablet,disintegrating 4 mg PO Q8H PRN (Reason: nausea and vomiting) Qty: 10 0RF famotidine [Pepcid] 20 mg tablet 20 mg PO BID Qty: 60 0RF Discharge Instructions Instructions: Anxiety (ED), COVID-19 (Coronavirus Disease 2019) (ED) Additional Instructions: Please continue to stay well-hydrated and take [id number]-xbx-ikojrth medications as needed for discomfort. If you develop any significant worsening of your symptoms please return to the emergency department for reassessment otherwise follow-up with your primary care provider Stand Alone Forms: Work Release Referrals: Akua Ding [Primary Care Provider] - (If not improving in the next week please follow-up with your primary care provider for reassessment) Discharge Data Discharge Date/Time-TO BE ENTERED AT DEPARTURE: 04/09/22 11:47 Medical Decision Making Patient presenting to emergency department significant other for multiple complaints. Patient states that she was at another hospital emergency department this morning and had significant poor experience. She states that she woke up with headache, ear pain, numbness tingling to her hands feet and face. She states that she had thorough work-up performed at other facility but due to experience left and came here. She states that they offered Tylenol but then she did not get any by the time she left. Patient agreeable to me receiving records from other facility. Physical exam shows anxious patient with mild to very faint air-fluid levels in bilateral ears clear lung sounds, and normal neurological exam. Patient does state cold-like symptoms last week where she thought she had bronchitis. Given viral type symptoms last week and patient states that she did not receive any viral testing will perform fluvid and mono test pending review records. Pending results we will give patient IV fluids and ketorolac. Pending results I was able to review [facility] records that showed very thorough work-up. Patient had CTA brain and neck performed with no emergent findings noted, labs were overall unremarkable. Emergency department provider did offer lumbar puncture due to patient's continued complaint of headache. Patient refused this testing. Of note at emergency department visit in [place] did discuss with staff patient's significant and severe anxiety with similar symptoms. See results that patient was COVID-positive and negative for influenza and RSV. I suspect this is the source of patient's malaise and not feeling well that increased a panic attack. There may be some serous otitis media noted but again these are very subtle findings that may be contributing to patient's ear pain. Discussed these results with patient and patient is significantly comforted by these results. Discussed high suspicion of panic attack secondary to discomfort which patient does endorse this. staff electrical engineer was unable to establish IV access and patient stated that now that she had a diagnosis she felt comfortable going home and using oral medication and p.o. hydration. I feel this is reasonable. Did discussed with patient to follow-up to primary care provider if not improving but given patient has had symptoms for approximately 9 days discussed further and typical recovery of viral illness. Also discussed with patient options for counseling to further discuss her anxiety and depression which is a significant contributor to patient's visit. After discussion of diagnosis and plan of care patient has no further needs, questions, or concerns and states clear understanding to return to the emergency department for any worsening symptoms. This documentation was generated using Incontation system, please disregard any oddities of phrase or misspellings. Medical Records Medical records reviewed: Yes I reviewed the patient's medical records. Medical records narrative: Reviewed [facility] emergency department documentation labs and radiological imaging results. Lab Data Lab results reviewed: Yes I reviewed the patient's lab results. HPI General Mode of arrival: ambulatory. Date/Time Provider Initiated Documentation: 04/09/22 10:00. Limitations to Documentation: no limitations. Information obtained by: patient, RN notes reviewed and old records reviewed. History of Present Illness 46 year old F presents to the emergency department with the chief complaint of ear pain, face pain and leg tingling, sore throat, described as moderate and severe, with intensity rated at 8. Quality is described as sharp, and is localized to the head (Years). Patient started experiencing this hour(s) (3) and it has been constant and intermittent. No relieving factors improve symptom(s), No exacerbating factors reported . Patient notes cough. Related Data Home Medications Medication Instructions Recorded Confirmed [id number]-LR 0.4 mg-calcium 162 1 tab PO DAILY 05/15/20 04/09/22 mg-iron 18 hi-rahflua-znxped tablet albuterol sulfate 90 mcg/actuation 2 puff inhalation Q6H PRN 05/28/21 03/09/22 aerosol inhaler (Proventil HFA) shortness of breath or wheezing #8.5 grams gabapentin 100 mg capsule 100 mg PO TID 11/17/21 04/09/22 mupirocin 2 % topical ointment 1 applic topical TID #15 grams 03/04/22 03/09/22 amoxicillin 875 mg-potassium 1 tab PO BID #14 tabs 03/09/22 clavulanate 125 mg tablet ascorbic acid (vitamin C) 500 mg 500 mg PO TID 03/09/22 04/09/22 chewable tablet esomeprazole magnesium 20 mg 20 mg PO DAILY 03/09/22 04/09/22 capsule,delayed release (Nexium) famotidine 20 mg tablet (Pepcid) 20 mg PO BID #60 tabs 03/09/22 04/09/22 ondansetron 4 mg disintegrating 4 mg PO Q8H PRN nausea and 03/09/22 04/09/22 tablet vomiting #10 tabs fluconazole 150 mg tablet 150 mg PO DAILY 04/09/22 04/09/22 Previous Rx's Medication Instructions Recorded albuterol sulfate 90 mcg/actuation 2 puff inhalation Q6H PRN 05/28/21 aerosol inhaler (Proventil HFA) shortness of breath or wheezing #8.5 grams mupirocin 2 % topical ointment 1 applic topical TID #15 grams 03/04/22 amoxicillin 875 mg-potassium 1 tab PO BID #14 tabs 03/09/22 clavulanate 125 mg tablet famotidine 20 mg tablet (Pepcid) 20 mg PO BID #60 tabs 03/09/22 ondansetron 4 mg disintegrating 4 mg PO Q8H PRN nausea and 03/09/22 tablet vomiting #10 tabs Allergies Allergy/AdvReac Type Severity Reaction Status Date / Time lamotrigine [From Lamictal] AdvReac Severe Psychosis Verified 04/09/22 09:55 topiramate [From Topamax] AdvReac Severe Other (See Verified 04/09/22 09:55 Comment) trazodone AdvReac Severe Headache Verified 04/09/22 09:55 promethazine AdvReac Intermediate made her Verified 04/09/22 09:55 loopy, outof it Sulfa (Sulfonamide AdvReac Intermediate vomiting Verified 04/09/22 09:55 Antibiotics) Lobster Allergy Uncoded 04/09/22 09:55 antidepressants AdvReac Uncoded 04/09/22 09:55 General Stated Complaint: GenMedical ELMA: 3 Review of Systems Constitutional Constitutional: Reports chills, Denies fever(s), Reports headache(s), Reports lethargy and Reports malaise Eyes Eyes: Reports system reviewed and no additional complaints, except as documented ENT Ears, Nose, Mouth, and Throat: Reports as per HPI, Reports otalgia, Reports headache(s), Reports nasal congestion, Reports nasal discharge, Reports post nasal drip and Reports sore throat Cardiovascular Cardiovascular: Denies chest pain and Reports dyspnea Respiratory Respiratory: Denies chest congestion, Reports cough and Reports dyspnea Gastrointestinal Gastrointestinal: Reports nausea Genitourinary Genitourinary: Reports system reviewed and no additional complaints, except as documented Musculoskeletal Musculoskeletal: Reports myalgias Integumentary/Breasts Skin/Breast: Denies rash Neurologic Neurologic: Reports headache(s) Psychiatric Psychiatric: Reports anxiety PFSH All Active Problems COVID (Acute) 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 (Acute) Referred otalgia of both ears (Acute) Imbalance (Acute) Sensorineural hearing loss, unilateral, right ear, with unrestricted hearing on the contralateral side (Acute) Perimenopause (Acute) Vaginal discharge (Acute) Dyspareunia (Acute) Vertigo (Acute) Anxiety and depression (Chronic) Irritable bowel syndrome with diarrhea (Acute) 06/25/17 [facility] gastro 10/27/19 [facility] Medical History Aortic valve regurgitation (03/19/13) ECHO 12/18/2001 [facility] Prophylaxis Chronic GERD Diarrhea Dysphagia, pharyngeal phase 11/15/19 Dr Short - barium swallow ordered Gait instability Hiatal hernia 12/20/19 2 cm GI [facility] Hypothyroidism Low back pain Lyme disease Major depressive disorder, recurrent severe without psychotic features Medication reaction Possibly 2' lamotrigine & topiramate ? Migraine headache without aura Nephrolithiasis INDER (obstructive sleep apnea) Pt states she does not use device, sleeps propped up Paresthesias Personal history of cervical dysplasia (12/08/15) 2009 [facility] III - LEEP Rx Schatzki's ring 12/2019 dilation of, [facility] Urinary retention Weight gain Surgical History Cervical Procedure (~2008) LEEP H/O esophagogastroduodenoscopy 12/20/19 Dr Phil Reynaga 2 cm hiatal hernia History of elbow surgery R elbow History of laparoscopic-assisted vaginal hysterectomy Ligation of fallopian tube 2002 or 2003 S/P laparoscopic assisted vaginal hysterectomy ([facility]) Status post laparoscopic hysterectomy Family History Father Unknown family medical history Mother Unknown family medical history Alcohol abuse Drug abuse Depression Son Depression treated with Vitamin D Son Depression Social History Smoking/Tobacco Use Status: Never Smoking risk assessment performed?: Yes Alcohol Intake: never Drug use: Never Substance use type: does not use Details: CBD oil BID Household members: significant other Housing: house Number of Children: 2 Communication Needs: Corrective Lenses Do you need help understanding health information?: Rarely 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 Pets and animals: Yes Current gender identity: female What type of physical activity do you participate in: none Seatbelt use: always Helmet use: Yes Firearms in home: Yes Firearms unloaded and locked: Yes Do you feel safe at home: Yes Do you feel safe in your relationship?: Yes Female Reproductive History Menstrual control method: permanent sterilization History History 3 Para 2 Hx # Term Pregnancies Multiple births Hx # Pregnancies Ectopic pregnancies AB induced Hx Number of Living Children AB spontaneous Exam Const General: cooperative Orientation: alert, awake and oriented x3 HENMT Head: normal to inspection Ears: hearing grossly normal bilaterally and TM abnormal with fluid behind the TM bilaterally (Small air-fluid levels noted) General nose exam: external nose normal Face and sinus: normal facial exam Mouth: oral mucosae normal and moist mucous membranes Throat: posterior oropharynx abnormal erythema (Scant to mild) Eyes Visual Douglas: normal visual douglas by confrontation Alignment and Position: alignment normal Periorbital: periorbital findings normal Eyelids: eyelids normal Sclera: sclerae normal Cornea: corneas normal Pupils: PERRL EOM: EOM intact bilaterally Neck Neck: normal visual inspection, full ROM, no lymphadenopathy and no meningeal signs Resp Effort & Inspection: normal respiratory effort and able to speak in complete sentences Auscultation: clear to auscultation bilaterally Cardio Rate: regular rate Rhythm: regular rhythm Heart Sounds: S1 normal and S2 normal Neuro General: patient alert, patient awake, patient oriented x3, gait normal, tone normal, moves all extremities, CN's II-XI intact bilaterally and not confused Cognition: normal cognition Speech: speech normal Motor: muscle tone normal throughout, strength 5/5 throughout, no pronator drift, no movement abnormalities noted and no fasciculations Sensory Exam: no sensory deficits noted Psych Affect: anxious affect Course Vital Signs Vital signs: Vital Signs Temperature 36.8 C 04/09/22 09:50 Pulse 85 04/09/22 09:50 Respiratory Rate 18 04/09/22 09:50 Blood Pressure 132/77 04/09/22 09:50 Pulse Oximetry 99 04/09/22 09:50 Temperature 36.8 C 04/09/22 09:50 Temperature Source Skin 04/09/22 09:50 Pulse 85 04/09/22 09:50 Respiratory Rate 18 04/09/22 09:50 Respiratory Effort 04/09/22 10:37 Respiratory Depth Normal 04/09/22 10:37 Respiratory Pattern Normal 04/09/22 10:37 Blood Pressure 132/77 04/09/22 09:50 Blood Pressure Position Sitting 04/09/22 09:50 Pulse Oximetry 99 04/09/22 09:50 Oxygen Delivery Method Room Air 04/09/22 09:50 Oxygen Flow Rate 0 04/09/22 09:50 Pain Level 0 04/09/22 09:50 Lab/Test Results Lab/Test Results: 04/09/22 10:10 Pharynx Group A Streptococcus Culture - Pending Laboratory Tests Range/Units 04/09/22 04/09/22 10:08 10:41 COVID-19 Source Nasopharynx SARS-CoV-2 (PCR) (Negative) Positive A Monoscreen Cancelled Influenza Type A (PCR) (Negative) Negative Influenza Type B (PCR) (Negative) Negative RSV (PCR) (Negative) Negative POC Strep Test-NIKOLAY(Rapid) Start: 04/09/22 10:03 Freq: .Rapid Strep Test Status: Active Protocol: Document 04/09/22 10:21 NB (Rec: 04/09/22 10:21 NB [id number]) Strep test-NIKOLAY(Rapid)-POC POC-Strep test-NIKOLAY (Rapid) Negative POC-Strep test-NIKOLAY (Rapid) Negative
== END 2022-04-09 11:47 | disposition home or self-care (01) ==
PROVIDERS: Emergency Provider Nurse Practitioner Family; PCP Nurse Practitioner Family
DX: U07.1 COVID-19 (principal); F32.A Depression, unspecified; F41.9 Anxiety disorder, unspecified; E03.9 Hypothyroidism, unspecified
CPT/HCPCS: 87637; 87880; 96361; 96374; 99284; 86308; 87081

== ENCOUNTER 2022-06-11 02:54 | Outpatient (CLI) | payer BC, MEDICAID, SELFPAY ==
[2022-06-11 12:24] LABS: Hemoglobin A1C 4.9 % (<5.7)
[2022-06-11 13:16] LABS: Calculated LDL 100 mg/dL (<100); Cholesterol 179 mg/dL (<200); HDL Cholesterol 60 mg/dL (40-60); TSH (W/Ref FT4) 1.34 uIU/mL (0.36-3.74); Triglyceride 95 mg/dL (<150)
== END 2022-06-11 02:55 | disposition home or self-care (01) ==
LOC: LBO 02:54
PROVIDERS: PCP Nurse Practitioner Family; Visit Provider Nurse Practitioner Family
DX: Z13.220 Encounter for screening for lipoid disorders (principal); Z13.1 Encounter for screening for diabetes mellitus; Z13.29 Encounter for screening for other suspected endocrine disorder
CPT/HCPCS: 36415; 80061; 83036; 84443

== ENCOUNTER 2022-06-24 10:07 | Outpatient (CLI) | payer BC, MEDICAID, SELFPAY ==
--- NOTE | 2022-06-24 11:28 | DI.US_ITS ---
APPROVED REPORT EXAM: Comprehensive 2D, Doppler, and color-flow Echocardiogram Patient Location: Out-Patient Supervisor [place]: Carolyn Bautista RDCS (AE) Indications: Aortic regurgitation found in 2005 Other Information Study Quality: Good Conclusion Normal left ventricular wall thickness and chamber size. Estimated ejection fraction is 65%. Wall m otion is normal Normal right ventricular size and systolic function Both atria are normal in size No structural or hemodynamically significant valvular disease Major right ventricular systolic pressure is 23 mmHg Wall motion Left Ventricle The left ventricle is normal size. The left ventricular systolic function is normal. The left ventric ular ejection fraction is within the normal range. There is normal left ventricular wall thickness. T here is normal LV segmental wall motion. There is no ventricular septal defect visualized. LVEF is 65 %. Right Ventricle The right ventricle is normal size. The right ventricular systolic function is normal. The RVSP is 22 .9 mmHg. Atria The left atrium size is normal. The right atrium size is normal. The interatrial septum is intact wit h no evidence for an atrial septal defect. Aortic Valve The aortic valve is normal in structure. Aortic valve is trileaflet. There is no aortic valvular sten osis. No aortic regurgitation is present. Mitral Valve The mitral valve is normal in structure. No evidence of mitral valve stenosis. Trace mitral regurgita tion. Tricuspid Valve The tricuspid valve is normal in structure. There is no tricuspid valve stenosis. Mild tricuspid regu rgitation. Pulmonic Valve The pulmonary valve is normal in structure. There is no pulmonic valvular stenosis. There is no pulmo kristyn valvular regurgitation. Great Vessels The aortic root is normal in size. The ascending aorta is normal in size. Aortic arch is normal in ca liber. IVC is normal in size and collapses >50% with inspiration. Pericardium There is no pericardial effusion. 2D Dimensions IVSD d PLAX 0.64 cm F: 0.6-1.0 LV Vol A2C d MOD 93.9 mL LVPW d PLAX 0.65 cm F: 0.6 - 1.0 LV Vol A4C d MOD 103.0 mL LVID d PLAX 4.57 cm F: 3.8 - 5.2 LA vol/ BSA A2C s A-L 21.7 mL/m2 LVDs 3.05 cm F: 2.2 - 3.5 LA vol/ BSA A4C s A-L 24.0 mL/m2 Ao Root d 2.40 cm F: 2.7 - 3.3 LA Vol/ BSA Biplane s A-L 24.8 mL/m2 RA Area A4C 15.04 cm2 LA Area A4C s MOD 18.18 cm2 RA Vol/ BSA A4C s A-L 20.7 mL/m2 LA Area A2C s MOD 15.91 cm2 Ao Asc Diam d 2.83 cm F: 2.3 - 3.1 LV EF A4C MOD 65.4 % LV EF Teichholz 62.0 % LV EF A2C MOD 65.9 % LVEF (Johnson's) 66.67 % F: 54 - 74 LV EF Biplane MOD 66.7 % LV Volume 78.40 mL F: 46 - 106 SV 69.44 mL LV Volume Index 39.59 mL/m2 F: 29 - 61 SV Index 35.10 mL/m2 LV Vol Biplane MOD 104.1 mL FS 33.20 % M-Mode TAPSE 2.73 cm (M/F) >1.7 LV Diastology MV E' medial 0.109 (>0.07 m/s) E/A Ratio 1.5 LV E/e MED 9.45 (<14) MV E Vmax 1.03 (0.4-1.3 m/s) MV E' lateral 0.141 (>0.1 m/s) MV A Vmax 0.70 (0.4-1.3 m/s) LV E/e LAT 7.30 (<14) MV E/A Ratio 1.38 MV E/E' medial 9.49 MV E/E' lateral 7.34 Aortic Valve LVOT Area 2.92 cm2 AoV Area Vmax 2.45 cm2 LVOT Vmax 1.14 m/s AoV Area/ BSA (Vmax) 1.24 cm2/m2 LVOT Mean Wiliam. 0.69 m/s ALICE Mean Wiliam. 2.21 cm2 LVOT Peak Grad 5.2 mmHg ALICE Mean Wiliam. Index 1.12 cm2/m2 LVOT Mean Grad 2.4 mmHg LVOT VTI 0.269 m LVOT Diam s 1.90 cm AoV Vmax 1.36 m/s Velocity Ratio 0.84 AoV Mean Wiliam. 0.92 m/s AoV Peak Grad 7.4 mmHg LVOT SV 78.57 mL AoV Mean Grad 3.9 mmHg AoV VTI 0.273 m AoV Area VTI 2.88 cm2 AoV Area/ BSA (VTI) 1.46 cm/m2 Mitral Valve MV DT 189 (160-240 msec) MV PHT 55 msec MV Area PHT 4.01 cm2 MV VTI 0.373 m MV Area VTI 2.10 (4.0-6.0 cm2) Pulmonary Valve PV Vmax 1.37 (0.5-1.5 m/s) RVOT Peak Gr. 4.49 mmHg PV Peak Grad 7.5 mmHg RVOT Mean Gr. 2.20 mmHg PV Mean Grad 3.8 mmHg RVOT VTI 0.229 m PV VTI 0.304 m RVOT Vmax 1.06 m/s Tricuspid Valve TR Peak Grad 19.8 mmHg TR Vmax 2.23 m/s RA Pressure 3.00 mmHg RVSP (TR) 22.9 mmHg
== END 2022-06-24 10:27 ==
LOC: DI 10:08
PROVIDERS: PCP Nurse Practitioner Family; Visit Provider Nurse Practitioner Family
DX: I35.1 Nonrheumatic aortic (valve) insufficiency (principal)
CPT/HCPCS: 93306

== ENCOUNTER 2022-07-08 01:33 | Outpatient (CLI) | payer BC, MEDICAID, SELFPAY ==
[2022-07-08 11:18] LABS: ALT 31 U/L (14-59); AST 14 U/L (15-37); Albumin 3.9 g/dL (3.4-5.0); Alkaline Phosphatase 83 U/L (46-116); Anion Gap 6.7 mmol/L (3-11); BUN 15 mg/dL (7-18); Bilirubin, Total 0.5 mg/dL (0.2-1.0); CO2 25.3 mmol/L (21.0-32.0); CREATININE 1.2 mg/dL (0.55-1.02); Calcium 9.3 mg/dL (8.5-10.1); Chloride 105 mmol/L (98-107); Estimated GFR 56.19 (mL/min/1.73m2); Glucose 85 mg/dL (74-106); Sodium 137 mmol/L (136-145); Total Protein 7.7 g/dL (6.4-8.2)
== END 2022-07-08 01:34 | disposition home or self-care (01) ==
LOC: LBO 01:33
PROVIDERS: PCP Nurse Practitioner Family; Visit Provider Naturopath
DX: I95.1 Orthostatic hypotension (principal); R29.818 Other symptoms and signs involving the nervous system; R00.2 Palpitations; R53.83 Other fatigue; K21.9 Gastro-esophageal reflux disease without esophagitis; K29.70 Gastritis, unspecified, without bleeding; R63.5 Abnormal weight gain; G31.84 Mild cognitive impairment of uncertain or unknown etiology; R06.83 Snoring
CPT/HCPCS: 36415; 80053

== ENCOUNTER 2022-10-17 04:33 | Outpatient (CLI) | payer BC, SELFPAY ==
[2022-10-17 14:10] LABS: Abs Immature Grans 0.02 10^3/uL (0.0-0.06); Absolute Basophil Count 0.05 10^3/uL (0.0-0.2); Absolute Lymphocyte Count 1.84 10^3/uL (1.2-3.4); Absolute Monocyte Count 0.49 10^3/uL (0.1-0.8); Absolute Neutrophil Count 6.03 10^3/uL (1.2-6.7); Basophils % 0.6; Eosinophils % 1.2; HCT 38.8 % (36.0-46.0); HGB 13.6 g/dL (11.2-15.7); Immature Grans % 0.2; Lymphocytes % 21.6; MCH 31.1 pg (27.0-33.0); MCHC 35.1 % (32.0-36.0); MCV 89 fL (80-95); MPV 11.8 fL (8.0-11.0); Monocytes % 5.7; Neutrophils % 70.7; Platelet Count 165 10^3/uL (130-400); RBC 4.38 10^6/uL (3.93-5.22); RDW 11.6 % (11.7-14.6); RDW-SD 37.6 fL; WBC 8.53 10^3/uL (4.4-10.8)
[2022-10-17 14:54] LABS: ALT 29 U/L (14-59); AST 17 U/L (15-37); Albumin 3.9 g/dL (3.4-5.0); Alkaline Phosphatase 73 U/L (46-116); Anion Gap 7.2 mmol/L (3-11); BUN 20 mg/dL (7-18); Bilirubin, Total 0.3 mg/dL (0.2-1.0); CO2 26.8 mmol/L (21.0-32.0); CREATININE 1.3 mg/dL (0.55-1.02); Calcium 9.3 mg/dL (8.5-10.1); Chloride 104 mmol/L (98-107); Estimated GFR 51.04 (mL/min/1.73m2); Glucose 92 mg/dL (74-106); Potassium 4.2 mmol/L (3.5-5.1); Sodium 138 mmol/L (136-145); Total Protein 7.2 g/dL (6.4-8.2)
== END 2022-10-17 04:34 | disposition home or self-care (01) ==
LOC: LBO 04:33
PROVIDERS: PCP Nurse Practitioner Family; Visit Provider Naturopath
DX: E66.9 Obesity, unspecified (principal); I95.1 Orthostatic hypotension; K21.9 Gastro-esophageal reflux disease without esophagitis; R29.818 Other symptoms and signs involving the nervous system
CPT/HCPCS: 36415; 80053; 85025

== ENCOUNTER 2023-01-01 03:59 | Outpatient (CLI) | payer BC, SELFPAY ==
[2023-01-01 08:58] LABS: Hemoglobin A1C 5.2 % (<5.7)
[2023-01-01 09:37] LABS: Vitamin D 25 Total 47.9 ng/mL (30-100)
[2023-01-01 09:44] LABS: Calculated LDL 111 mg/dL (<100); Cholesterol 184 mg/dL (<200); HDL Cholesterol 48 mg/dL (40-60); TSH 1.61 uIU/mL (0.36-3.74); Triglyceride 126 mg/dL (<150); Vitamin B12 436 pg/mL (193-986)
[2023-01-01 10:01] LABS: FREE T4 0.88 ng/dL (0.76-1.46)
[2023-01-01 19:27] LABS: T3, Total 221 ng/dL (97-169)
[2023-01-01 20:02] LABS: Estradiol 125 pg/mL (See Note); Progesterone 14.6 ng/mL (See Table)
[2023-01-01 20:42] LABS: FSH 5.5 mIU/mL (See Note); Sex Hormone Binding Globulin 57.2 nmol/L (See Note); Thyroglobulin Antibody 182 U/mL (<=60); Thyroperoxidase Antibody <28 U/mL (<=60)
[2023-01-03 10:56] LABS: Lipoprotein (a) 10 nmol/L (<75)
[2023-01-08 09:38] LABS: T3 (Triiodothyronine) Reverse 15 ng/dL (10-24)
[2023-01-08 16:56] LABS: Testosterone, Free 0.59 ng/dL (<0.13-0.95); Testosterone, Total 29 ng/dL (8-60)
== END 2023-01-01 04:00 | disposition home or self-care (01) ==
PROVIDERS: PCP Nurse Practitioner Family; Visit Provider Naturopath
DX: E66.9 Obesity, unspecified (principal); R63.5 Abnormal weight gain; R00.2 Palpitations; U09.9 Post COVID-19 condition, unspecified; R29.818 Other symptoms and signs involving the nervous system; R53.83 Other fatigue; K21.9 Gastro-esophageal reflux disease without esophagitis; K29.70 Gastritis, unspecified, without bleeding; R63.0 Anorexia; B60.09 Other babesiosis; G31.84 Mild cognitive impairment of uncertain or unknown etiology; H91.91 Unspecified hearing loss, right ear; J32.9 Chronic sinusitis, unspecified; R06.83 Snoring
CPT/HCPCS: 36415; 80061; 82306; 83695; 84402; 84403; 82607; 82670; 83001; 83002; 83036; 84144; 84270; 84439; 84443; 84480; 84481; 84482; 86376; 86800

== ENCOUNTER 2023-02-03 08:27 | Emergency (ER) | payer BC, SELFPAY ==
[2023-02-03] VITALS (13 sets, daily range): BP systolic 105–160; BP diastolic 63–90; PULSE 57–93; RESP 15; TEMP 36.3–36.5; O2SAT 95–100
--- NOTE | 2023-02-03 08:46 | ED.GENADUL_ITS ---
Discharge Plan Disposition Patient Disposition: Home Condition: Stable Discharge Details Clinical Impression: Nausea & vomiting Primary Care Provider: Philip Cabral ED Provider: Anayeli Lay Home Meds and New Rx's Prescriptions: No Action midodrine 2.5 mg tablet 2.5 mg PO DIRECTED albuterol sulfate [Proventil HFA] 90 mcg/actuation HFA aerosol inhaler 2 puff inhalation Q6H PRN (Reason: shortness of breath or wheezing) Qty: 8.5 3RF [id number]-wihquij-lutein 0.4-162-18 mg Tablet 1 tab PO DAILY hydroxyzine HCl 50 mg tablet 50 mg PO Q6H PRN Patient Comments: TAKE ONE TABLET BY MOUTH FOUR TIMES A DAY NEEDED gabapentin 100 mg capsule 100 mg PO TID Discharge Instructions Instructions: Acute Nausea and Vomiting (ED) Additional Instructions: No evidence of acute abnormality on the CT exam today. PLease take the nausea medication as directed. Stay away from any foods that are fried spicy or dairy. Advance as tolerated with a bland diet over the next few days. Follow up with primary care provider in 3-5 days. Return to ED sooner if any worsening or concerns. Increase oral fluids. Please take Tylenol or Ibuprofen with food every 4-6 hours as needed for pain and swelling. Referrals: Philip Cabral, [employer]ICE [Primary Care Provider] - 3 days Discharge Data Discharge Date/Time-TO BE ENTERED AT DEPARTURE: 02/03/23 12:17 Medical Decision Making 47 year old female presents to the ED with a chief complaint of flushing, nausea, vomiting, mid abd pain, and multiple complaints. PMHx includes thyroid nodule, hiatal hernia, migraine, aortic valve regurgitation, PShx includes cholecystectomy, hysterectomy. Work up ordered including CBC, CMP, UA, UDS, TSH, NS, Zofran Patient feels much better upon re-evaluation. Will send home with Pilar WASSERMAN. She is requesting a Covid swab. Discussed CT results and lab results with patient who verbalized understanding. This text was generated using [employer] system, please disregard any oddities of phrase or misspellings. Imaging Data Radiologic Study: Imaging: CT Scan Radiologist's impression: CT CT ABDOMEN PELVIS W from 03/09/2022 FINDINGS: ABDOMEN and PELVIS: Lung Bases: No acute findings. Liver: Normal density. No measurable mass. Gallbladder and biliary tract: Status post cholecystectomy. No radiodense calculus or dilation. Pancreas: Normal density. No abnormal calcifications or inflammatory process. No evidence of mass. Spleen: Normal. Kidneys: Normal size, contour and axis. No radiodense stones. No obstructive uropathy. No suspicious masses seen. Adrenal glands: No masses seen. Vasculature: Abdominal aorta non-dilated. Soft tissues: Unremarkable. Bladder: No gross wall thickening. No calculi.No focal mass. Bowel:: Nearly empty of stool. No abnormal wall thickening or dilatation. No obstruction. Small bowel and stomach unremarkable. Appendix normal. Peritoneal cavity: No ascites. No focal collection or mesenteric inflammatory response. Bones: Unremarkable for age. Reproductive organs: Status post hysterectomy. Lymph nodes: Unremarkable. IMPRESSION:: Unremarkable CT scan of the abdomen and pelvis. Lab Data Lab results reviewed: Yes I reviewed the patient's lab results. Labs: Laboratory Tests Range/Units 02/03/23 02/03/23 02/03/23 08:48 08:49 09:03 WBC (4.4-10.8) 10^3/uL 6.02 RBC (3.93-5.22) 10^6/uL 4.55 Hgb (11.2-15.7) g/dL 13.7 Hct (36.0-46.0) % 40.1 MCV (80-95) fL 88 MCH (27.0-33.0) pg 30.1 MCHC (32.0-36.0) % 34.2 RDW (11.7-14.6) % 11.7 Plt Count (130-400) 10^3/uL 261 MPV (8.0-11.0) fL 10.6 Immature Gran % 0.3 Neutrophils % 68.7 Lymphocytes % 21.1 Monocytes % 7.1 Eosinophils % 2.3 Basophils % 0.5 Nucleated RBC % (0.0-0.3) % 0.0 Absolute Neutrophils (1.2-6.7) 10^3/uL 4.13 Absolute Lymphocytes (1.2-3.4) 10^3/uL 1.27 Absolute Monocytes (0.1-0.8) 10^3/uL 0.43 Absolute Eosinophils (0.0-0.7) 10^3/uL 0.14 Absolute Basophils (0.0-0.2) 10^3/uL 0.03 Sodium (136-145) mmol/L 137 Potassium (3.5-5.1) mmol/L 3.7 Chloride (98-107) mmol/L 105 Carbon Dioxide (21.0-32.0) mmol/L 23.7 Anion Gap (3-11) mmol/L 8.3 BUN (7-18) mg/dL 10 Creatinine (0.55-1.02) mg/dL 1.1 H Est GFR (CKD-EPI 2020) (mL/min/1.73m2) 61.98 Glucose (74-106) mg/dL 93 Calcium (8.5-10.1) mg/dL 9.5 Magnesium (1.8-2.4) mg/dL 2.0 Total Bilirubin (0.2-1.0) mg/dL 0.6 AST (15-37) U/L 21 ALT (14-59) U/L 35 Alkaline Phosphatase (46-116) U/L 72 Total Protein (6.4-8.2) g/dL 7.8 Albumin (3.4-5.0) g/dL 4.0 Lipase (16-77) U/L 35 TSH Cancelled 2.48 Urine Color (Yellow) Yellow Urine Clarity (Clear) Clear Urine pH (5-8) 6.0 Ur Specific [place] (1.005-1.025) 1.010 Urine Protein (Negative) mg/dL Negative Urine Ketones (Negative) mg/dL Negative Urine Blood (Negative) Negative Urine Nitrite (Negative) Negative Urine Bilirubin (Negative) Negative Urine Urobilinogen (Up to 0.2) mg/dL 0.2 Ur Leukocyte Esterase (Negative) Negative Urine Glucose (Negative) mg/dL Negative Urine Opiates Screen (Negative) Negative Urine Methadone Screen (Negative) Negative Ur Barbiturates Screen (Negative) Negative Ur Tricyclics Screen (Negative) Negative Ur Amphetamines Screen (Negative) Negative U Benzodiazepines Scrn (Negative) Negative Urine Cocaine Screen (Negative) Negative Ur THC Screen (Negative) Positive A COVID-19 Source Range/Units 02/03/23 11:09 WBC (4.4-10.8) 10^3/uL RBC (3.93-5.22) 10^6/uL Hgb (11.2-15.7) g/dL Hct (36.0-46.0) % MCV (80-95) fL MCH (27.0-33.0) pg MCHC (32.0-36.0) % RDW (11.7-14.6) % Plt Count (130-400) 10^3/uL MPV (8.0-11.0) fL Immature Gran % Neutrophils % Lymphocytes % Monocytes % Eosinophils % Basophils % Nucleated RBC % (0.0-0.3) % Absolute Neutrophils (1.2-6.7) 10^3/uL Absolute Lymphocytes (1.2-3.4) 10^3/uL Absolute Monocytes (0.1-0.8) 10^3/uL Absolute Eosinophils (0.0-0.7) 10^3/uL Absolute Basophils (0.0-0.2) 10^3/uL Sodium (136-145) mmol/L Potassium (3.5-5.1) mmol/L Chloride (98-107) mmol/L Carbon Dioxide (21.0-32.0) mmol/L Anion Gap (3-11) mmol/L BUN (7-18) mg/dL Creatinine (0.55-1.02) mg/dL Est GFR (CKD-EPI 2020) (mL/min/1.73m2) Glucose (74-106) mg/dL Calcium (8.5-10.1) mg/dL Magnesium (1.8-2.4) mg/dL Total Bilirubin (0.2-1.0) mg/dL AST (15-37) U/L ALT (14-59) U/L Alkaline Phosphatase (46-116) U/L Total Protein (6.4-8.2) g/dL Albumin (3.4-5.0) g/dL Lipase (16-77) U/L TSH Urine Color (Yellow) Urine Clarity (Clear) Urine pH (5-8) Ur Specific [place] (1.005-1.025) Urine Protein (Negative) mg/dL Urine Ketones (Negative) mg/dL Urine Blood (Negative) Urine Nitrite (Negative) Urine Bilirubin (Negative) Urine Urobilinogen (Up to 0.2) mg/dL Ur Leukocyte Esterase (Negative) Urine Glucose (Negative) mg/dL Urine Opiates Screen (Negative) Urine Methadone Screen (Negative) Ur Barbiturates Screen (Negative) Ur Tricyclics Screen (Negative) Ur Amphetamines Screen (Negative) U Benzodiazepines Scrn (Negative) Urine Cocaine Screen (Negative) Ur THC Screen (Negative) COVID-19 Source Nasal/Nares HPI General Mode of arrival: ambulatory . Date/Time Provider Initiated Documentation: 02/03/23 08:34 . Limitations to Documentation: no limitations . Information obtained by: patient, RN notes reviewed and old records reviewed . HPI Narrative: 47 year old female presents to the ED with a chief complaint of flushing, nausea, vomiting, mid abd pain, and multiple complaints. PMHx includes thyroid nodule, hiatal hernia, migraine, aortic valve regurgitation, PShx includes cholecystectomy, hysterectomy. Related Data Home Medications Medication Instructions Recorded Confirmed [id number] 0.4 mg-calcium 162 1 tab PO DAILY 05/15/20 02/03/23 mg-iron 18 vu-[id number]-wewvyo tablet gabapentin 100 mg capsule 100 mg PO TID 11/17/21 02/03/23 albuterol sulfate 90 mcg/actuation 2 puff inhalation Q6H PRN 08/23/22 02/03/23 aerosol inhaler (Proventil HFA) shortness of breath or wheezing #8.5 grams midodrine 2.5 mg tablet 2.5 mg PO DIRECTED 01/01/23 02/03/23 hydroxyzine HCl 50 mg tablet 50 mg PO Q6H PRN 02/03/23 02/03/23 Previous Rx's Medication Instructions Recorded albuterol sulfate 90 mcg/actuation 2 puff inhalation Q6H PRN 08/23/22 aerosol inhaler (Proventil HFA) shortness of breath or wheezing #8.5 grams Allergies Allergy/AdvReac Type Severity Reaction Status Date / Time gluten Allergy Unknown Unverified 02/03/23 08:34 lamotrigine [From Lamictal] AdvReac Severe Psychosis Verified 02/03/23 08:34 topiramate [From Topamax] AdvReac Severe Other (See Verified 02/03/23 08:34 Comment) trazodone AdvReac Severe Headache Verified 02/03/23 08:34 promethazine AdvReac Intermediate made her Verified 02/03/23 08:34 loopy, outof it Sulfa (Sulfonamide AdvReac Intermediate vomiting Verified 02/03/23 08:34 Antibiotics) Lobster Allergy Uncoded 02/03/23 08:34 antidepressants AdvReac Uncoded 02/03/23 08:34 General Stated Complaint: Nausea/Vomit/Diar ELMA: 3 Review of Systems All systems reviewed & are unremarkable except as noted in HPI and below Constitutional Constitutional: Reports as per HPI Gastrointestinal Gastrointestinal: Reports abdominal pain, Reports nausea and Reports vomiting PFSH All Active Problems (Updated 02/03/23 @ 11:30 by Anayeli Lay NP) Nausea & vomiting (Acute) External ear ulcer (Acute) INDER (obstructive sleep apnea) (Chronic) Pt states she does not use device, sleeps propped up Chronic GERD (Acute) Lyme disease (Acute) D Lo homeopath treats her. Joint pain (Acute) Myalgia (Acute) 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 (Acute) Referred otalgia of both ears (Acute) Imbalance (Acute) Sensorineural hearing loss, unilateral, right ear, with unrestricted hearing on the contralateral side (Acute) Perimenopause (Acute) Dyspareunia (Acute) Anxiety and depression (Chronic) Irritable bowel syndrome with diarrhea (Acute) 06/25/17 [facility] gastro 10/27/19 [facility] Gastro Medical History Neck mass Chest wall pain Eye anomaly Thyroid nodule Hip pain COVID Lyme disease Diarrhea Nephrolithiasis Schatzki's ring 12/2019 dilation of, [facility] Hiatal hernia 12/20/19 2 cm GI [facility] Urinary retention Gait instability Paresthesias Migraine headache without aura Dysphagia, pharyngeal phase 11/15/19 Dr Short - barium swallow ordered Medication reaction Possibly 2' lamotrigine & topiramate ? Low back pain Major depressive disorder, recurrent severe without psychotic features Weight gain Personal history of cervical dysplasia (12/08/15) 2009 [facility] - LEEP Rx Aortic valve regurgitation (03/19/13) ECHO 12/18/2001 Anbx Prophylaxis Surgical History History of cholecystectomy Hx of cholecystectomy H/O esophagogastroduodenoscopy 12/20/19 Dr Phil Reynaga 2 cm hiatal hernia S/P laparoscopic assisted vaginal hysterectomy ([facility]) History of laparoscopic-assisted vaginal hysterectomy Status post laparoscopic hysterectomy History of elbow surgery R elbow Ligation of fallopian tube 2002 or 2003 Cervical Procedure (~2008) LEEP Family History Father Unknown family medical history Mother Unknown family medical history Alcohol abuse Drug abuse Depression Stroke Son Depression treated with Vitamin D Diabetes Son Depression Social History Smoking/Tobacco Use Status: Never Second Hand Exposure: Yes Smoking risk assessment performed?: Yes Alcohol Intake: former Drug use: Daily Substance use type: marijuana Details: CBD oil BID Caregiver/Support person: No Household members: significant other Housing: house Number of Children: 2 Communication Needs: None Do you need help understanding health information?: Rarely 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 Pets and animals: Yes Pets and animals: cat(s) and dog(s) Sexually active: Yes Do you think of yourself as: straight/heterosexual Current gender identity: female What is your relationship status?: living with partner How often do you get together with friends or relatives?: twice per week How often do you attend presybeterian or buddhist services?: decline to answer Do you belong to any clubs or organized social groups?: no Panel score (0-1 are the most socially isolated patients): 1 What type of physical activity do you participate in: walking Nova/Yazidi: None Special nova needs: No Seatbelt use: always Helmet use: Yes Helmet use: always Drive intox or ride w/intox wedding transportation driver: No Firearms in home: Yes Firearms unloaded and locked: Yes Do you feel safe at home: Yes Do you feel safe in your relationship?: Yes Female Reproductive History Menstrual control method: permanent sterilization History History 3 Para 2 Hx # Term Pregnancies Multiple births Hx # Pregnancies Ectopic pregnancies AB induced Hx Number of Living Children AB spontaneous Exam Narrative Exam Narrative: Constitutional: Alert and oriented x3. Appears stated age. Obese body habitus. Head: Normocephalic, no trauma. Eyes: Pupils PERRL, Red reflex noted, EOM's intact. Eyelids symmetrical without lesions, discharge, or swelling. ENT: Bilateral TM's WNL, External ear normal to inspection, no mastoid TTP, swelling, or erythema, Nasal turbinates WNL, no nasal discharge. Normal dentition, Posterior pharynx WNL, no exudate. Chest: RRR, Normal S1, S2, distal pulses intact. Resp: Lungs clear to auscultation bilaterally, no wheezes, rales, or rhonchi. Abdomen: Soft, non-distended, Normoactive bowel sounds all 4 quads. Musculoskeletal: Normal gait, 5/5 strength to all four extremities. Skin: No suspicious rashes or lesions. Capillary refill less than 2 sec. Neurologic: Cranial nerves II-XII intact. Alert and oriented x 3. Motor: No deficits noted. Sensory: Intact bilaterally all 4 extremities. Reflexes: DTR's intact bilaterally.. Hematologic/Lymphatic: No ecchymosis, no lymphadenopathy. Course Vital Signs Vital signs: Vital Signs Temperature 36.3 C L 02/03/23 08:29 Pulse 93 H 02/03/23 08:29 Respiratory Rate 15 02/03/23 08:29 Blood Pressure 160/90 H 02/03/23 08:29 Pulse Oximetry 95 02/03/23 08:29 Temperature 36.3 C L 02/03/23 08:29 Temperature Source Oral 02/03/23 08:29 Pulse 93 H 02/03/23 08:29 Respiratory Rate 15 02/03/23 08:29 Respiratory Effort Normal 02/03/23 08:31 Blood Pressure 160/90 H 02/03/23 08:29 Blood Pressure Position Sitting 02/03/23 08:29 Pulse Oximetry 95 02/03/23 08:29 Oxygen Delivery Method Room Air 02/03/23 08:29 Oxygen Flow Rate 0 02/03/23 08:29 Pain Level 0 02/03/23 08:29
[2023-02-03 09:03] LABS: Abs Immature Grans 0.02 10^3/uL (0.0-0.06); Absolute Basophil Count 0.03 10^3/uL (0.0-0.2); Absolute Eosinophil Count 0.14 10^3/uL (0.0-0.7); Absolute Lymphocyte Count 1.27 10^3/uL (1.2-3.4); Absolute Monocyte Count 0.43 10^3/uL (0.1-0.8); Absolute Neutrophil Count 4.13 10^3/uL (1.2-6.7); Basophils % 0.5; Eosinophils % 2.3; HCT 40.1 % (36.0-46.0); HGB 13.7 g/dL (11.2-15.7); Immature Grans % 0.3; Lymphocytes % 21.1; MCH 30.1 pg (27.0-33.0); MCHC 34.2 % (32.0-36.0); MCV 88 fL (80-95); MPV 10.6 fL (8.0-11.0); Monocytes % 7.1; Neutrophils % 68.7; Platelet Count 261 10^3/uL (130-400); RBC 4.55 10^6/uL (3.93-5.22); RDW 11.7 % (11.7-14.6); RDW-SD 37.7 fL; WBC 6.02 10^3/uL (4.4-10.8)
[2023-02-03] MEDS: Ondansetron 4 MG/2 ML VIAL IVP (09:09)
[2023-02-03] MEDS: Normal Saline 1,000 ML 1000 ML IV (09:09)
[2023-02-03 09:21] LABS: Bilirubin Negative (Negative); Blood Negative (Negative); Clarity Clear (Clear); Glucose Negative (Negative); Ketones Negative (Negative); Leukocyte Esterase Negative (Negative); Nitrite Negative (Negative); Urobilinogen 0.2 mg/dL (Up to 0.2)
[2023-02-03 09:28] LABS: ALT 35 U/L (14-59); AST 21 U/L (15-37); Alkaline Phosphatase 72 U/L (46-116); Anion Gap 8.3 mmol/L (3-11); BUN 10 mg/dL (7-18); Bilirubin, Total 0.6 mg/dL (0.2-1.0); CO2 23.7 mmol/L (21.0-32.0); CREATININE 1.1 mg/dL (0.55-1.02); Calcium 9.5 mg/dL (8.5-10.1); Chloride 105 mmol/L (98-107); Estimated GFR 61.98 (mL/min/1.73m2); Glucose 93 mg/dL (74-106); Lipase 35 U/L (16-77); Potassium 3.7 mmol/L (3.5-5.1); Sodium 137 mmol/L (136-145); TSH (W/Ref FT4) 2.48 uIU/mL (0.36-3.74); Total Protein 7.8 g/dL (6.4-8.2)
[2023-02-03 09:32] LABS: *AMPHETAMINES SCREEN URINE Negative (Negative); *BARBITURATES SCREEN URINE Negative (Negative); *BENZODIAZEPINES SCREEN URINE Negative (Negative); Cannabinoids THC Positive (Negative); Cocaine Screen,Urine Negative (Negative); METHADONE URINE SCREEN Negative (Negative); OPIATES URINE SCREEN Negative (Negative); Tricyclic Antidepressants Negative (Negative)
[2023-02-03] MEDS: Omnipaque 350 MG/ML 500 ML BTL-Imaging package 100 ML IJ (10:37)
[2023-02-03] MEDS: Normal Saline - Diluent 50 ML VIAL IJ (10:40)
--- NOTE | 2023-02-03 10:42 | DI.CT_ITS ---
Exam(s) CT ABDOMEN PELVIS W EXAM: CT ABDOMEN PELVIS W CLINICAL HISTORY: Abdominal pain, N/V. TECHNIQUE: Imaging Protocol: Axial computed tomography images with coronal and sagittal reformatted images were created and reviewed CONTRAST MATERIAL: Intravenous: Omnipaque 350 Contrast volume:100 ml Oral: no COMPARISON: CT CT THORAX CTA from 02/22/[address] ABDOMEN PELVIS W from 03/09/2022 FINDINGS: ABDOMEN and PELVIS: Lung Bases: No acute findings. Liver: Normal density. No measurable mass. Gallbladder and biliary tract: Status post cholecystectomy. No radiodense calculus or dilation. Pancreas: Normal density. No abnormal calcifications or inflammatory process. No evidence of mass. Spleen: Normal. Kidneys: Normal size, contour and axis. No radiodense stones. No obstructive uropathy. No suspicious masses seen. Adrenal glands: No masses seen. Vasculature: Abdominal aorta non-dilated. Soft tissues: Unremarkable. Bladder: No gross wall thickening. No calculi.No focal mass. Bowel:: Nearly empty of stool. No abnormal wall thickening or dilatation. No obstruction. Small b owel and stomach unremarkable. Appendix normal. Peritoneal cavity: No ascites. No focal collection or mesenteric inflammatory response. Bones: Unremarkable for age. Reproductive organs: Status post hysterectomy. Lymph nodes: Unremarkable. IMPRESSION:: Unremarkable CT scan of the abdomen and pelvis. RADIATION DOSE DELIVERED: Total DLP DATA REPOSITORY: All CT scans at this facility are submitted to the National Radiology Data Registry (NRDR) Dose Index Registry (DIR) with the [employer] (ACR). RADIATION OPTIMIZATION: All CT scans at this facility use at least one of these dose optimization te chniques: automated exposure control; mA and/or kV adjustment per patient size (includes targeted exa ms where dose is matched to clinical indication); or iterative reconstruction.
[2023-02-03 11:13] LABS: Source Nasal/Nares
[2023-02-03 11:46] LABS: COVID-19 PCR Negative (Negative)
[2023-02-03] MEDS: Ondansetron O.D.T. 4 MG TABEF, 3 TABS/BTL PO (12:17)
== END 2023-02-03 12:17 | disposition home or self-care (01) ==
PROVIDERS: Emergency Provider Registered Nurse Emergency; PCP Nurse Practitioner Family
DX: R11.2 Nausea with vomiting, unspecified (principal); R19.7 Diarrhea, unspecified; Z20.822 Contact with and (suspected) exposure to COVID-19
CPT/HCPCS: 80053; 80307; 83690; 87635; 96361; 96374; 99285; 74177; 81003; 83735; 84443; 85025; 99284; J2405

== ENCOUNTER 2023-03-18 14:44 | Outpatient (REF) | payer BC, SELFPAY ==
[2023-03-19 11:56] LABS: Campylobacter PCR Negative (Negative); Salmonella PCR Negative (Negative); Shiga Toxin PCR Negative (Negative); Shigella/Enteroinvasive Ecoli Negative (Negative)
== END 2023-03-18 14:45 | disposition home or self-care (01) ==
LOC: LBN 14:44
PROVIDERS: PCP Nurse Practitioner Family; Visit Provider Physician Assistant
DX: R19.7 Diarrhea, unspecified (principal); J02.9 Acute pharyngitis, unspecified
CPT/HCPCS: 87329; 87505; 87070; 87177

== ENCOUNTER 2023-03-19 12:39 | Emergency (ER) | payer BC, SELFPAY ==
[2023-03-19 12:49] VITALS: BP 123/85; PULSE 68; RESP 18; TEMP 36.6; O2SAT 97
[2023-03-19 14:01] VITALS: BP 123/85; PULSE 68; RESP 18; TEMP 36.6; O2SAT 97
--- NOTE | 2023-03-19 14:15 | DI.CT_ITS ---
Exam(s) CT ABDOMEN PELVIS W EXAM: CT ABDOMEN PELVIS W CLINICAL HISTORY: abd pain diarrhea TECHNIQUE: Imaging Protocol: Axial computed tomography images with coronal and sagittal reformatted images were created and reviewed CONTRAST MATERIAL: Intravenous: Omnipaque 350 Contrast volume:100 mL Oral: No COMPARISON: CT CT THORAX CTA from 02/22/[address] ABDOMEN PELVIS W from 03/09/[address] ABDOMEN PELVIS W from 02/03/2023 FINDINGS: ABDOMEN: Lung Bases: Normal where visualized. Liver: Normal density. Stable tiny hypodensities in the right lobe of the liver. They are too small for further characterization but have show no significant change compared to the prior examinations. Portal, Superior Mesenteric, and Splenic Veins: Unremarkable. Gallbladder and Biliary Tract: Status post cholecystectomy. No significant biliary ductal dilatation . Pancreas: Normal density, no abnormal calcifications or inflammatory process. Spleen: Normal. Adrenals: No masses seen. Kidneys: Normal size, contour and axis. No radiodense stones or obstructive uropathy. There is a stab le small cyst in the right kidney. No follow-up is recommended. Abdominal Aorta: Abdominal portion non-dilated. Bowel: No obstruction or bowel wall thickening. Appendix is unremarkable. Peritoneal Cavity: No ascites, collection or mesenteric inflammatory response. No free air. Lymph Nodes: Within normal limits. Bones: Within normal limits for the patient's age. Soft Tissues: Unremarkable. PELVIS: Bladder: Symmetric distention, no gross wall thickening. Reproductive Organs: Status post hysterectomy. Lymph Nodes: Within normal limits. Bones: Within normal limits for the patient's age. IMPRESSION: 1. No acute abdominal or pelvic process. 2. Findings were discussed with the emergency department at 4:30 p.m. on 03/19/2023. RADIATION DOSE DELIVERED: Total DLP DATA REPOSITORY: All CT scans at this facility are submitted to the National Radiology Data Registry (NRDR) Dose Index Registry (DIR) with the [employer] (ACR). RADIATION OPTIMIZATION: All CT scans at this facility use at least one of these dose optimization te chniques: automated exposure control; mA and/or kV adjustment per patient size (includes targeted exa ms where dose is matched to clinical indication); or iterative reconstruction.
[2023-03-19 14:36] LABS: Abs Immature Grans 0.01 10^3/uL (0.0-0.06); Absolute Basophil Count 0.04 10^3/uL (0.0-0.2); Absolute Eosinophil Count 0.21 10^3/uL (0.0-0.7); Absolute Monocyte Count 0.43 10^3/uL (0.1-0.8); Absolute Neutrophil Count 4.75 10^3/uL (1.2-6.7); Basophils % 0.5; Eosinophils % 2.9; HCT 37.2 % (36.0-46.0); HGB 12.9 g/dL (11.2-15.7); Immature Grans % 0.1; Lymphocytes % 25.9; MCH 30.1 pg (27.0-33.0); MCHC 34.7 % (32.0-36.0); MCV 87 fL (80-95); MPV 10.5 fL (8.0-11.0); Monocytes % 5.9; Neutrophils % 64.7; Platelet Count 253 10^3/uL (130-400); RBC 4.28 10^6/uL (3.93-5.22); RDW 11.6 % (11.7-14.6); RDW-SD 36.9 fL; WBC 7.34 10^3/uL (4.4-10.8)
--- NOTE | 2023-03-19 14:38 | ED.GENADUL_ITS ---
HPI General Stated Complaint: Abd Prob ELMA: 3 Date/Time Provider Initiated Documentation: 03/19/23 14:11. HPI Narrative: 39-year-old female presents with acute on chronic abdominal discomfort and diarrhea over the past several weeks. Feels lightheaded. Has been seen by her primary care physician recently. Related Data Home Medications Medication Instructions Recorded Confirmed [id number] 0.4 mg-calcium 162 1 tab PO DAILY 05/15/20 03/17/23 mg-iron 18 lb-vtruwnl-tfwfgx tablet gabapentin 100 mg capsule 100 mg PO TID 11/17/21 03/17/23 albuterol sulfate 90 mcg/actuation 2 puff inhalation Q6H PRN 08/23/22 03/17/23 aerosol inhaler (Proventil HFA) shortness of breath or wheezing #8.5 grams midodrine 2.5 mg tablet 2.5 mg PO DIRECTED 01/01/23 03/17/23 hydroxyzine HCl 50 mg tablet 50 mg PO Q6H PRN 02/03/23 03/17/23 ondansetron HCl 4 mg tablet 4 mg PO Q8H PRN nausea and 03/17/23 03/17/23 vomiting #10 tabs Previous Rx's Medication Instructions Recorded albuterol sulfate 90 mcg/actuation 2 puff inhalation Q6H PRN 08/23/22 aerosol inhaler (Proventil HFA) shortness of breath or wheezing #8.5 grams ondansetron HCl 4 mg tablet 4 mg PO Q8H PRN nausea and 03/17/23 vomiting #10 tabs Allergies Allergy/AdvReac Type Severity Reaction Status Date / Time gluten Allergy Unknown Unverified 02/03/23 08:34 lamotrigine [From Lamictal] AdvReac Severe Psychosis Verified 02/03/23 08:34 topiramate [From Topamax] AdvReac Severe Other (See Verified 02/03/23 08:34 Comment) trazodone AdvReac Severe Headache Verified 02/03/23 08:34 promethazine AdvReac Intermediate made her Verified 02/03/23 08:34 loopy, outof it Sulfa (Sulfonamide AdvReac Intermediate vomiting Verified 02/03/23 08:34 Antibiotics) Lobster Allergy Uncoded 02/03/23 08:34 antidepressants AdvReac Uncoded 02/03/23 08:34 Review of Systems Narrative: Review of Systems Constitutional: negative Eyes: negative ENT: negative Cardiovascular: negative Respiratory: negative Gastrointestinal: Abdominal pain, diarrhea : negative Musculoskeletal: negative Skin: negative Neurologic: negative Psych: negative PFSH All Active Problems (Updated 03/19/23 @ 17:33 by Jalil Guevara MD) Diarrhea (Acute) External ear ulcer (Acute) INDER (obstructive sleep apnea) (Chronic) Pt states she does not use device, sleeps propped up Chronic GERD (Acute) Lyme disease (Acute) [facility] home[facility] treats her. Joint pain (Acute) Myalgia (Acute) 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 (Acute) Referred otalgia of both ears (Acute) Imbalance (Acute) Sensorineural hearing loss, unilateral, right ear, with unrestricted hearing on the contralateral side (Acute) Perimenopause (Acute) Dyspareunia (Acute) Anxiety and depression (Chronic) Irritable bowel syndrome with diarrhea (Acute) 06/25/17 [facility] 10/27/19 [facility] Medical History Neck mass Chest wall pain Eye anomaly Thyroid nodule Hip pain COVID Lyme disease Diarrhea Nephrolithiasis Schatzki's ring 12/2019 dilation of, [facility] Hiatal hernia 12/20/19 2 cm GI [facility] Urinary retention Gait instability Paresthesias Migraine headache without aura Dysphagia, pharyngeal phase 11/15/19 Dr Short - barium swallow ordered Medication reaction Possibly 2' lamotrigine & topiramate ? Low back pain Major depressive disorder, recurrent severe without psychotic features Weight gain Personal history of cervical dysplasia (12/08/15) 2009 SEBASTIAN III - LEEP Rx Aortic valve regurgitation (03/19/13) ECHO 12/18/2001 Anbx Prophylaxis Surgical History History of cholecystectomy Hx of cholecystectomy H/O esophagogastroduodenoscopy 12/20/19 Dr Phil Reynaga 2 cm hiatal hernia S/P laparoscopic assisted vaginal hysterectomy (LAV[facility]) History of laparoscopic-assisted vaginal hysterectomy Status post laparoscopic hysterectomy History of elbow surgery R elbow Ligation of fallopian tube 2002 or 2004 Cervical Procedure (~2008) LEEP Family History Father Unknown family medical history Mother Unknown family medical history Alcohol abuse Drug abuse Depression Stroke Son Depression treated with Vitamin D Diabetes Son Depression Social History Smoking/Tobacco Use Status: Never Second Hand Exposure: Yes Smoking risk assessment performed?: Yes Alcohol Intake: former Drug use: Daily Substance use type: marijuana Details: CBD oil BID Caregiver/Support person: No Household members: significant other Housing: house Number of Children: 2 Communication Needs: None Do you need help understanding health information?: Rarely 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 Pets and animals: Yes Pets and animals: cat(s) and dog(s) Sexually active: Yes Do you think of yourself as: straight/heterosexual Current gender identity: female What is your relationship status?: living with partner How often do you get together with friends or relatives?: twice per week How often do you attend spiritism or pentecostalism services?: decline to answer Do you belong to any clubs or organized social groups?: no Panel score (0-1 are the most socially isolated patients): 1 What type of physical activity do you participate in: walking Nova/Advent: None Special nova needs: No Seatbelt use: always Helmet use: Yes Helmet use: always Drive intox or ride w/intox straddle truck driver: No Firearms in home: Yes Firearms unloaded and locked: Yes Do you feel safe at home: Yes Do you feel safe in your relationship?: Yes Female Reproductive History Menstrual control method: permanent sterilization History History 3 Para 2 Hx # Term Pregnancies Multiple births Hx # Pregnancies Ectopic pregnancies AB induced Hx Number of Living Children AB spontaneous Exam Narrative Exam Narrative: Physical Examination General: alert, awake, cooperative, resting comfortably, no acute distress HEENT: normocephalic, atraumatic; PERRL, EOM intact, conjunctiva normal; no nasal discharge; moist mucous membranes, oral and pharyngeal mucosa normal, tolerating secretions Neck: supple, trachea midline; full ROM Chest: normal to inspection Respiratory: normal respiratory effort, speaking in full sentences, clear to auscultation, no wheezing, rales or rhonchi Cardiac: regular rate, regular rhythm, S1S2 intact, no murmurs rubs or gallops GI: abdomen soft, non-tender, non-distended; no palpable mass or hepatosplenomegaly Skin: no lesions, rashes or trauma appreciated Neuro: AAOx3, normal speech, moving all extremities Psych: Appropriate mood and affect Course Vital Signs Vital signs: Vital Signs Temperature 36.6 C 03/19/23 12:49 Pulse 68 03/19/23 12:49 Respiratory Rate 18 03/19/23 12:49 Blood Pressure 123/85 03/19/23 12:49 Pulse Oximetry 97 03/19/23 12:49 Temperature 36.6 C 03/19/23 14:01 Temperature Source Oral 03/19/23 12:49 Pulse 68 03/19/23 14:01 Respiratory Rate 18 03/19/23 14:01 Respiratory Effort Normal 03/19/23 14:01 Blood Pressure 123/85 03/19/23 14:01 Blood Pressure Position Supine 03/19/23 14:01 Pulse Oximetry 97 03/19/23 14:01 Pain Level 3 03/19/23 12:49 Lab/Test Results Lab/Test Results: Laboratory Tests Range/Units 03/19/23 14:30 WBC (4.4-10.8) 10^3/uL 7.34 RBC (3.93-5.22) 10^6/uL 4.28 Hgb (11.2-15.7) g/dL 12.9 Hct (36.0-46.0) % 37.2 MCV (80-95) fL 87 MCH (27.0-33.0) pg 30.1 MCHC (32.0-36.0) % 34.7 RDW (11.7-14.6) % 11.6 L Plt Count (130-400) 10^3/uL 253 MPV (8.0-11.0) fL 10.5 Immature Gran % 0.1 Neutrophils % 64.7 Lymphocytes % 25.9 Monocytes % 5.9 Eosinophils % 2.9 Basophils % 0.5 Nucleated RBC % (0.0-0.3) % 0.0 Absolute Neutrophils (1.2-6.7) 10^3/uL 4.75 Absolute Lymphocytes (1.2-3.4) 10^3/uL 1.90 Absolute Monocytes (0.1-0.8) 10^3/uL 0.43 Absolute Eosinophils (0.0-0.7) 10^3/uL 0.21 Absolute Basophils (0.0-0.2) 10^3/uL 0.04 Medical Decision Making 39-year-old female presents with abdominal pain and diarrhea over the past week, seen by her primary care physician recently, prescribed medications that are not helping, patient is hemodynamically stable afebrile nontoxic nonperitoneal. No recent travel no recent antibiotic use no history of ulcerative colitis or Crohn's disease, patient has chronic Lyme and is sensitive to gluten. Consider gastroenteritis versus colitis versus foodborne illness versus ova/parasite versus C. difficile. Will obtain screening labs imaging, stool sample 17: 31 resting comfortably no acute distress. No diarrhea in department. Hemodynamically stable labs and imaging unremarkable. Patient to follow-up with GI and primary care physician. Given home care instructions and return precautions. Will be given 1 dose of loperamide for home. Quality:SDOH Health Related Social Needs: No Data to Display Discharge Plan Disposition Patient Disposition: Home Condition: Improving Discharge Details Chief Complaint: Abd Prob Clinical Impression: Diarrhea Primary Care Provider: Philip Cabral ED Provider: Jalil Guevara Home Meds and New Rx's Prescriptions: No Action midodrine 2.5 mg tablet 2.5 mg PO DIRECTED ondansetron HCl 4 mg tablet 4 mg PO Q8H PRN (Reason: nausea and vomiting) Qty: 10 0RF albuterol sulfate [Proventil HFA] 90 mcg/actuation HFA aerosol inhaler 2 puff inhalation Q6H PRN (Reason: shortness of breath or wheezing) Qty: 8.5 3RF iu-lyf-AG-Ty-Po-tuwfgvw-lutein 0.4-162-18 mg Tablet 1 tab PO DAILY hydroxyzine HCl 50 mg tablet 50 mg PO Q6H PRN Patient Comments: TAKE ONE TABLET BY MOUTH FOUR TIMES A DAY NEEDED gabapentin 100 mg capsule 100 mg PO TID Discharge Instructions Instructions: Acute Diarrhea (ED) Additional Instructions: Please follow-up with primary care physician and GI team. Return to the Emergency Department for any worsening symptoms.
[2023-03-19] MEDS: Ketorolac 15 MG/ML VIAL IVP (14:48)
[2023-03-19] MEDS: LORazepam 2 MG/ML VIAL 0.5 MG IVP (14:48)
[2023-03-19] MEDS: Ondansetron 4 MG/2 ML VIAL IVP (14:48)
[2023-03-19] MEDS: Normal Saline 1,000 ML 1000 ML IV (14:55)
[2023-03-19 15:02] LABS: ALT 32 U/L (14-59); AST 17 U/L (15-37); Albumin 3.7 g/dL (3.4-5.0); Alkaline Phosphatase 70 U/L (46-116); Anion Gap 7.1 mmol/L (3-11); BUN 12 mg/dL (7-18); Bilirubin, Total 0.5 mg/dL (0.2-1.0); CO2 25.9 mmol/L (21.0-32.0); CREATININE 1.1 mg/dL (0.55-1.02); Calcium 9.3 mg/dL (8.5-10.1); Chloride 105 mmol/L (98-107); Estimated GFR 61.98 (mL/min/1.73m2); Glucose 98 mg/dL (74-106); Lipase 31 U/L (16-77); Potassium 3.5 mmol/L (3.5-5.1); Sodium 138 mmol/L (136-145); TSH (W/Ref FT4) 1.83 uIU/mL (0.36-3.74); Total Protein 7.2 g/dL (6.4-8.2)
[2023-03-19] MEDS: Normal Saline - Diluent 50 ML VIAL IJ (16:05)
[2023-03-19] MEDS: Omnipaque 350 MG/ML 100 ML BTL IJ (16:06)
[2023-03-19] MEDS: Loperamide 2 MG CAP 4 MG PO (17:41)
== END 2023-03-19 17:42 | disposition home or self-care (01) ==
PROVIDERS: Emergency Provider Emergency Medicine; PCP Nurse Practitioner Family
DX: R19.7 Diarrhea, unspecified (principal); R10.9 Unspecified abdominal pain; R11.10 Vomiting, unspecified; R11.0 Nausea
CPT/HCPCS: 80053; 83690; 96361; 96374; 96375; 99285; 74177; 84443; 85025; 99283; J1885; J2060; J2405; J3490

== ENCOUNTER 2023-04-15 02:21 | Outpatient (CLI) | payer BC, SELFPAY ==
[2023-04-15 08:55] LABS: FREE T4 0.97 ng/dL (0.76-1.46); TSH 1.85 uIU/mL (0.36-3.74)
[2023-04-15 17:45] LABS: T3,Free 4.3 pg/mL (2.8-5.3)
[2023-04-15 17:59] LABS: T3, Total 223 ng/dL (97-169)
[2023-04-15 19:31] LABS: Thyroglobulin Antibody 234 U/mL (<=60); Thyroperoxidase Antibody <28 U/mL (<=60)
== END 2023-04-15 02:22 | disposition home or self-care (01) ==
PROVIDERS: PCP Nurse Practitioner Family; Visit Provider Naturopath
DX: E06.3 Autoimmune thyroiditis (principal); R53.83 Other fatigue; R00.2 Palpitations; K21.9 Gastro-esophageal reflux disease without esophagitis; K29.70 Gastritis, unspecified, without bleeding; E66.8 Other obesity
CPT/HCPCS: 36415; 82533; 84439; 84443; 84480; 84481; 86376; 86800

== ENCOUNTER → 2023-05-20 01:02 | Outpatient (CLI) | payer BC, SELFPAY ==
--- NOTE | 2023-05-20 08:00 | DI.MAMMO_ITS ---
Exam(s) MAMMO SCREENING EXAM: MAMMO SCREENING CLINICAL HISTORY: screening,z12.39 TECHNIQUE: Bilateral full field digital CC and MLO mammographic images were obtained with 3D tomosyn thesis and utilizing computer aided detection (CAD). COMPARISON: Available for comparison. FINDINGS: Masses/Architectural Distortion: Stable nodules are seen in the left breast. No new nodules are pres ent. No areas of architectural distortion are seen. Microcalcifications: No suspicious pleomorphic-type are seen. Skin Thickening/Nipple Retraction: None. IMPRESSION: 1. No significant interval change with no specific features of malignancy noted. 2. Unless there is more urgent need, screening mammography is recommended, as per [place] [employer] guidelines. BI-RADS Category 2 - Benign Findings Breast Density - Category B - Scattered areas of fibroglandular density Breast density category C or D implies that the patient has dense breast tissue. Dense breast tissue is very common and is not abnormal but dense breast tissue can make it harder to find cancer on a ma mmogram. Also, dense breast tissue may increase their breast cancer risk. This information about the result of the mammogram report was provided to the patient to raise their awareness. Use this report when you speak with the patient about their risks for breast cancer, which includes their family hist ory. At that time, you may recommend for more screening tests (Ultrasound or MRI) as they might be us eful based on their risk. A negative radiographic report should not delay biopsy if a dominant or clinically suspicious mass is present. Up to ten percent of cancers are not identified on mammography. A negative report may reinforce clinical impression. Adenosis and dense breasts may obscure an underlying neoplasm. False positive reports average 6 to 10%. Patient will receive a letter notifying them of these results.
== END ==
PROVIDERS: PCP Nurse Practitioner Family; Visit Provider Nurse Practitioner Family
DX: Z12.31 Encounter for screening mammogram for malignant neoplasm of breast (principal)
CPT/HCPCS: 77063; 77067

== ENCOUNTER 2023-06-10 05:20 | Outpatient (CLI) | payer BC, SELFPAY ==
[2023-06-10 08:49] LABS: FREE T4 0.88 ng/dL (0.76-1.46)
[2023-06-10 17:54] LABS: T3,Free 4.2 pg/mL (2.8-5.3)
[2023-06-10 18:09] LABS: T3, Total 241 ng/dL (97-169)
[2023-06-10 19:45] LABS: Thyroglobulin Antibody 225 U/mL (<=60); Thyroperoxidase Antibody 33 U/mL (<=60)
[2023-06-12 16:51] LABS: Thyroid Stimulating Immunoglob <1.0 TSI index (<=1.3)
== END 2023-06-10 05:21 | disposition home or self-care (01) ==
PROVIDERS: PCP Nurse Practitioner Family; Visit Provider Naturopath
DX: K21.9 Gastro-esophageal reflux disease without esophagitis; J06.9 Acute upper respiratory infection, unspecified; R53.83 Other fatigue
CPT/HCPCS: 36415; 80061; 82306; 83695; 84402; 84403; 86376; 82607; 82670; 83001; 83002; 83036; 84144; 84270; 84439; 84443; 84445; 84480; 84481; 84482

== ENCOUNTER → 2023-07-29 15:47 | Outpatient (CLI) | payer BC, SELFPAY ==
--- NOTE | 2023-07-29 15:30 | DI.RAD_ITS ---
Exam(s) XR WRIST LT COMP NAVICULAR EXAM: XR WRIST LT COMP NAVICULAR CLINICAL HISTORY: wrist pain, left, M25.532. TECHNIQUE: 2D digital imaging was performed. COMPARISON: No exams were available for comparison FINDINGS: Four views. No evidence of fracture or dislocation nor significant ulnar variance. Bone density normal. No osse ous lesions. Scaphoid and scapholunate distance normal. IMPRESSION: No fractures. No acute osseous findings. DATA REPOSITORY: RADIATION DOSE DELIVERED:
== END ==
PROVIDERS: PCP Nurse Practitioner Family; Visit Provider Physician Assistant
DX: M25.532 Pain in left wrist (principal)
CPT/HCPCS: 73110

== ENCOUNTER 2023-09-22 03:26 | Outpatient (CLI) | payer BC, SELFPAY ==
[2023-09-22 07:43] LABS: Hemoglobin A1C 5.2 % (<5.7)
[2023-09-22 08:38] LABS: Calculated LDL 110 mg/dL (<100); Cholesterol 174 mg/dL (<200); HDL Cholesterol 49 mg/dL (40-60); Triglyceride 77 mg/dL (<150)
== END 2023-09-22 03:27 | disposition home or self-care (01) ==
PROVIDERS: PCP Nurse Practitioner Family; Visit Provider Nurse Practitioner Family
DX: Z13.1 Encounter for screening for diabetes mellitus (principal); Z13.220 Encounter for screening for lipoid disorders
CPT/HCPCS: 36415; 80061; 83036

== ENCOUNTER 2023-10-17 02:12 | Outpatient (CLI) | payer BC, SELFPAY ==
[2023-10-17 08:23] LABS: FREE T4 0.76 ng/dL (0.76-1.46)
[2023-10-17 18:01] LABS: T3,Free 3.1 pg/mL (2.8-5.3)
[2023-10-17 18:15] LABS: T3, Total 182 ng/dL (97-169)
[2023-10-17 19:01] LABS: Thyroglobulin Antibody 174 U/mL (<=60); Thyroperoxidase Antibody <28 U/mL (<=60)
[2023-10-22 19:24] LABS: Thyroid Stimulating Immunoglob <1.0 TSI index (<=1.3)
== END 2023-10-17 02:13 | disposition home or self-care (01) ==
PROVIDERS: PCP Nurse Practitioner Family; Visit Provider Naturopath
DX: A09 Infectious gastroenteritis and colitis, unspecified (principal); K21.9 Gastro-esophageal reflux disease without esophagitis; T50.905A Adverse effect of unspecified drugs, medicaments and biological substances, initial encounter; J06.9 Acute upper respiratory infection, unspecified; L98.9 Disorder of the skin and subcutaneous tissue, unspecified; R10.9 Unspecified abdominal pain
CPT/HCPCS: 36415; 86376; 86900; 86901; 84439; 84443; 84445; 84480; 84481

== ENCOUNTER 2023-10-27 03:37 | Outpatient (CLI) | payer BC, SELFPAY ==
[2023-10-28 21:26] LABS: Estradiol 70 pg/mL (See Note); Progesterone 0.6 ng/mL (See Table)
[2023-10-28 23:22] LABS: FSH 5.5 mIU/mL (See Note); LH 3.4 mIU/mL (See Note); Sex Hormone Binding Globulin 46.2 nmol/L (See Note)
[2023-11-05 16:31] LABS: Dehydroepiandrosterone (DHEA) 4.3 ng/mL (<8.0)
[2023-11-13 16:01] LABS: Testosterone, Free 0.39 ng/dL (<0.13-0.95); Testosterone, Total 21 ng/dL (8-60)
== END 2023-10-27 03:38 | disposition home or self-care (01) ==
PROVIDERS: PCP Nurse Practitioner Family; Visit Provider Naturopath
DX: A09 Infectious gastroenteritis and colitis, unspecified (principal); B37.82 Candidal enteritis; E06.3 Autoimmune thyroiditis; E66.9 Obesity, unspecified; I95.1 Orthostatic hypotension; K21.9 Gastro-esophageal reflux disease without esophagitis; K29.70 Gastritis, unspecified, without bleeding; N95.1 Menopausal and female climacteric states; R29.818 Other symptoms and signs involving the nervous system; T50.905A Adverse effect of unspecified drugs, medicaments and biological substances, initial encounter; G47.00 Insomnia, unspecified; J06.9 Acute upper respiratory infection, unspecified; L98.9 Disorder of the skin and subcutaneous tissue, unspecified; R63.0 Anorexia; R63.5 Abnormal weight gain; R68.82 Decreased libido; R10.9 Unspecified abdominal pain; R53.83 Other fatigue; B60.09 Other babesiosis; G31.84 Mild cognitive impairment of uncertain or unknown etiology; K20.0 Eosinophilic esophagitis; R00.2 Palpitations; H91.91 Unspecified hearing loss, right ear; J32.9 Chronic sinusitis, unspecified; R06.83 Snoring; Z73.6 Limitation of activities due to disability; F41.1 Generalized anxiety disorder; L70.9 Acne, unspecified; U09.9 Post COVID-19 condition, unspecified; G93.32 Myalgic encephalomyelitis/chronic fatigue syndrome; Q79.62 Hypermobile Ehlers-Danlos syndrome
CPT/HCPCS: 36415; 84402; 84403; 84410; 82626; 82670; 83001; 83002; 84144; 84270

== ENCOUNTER 2023-11-12 12:24 | Day surgery (SDC) | payer BC, SELFPAY ==
--- NOTE | 2023-11-12 09:59 | W.PM.DSUDISC ---
Date of service: 11/12/23 Time of Service: 09:59 Discharge Plan Disposition Patient Disposition: Home Condition: Good Discharge Details Reason For Visit: Excision L Gangion Cyst Attending Provider: Patrice Ahn Primary Care Provider: Philip Cabral Home Meds and New Rx's Prescriptions: New acetaminophen 500 mg tablet 1,000 mg PO TID Qty: 90 0RF hydrocodone-acetaminophen 5-325 mg tablet 1 tab PO Q6H PRN (Reason: pain) Qty: 4 0RF ibuprofen 600 mg tablet 600 mg PO TID PRN (Reason: pain) Qty: 90 0RF Continued midodrine 2.5 mg tablet 2.5 mg PO DIRECTED ondansetron HCl 4 mg tablet 4 mg PO Q8H PRN (Reason: nausea and vomiting) Qty: 10 0RF nystatin 500,000 unit tablet PO Patient Comments: TAKE ONE TABLET BY MOUTH TWICE A DAY methimazole 5 mg tablet 5 mg PO DAILY Patient Comments: TAKE ONE TABLET BY MOUTH DAILY budesonide-formoterol [Symbicort] 160-4.5 mcg/actuation HFA aerosol inhaler 1 inh inhalation DAILY PRN Patient Comments: INHALE ONE PUFF BY MOUTH EVERY 6 HOURS NEEDED FOR WHEEZING OR FOR SHORTNESS OF BREATH. DO NOT EXCEED 6 PUFF IN 24 HOURS albuterol sulfate [Proventil HFA] 90 mcg/actuation HFA aerosol inhaler 2 puff inhalation Q6H PRN (Reason: shortness of breath or wheezing) Qty: 8.5 3RF fexofenadine [[facility] Allergy] 180 mg tablet 180 mg PO DAILY hm-dxw-PJ-Xz-Wr-roallng-lutein 0.4-162-18 mg Tablet 1 tab PO DAILY hydroxyzine HCl 50 mg tablet 50 mg PO Q6H Patient Comments: TAKE ONE TABLET BY MOUTH FOUR TIMES A DAY NEEDED gabapentin 100 mg capsule 100 mg PO TID Discharge Instructions Additional Instructions: Sergio's Discharge Instructions Activity: You should keep the hand elevated as much as possible for the first few days. You may use your fingers as tolerated but avoid trying to do too much too soon. You may perform light activities with the splint in place. Dressing/Cast: Your splint should stay in place at all times. Do NOT get it wet. You may loosen the TANYA wrap if you feel it is too tight and then rewrap more loosely. Medications: - You should take Tylenol and Ibuprofen for baseline pain control. - You have Hydrocodone for breakthrough pain. - You may apply ice over the thumb. Follow-up: 7-10 days Referrals: Patrice Ahn MD [ [facility] STAFF PHYSICIAN] - Activity:: Elevate Remove Dressings/Wound Care:: Do Not Remove Shower/Bathe:: Cover Diet:: As Tolerated Discharge Orders Discharge Orders: Discharge Order (Routine); Ordered 11/12/23 Ordered By: Dell Jimenez DS: Diagnosis Discharge Diagnosis (1) Ganglion cyst: Status: Acute
[2023-11-12 13:08] VITALS: BP 116/77; PULSE 83; RESP 20; TEMP 36.8; O2SAT 99
[2023-11-12] MEDS: Lactated Ringers 1,000 ML 80 ML IV (13:36)
--- NOTE | 2023-11-12 14:00 | HPE_ITS ---
Assessment and Plan Assessment and plan (1) Ganglion cyst: Status: Acute Assessment and plan: Chiquis is a 48-year-old female who has a dorsal wrist cyst on the left side which is causing her pain and dysfunction. She has been dealing for quite some time and would like it removed. She is here today for the excision of the cyst. I reviewed the surgery with her. I discussed risk to include bleeding, infection, pain, stiffness, recurrence, damage to nerves and vessels, damage to muscle and tendons. Despite these risk, she elects to proceed. History of Present Illness History of Present Illness Chief Complaint: Left dorsal wrist cyst Narrative: Chiquis is a 48-year-old female who have seen previously for a left dorsal wrist cyst. Please see the previous office note. She is here today for excision of the cyst. She denies any acute medical changes. Review of Systems All systems reviewed & are unremarkable except as noted in HPI and below PFSH All Active Problems Nasal vestibulitis (Acute) Ganglion cyst (Acute) Left dorsal wrist S/P Excision: 11/12/2023 External ear ulcer (Acute) Lyme disease (Acute) [facility] homeopath treats her. Myalgia (Acute) Joint pain (Acute) 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 (Acute) Referred otalgia of both ears (Acute) Imbalance (Acute) Sensorineural hearing loss, unilateral, right ear, with unrestricted hearing on the contralateral side (Acute) Perimenopause (Acute) Dyspareunia (Acute) Chronic GERD (Acute) INDER (obstructive sleep apnea) (Chronic) Pt states she does not use device, sleeps propped up Anxiety and depression (Chronic) Irritable bowel syndrome with diarrhea (Acute) 06/25/17 [facility] 10/27/19 [facility]astro Medical History Hyperthyroidism Mast cell activation syndrome POTS (postural orthostatic tachycardia syndrome) Neck mass Chest wall pain Eye anomaly Thyroid nodule Hip pain COVID Lyme disease Diarrhea Nephrolithiasis Schatzki's ring 12/2019 dilation of, [facility] GI Hiatal hernia 12/20/19 2 cm GI [facility] Urinary retention Gait instability r/t lyme Paresthesias Migraine headache without aura Dysphagia, pharyngeal phase 11/15/19 Dr Short - barium swallow ordered Medication reaction Possibly 2' lamotrigine & topiramate ? Low back pain Major depressive disorder, recurrent severe without psychotic features Weight gain Personal history of cervical dysplasia (12/08/15) 2009 SEBAST[facility] III - LEEP Rx Aortic valve regurgitation (03/19/13) ECHO 12/18/2001 Anbx Prophylaxis Surgical History History of cholecystectomy Hx of cholecystectomy H/O esophagogastroduodenoscopy 12/20/19 Dr Phil Reynaga 2 cm hiatal hernia S/P laparoscopic assisted vaginal hysterectomy (LAVH) History of laparoscopic-assisted vaginal hysterectomy Status post laparoscopic hysterectomy History of elbow surgery R elbow Ligation of fallopian tube 2002 or 2003 Cervical Procedure (~2008) LEEP Family History Father Unknown family medical history Mother Unknown family medical history Alcohol abuse Drug abuse Depression Stroke Son Depression treated with Vitamin D Diabetes Son Depression Social History Smoking/Tobacco Use Status: Never Second Hand Exposure: Yes Smoking risk assessment performed?: Yes Alcohol Intake: former Drug use: Daily Substance use type: marijuana Details: CBD oil BID Caregiver/Support person: No Household members: significant other Housing: house Number of Children: 2 Communication Needs: None Do you need help understanding health information?: Rarely 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 Pets and animals: Yes Pets and animals: cat(s) and dog(s) Sexually active: Yes Do you think of yourself as: straight/heterosexual Current gender identity: female What is your relationship status?: living with partner How often do you get together with friends or relatives?: twice per week How often do you attend christian or sabianist services?: decline to answer Do you belong to any clubs or organized social groups?: no Panel score (0-1 are the most socially isolated patients): 1 What type of physical activity do you participate in: walking Nova/Samaritan: None Special nova needs: No Seatbelt use: always Helmet use: Yes Helmet use: always Drive intox or ride w/intox spike driver: No Firearms in home: Yes Firearms unloaded and locked: Yes Do you feel safe at home: Yes Do you feel safe in your relationship?: Yes Female Reproductive History Menstrual control method: permanent sterilization History History 3 Para 2 Hx # Term Pregnancies Multiple births Hx # Pregnancies Ectopic pregnancies AB induced Hx Number of Living Children AB spontaneous Meds Allergies and Home Medications Allergies Allergy/AdvReac Type Severity Reaction Status Date / Time gluten Allergy Unknown throat Verified 11/12/23 13:16 swelling lamotrigine (From Lamictal) AdvReac Severe Psychosis Verified 11/12/23 13:16 topiramate (From Topamax) AdvReac Severe Other (See Verified 11/12/23 13:16 Comment) trazodone AdvReac Severe Headache Verified 11/12/23 13:16 promethazine AdvReac Intermediate made her Verified 11/12/23 13:16 loopy, outof it Sulfa (Sulfonamide AdvReac Intermediate vomiting Verified 11/12/23 13:16 Antibiotics) Lobster Allergy Anaphylaxis Uncoded 11/12/23 13:16 vitamin B AdvReac Mild very sick Uncoded 11/12/23 13:16 antidepressants AdvReac violently Uncoded 11/12/23 13:16 ill Home Medications ?Medication ?Instructions ?Recorded ?Confirmed ?Type sxxkrfuv-gaf-SI 0.4 mg-calcium 162 1 tab PO DAILY 05/15/20 11/12/23 History mg-iron 18 nf-tdiqnlo-hijtse tablet gabapentin 100 mg capsule 100 mg PO TID 11/17/21 11/12/23 History midodrine 2.5 mg tablet 2.5 mg PO DIRECTED 01/01/23 11/12/23 History hydroxyzine HCl 50 mg tablet 50 mg PO Q6H 02/03/23 11/12/23 History ondansetron HCl 4 mg tablet 4 mg PO Q8H PRN nausea and 03/17/23 11/12/23 Rx vomiting #10 tabs albuterol sulfate 90 mcg/actuation 2 puff inhalation Q6H PRN 07/09/23 11/12/23 Rx aerosol inhaler (Proventil HFA) shortness of breath or wheezing #8.5 grams budesonide-formoterol HFA 160 1 inh inhalation DAILY PRN 07/09/23 11/12/23 History mcg-4.5 mcg/actuation aerosol inhaler (Symbicort) methimazole 5 mg tablet 5 mg PO DAILY 07/09/23 11/12/23 History nystatin 500,000 unit tablet unit PO 07/09/23 08/18/23 History fexofenadine 180 mg tablet 180 mg PO DAILY 09/08/23 11/12/23 History ([facility] Allergy) acetaminophen 500 mg tablet 1,000 mg (2 x 500 mg) PO TID #90 11/12/23 Rx tabs hydrocodone 5 mg-acetaminophen 325 1 tab PO Q6H PRN pain #4 tabs 11/12/23 Rx mg tablet ibuprofen 600 mg tablet 600 mg PO TID PRN pain #90 tabs 11/12/23 Rx Exam Const General: cooperative, healthy appearing, comfortable and no acute distress Resp Effort & Inspection: normal respiratory effort Cardio Rate: regular rate Rhythm: regular rhythm Results Last Vital Signs Temp 36.8 C 11/12/23 13:08 Pulse 83 11/12/23 13:08 Resp 20 11/12/23 13:08 BP 116/77 11/12/23 13:08 Pulse Ox 99 11/12/23 13:08
--- NOTE | 2023-11-12 14:13 | ANES.PREOP_ITS ---
General Info Date of Service Date Performed: 11/12/23 Height: 5 ft 5 in Weight: 87.4 kg Body Mass Index (BMI): 32.1 Surgical Procedure: Operation Date: 11/12/23 14:40 Proposed Procedure Side Surgeon p Wrist Cyst Excision Left Patrice Ahn MD Meds Allergies and Home Medications Allergies Allergy/AdvReac Type Severity Reaction Status Date / Time gluten Allergy Unknown throat Verified 11/12/23 13:16 swelling lamotrigine (From Lamictal) AdvReac Severe Psychosis Verified 11/12/23 13:16 topiramate (From Topamax) AdvReac Severe Other (See Verified 11/12/23 13:16 Comment) trazodone AdvReac Severe Headache Verified 11/12/23 13:16 promethazine AdvReac Intermediate made her Verified 11/12/23 13:16 loopy, outof it Sulfa (Sulfonamide AdvReac Intermediate vomiting Verified 11/12/23 13:16 Antibiotics) Lobster Allergy Anaphylaxis Uncoded 11/12/23 13:16 vitamin B AdvReac Mild very sick Uncoded 11/12/23 13:16 antidepressants AdvReac violently Uncoded 11/12/23 13:16 ill Home Medication ?Medication ?Instructions ?Recorded [id number] 0.4 mg-calcium 162 1 tab PO DAILY 05/15/20 mg-iron 18 mu-lwislml-dvvvys tablet gabapentin 100 mg capsule 100 mg PO TID 11/17/21 midodrine 2.5 mg tablet 2.5 mg PO DIRECTED 01/01/23 hydroxyzine HCl 50 mg tablet 50 mg PO Q6H 02/03/23 ondansetron HCl 4 mg tablet 4 mg PO Q8H PRN nausea and 03/17/23 vomiting #10 tabs albuterol sulfate 90 mcg/actuation 2 puff inhalation Q6H PRN 07/09/23 aerosol inhaler (Proventil HFA) shortness of breath or wheezing #8.5 grams budesonide-formoterol HFA 160 1 inh inhalation DAILY PRN 07/09/23 mcg-4.5 mcg/actuation aerosol inhaler (Symbicort) methimazole 5 mg tablet 5 mg PO DAILY 07/09/23 nystatin 500,000 unit tablet unit PO 07/09/23 fexofenadine 180 mg tablet 180 mg PO DAILY 09/08/23 ([facility]) acetaminophen 500 mg tablet 1,000 mg (2 x 500 mg) PO TID #90 11/12/23 tabs hydrocodone 5 mg-acetaminophen 325 1 tab PO Q6H PRN pain #4 tabs 11/12/23 mg tablet ibuprofen 600 mg tablet 600 mg PO TID PRN pain #90 tabs 11/12/23 Current Visit Medications: Current Medications Generic Name Dose Route Start Last Admin Trade Name Octavio PRN Reason Stop Dose Admin Acetaminophen 650 mg 11/12/23 09:58 Acetaminophen 325 Mg Tab PO 12/12/23 09:57 Q4H PRN PRN Hydrocodone Bitart/Acetaminophen 0 tab 11/12/23 09:58 Hydrocodone 5/Acetaminophen 325 Tab PO 12/12/23 09:57 Q3H PRN PRN Pain Ringer's Solution 1,000 mls @ 80 mls/hr 11/12/23 06:00 11/12/23 13:36 IV 11/12/23 23:59 80 mls/hr INFUSION KENYA Administration Cefazolin Sodium/Dextrose 2 gm in 50 mls @ 100 mls/hr 11/12/23 06:00 Ancef Duplex IVPB 11/12/23 23:59 PREOP KENYA IV Miscellaneous Supplies 1 each 11/12/23 06:00 Iv Access IV 11/12/23 23:59 DIRECTED KENYA Sodium Chloride 0 ml 11/12/23 06:00 Normal Saline Flush 10 Ml Syr IV 11/12/23 23:59 PRN PRN Sodium Chloride 0 ml 11/12/23 06:00 Normal Saline 10 Ml Vial IJ 11/12/23 23:59 DIRECTED PRN Sterile Water 0 ml 11/12/23 06:00 Water,Injection,Sterile 10 Ml Vial IJ 11/12/23 23:59 DIRECTED PRN PFSH Active Problems Active Problems: Problem Status Onset Code Nasal vestibulitis Acute J34.89 Ganglion cyst Acute M67.40 External ear ulcer Acute L98.499 Lyme disease Acute A69.20 Myalgia Acute M79.10 Joint pain Acute M25.50 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 Acute H90.71 Referred otalgia of both ears Acute H92.03 Imbalance Acute R26.89 Sensorineural hearing loss, unilateral, right ear, with unrestricted hearing on the contralateral side Acute H90.41 Perimenopause Acute N95.1 Dyspareunia Acute Chronic GERD Acute K21.9 INDER (obstructive sleep apnea) Chronic G47.33 Anxiety and depression Chronic F41.9, F32.9 Irritable bowel syndrome with diarrhea Acute K58.0 Medical History Medical History Hyperthyroidism Mast cell activation syndrome POTS (postural orthostatic tachycardia syndrome) Neck mass Chest wall pain Eye anomaly Thyroid nodule Hip pain COVID Lyme disease Diarrhea Nephrolithiasis Schatzki's ring 12/2019 dilation of, [facility] GI Hiatal hernia 12/20/19 2 cm GI [facility] Urinary retention Gait instability r/t lyme Paresthesias Migraine headache without aura Dysphagia, pharyngeal phase 11/15/19 Dr Short - barium swallow ordered Medication reaction Possibly 2' lamotrigine & topiramate ? Low back pain Major depressive disorder, recurrent severe without psychotic features Weight gain Personal history of cervical dysplasia (12/08/15) 2009 SEBASTIAN III - LEEP Rx Aortic valve regurgitation (03/19/13) ECHO 12/18/2001 Anbx Prophylaxis Surgical History Surgical History History of cholecystectomy Hx of cholecystectomy H/O esophagogastroduodenoscopy 12/20/19 Dr Phil Reynaga 2 cm hiatal hernia S/P laparoscopic assisted vaginal hysterectomy ([facility]) History of laparoscopic-assisted vaginal hysterectomy Status post laparoscopic hysterectomy History of elbow surgery R elbow Ligation of fallopian tube 2002 or 2003 Cervical Procedure (~2008) LEEP Tobacco Smoking/Tobacco Use Status: Never Passive smoking exposure: No Second hand exposure: Yes Alcohol Alcohol Intake: former Substance Use Substance use: Daily Substance use type: marijuana Details: CBD oil BID Prental History History 3 Para 2 Hx # Term Pregnancies Multiple births Hx # Pregnancies Ectopic pregnancies AB induced Hx Number of Living Children AB spontaneous Vital Signs and Lab Results Vital Signs Most Recent Vital Signs in EMR: Most Recent Vital Signs Temp Pulse Resp BP Pulse Ox 36.8 C 83 20 116/77 99 11/12/23 13:08 11/12/23 13:08 11/12/23 13:08 11/12/23 13:08 11/12/23 13:08 Lab Results Blood Type / Crossmatch: No Data to Display Complete Blood Count: No Data to Display Complete Metabolic Panel: No Data to Display Liver Function Panel: No Data to Display Coagulation Panel: No Data to Display Cardiac Panel: No Data to Display Arterial Blood Gas: No Data to Display Venous Blood Gas: No Data to Display Pancreas Panel: No Data to Display Thyroid Panel: Thyroid Stimulating Hormone (TSH) 4.80 uIU/Ml (0.36-3.74) H 10/17/23 07:50 Total Triiodothyronine 182 ng/dL (97-169) H 10/17/23 07:50 Infectious Disease: No Data to Display Blood Cultures: No Data to Display Toxicology Panel: No Data to Display Panel: No Data to Display Imaging and Studies Imaging and Studies Study information below may be from another EMR and interpreted by another provider. Please see original notes in EMR for more complete details. EKG Summary: EKG PATIENT NAME: Chiquis Winn UNIT #: [id number] ORDERING PROVIDER: Eda Flanagan M.D. PRIMARY CARE PROVIDER: ARAMIS PICKENS NP DATE/TIME OF SERVICE: 05/15/20 1137 : 1975 PERFORMING LOCATION: ER APPROVED REPORT Exam: Resting ECG Patient Location: E HR:52 bpm ECG Measurements Heart Rate 52 AXIS AK 140 P 34 QRSd 100 QRS 48 QT 459 T33 QTc 427 Conclusion Sinus bradycardia...rate< 60 Low voltage, precordial leads...precordial leads <1.0mV sinus bradycardia at 52, nl axis, QTc 427, no acute ischemic changes, non- diagnostic EKG <Electronically signed by EDA FLANAGAN MD in [place]> E-Sign Date: 05/15/20 E-Sign Time: 1209 ADDENDUM APPROVED REPORT Exam: Resting ECG Patient Location: E HR:52 bpm ECG Measurements Heart Rate 52 AXIS AK 140 P 34 QRSd 100 QRS 48 QT 459 T33 QTc 427 Conclusion Sinus bradycardia...rate< 60 Low voltage, precordial leads...precordial leads <1.0mV sinus bradycardia at 52, nl axis, QTc 427, no acute ischemic changes, non- diagnostic EKG I have reviewed and I agree with the emergency room physician???s ECG interp retation. Electronically signed by: <Electronically signed by Wes Claudio M.D. in [place]> 05/15/20 1217 Cosigned by: ADDENDUM APPROVED REPORT Exam: Resting ECG Patient Location: E HR:52 bpm ECG Measurements Heart Rate 52 AXIS AK 140 P 34 QRSd 100 QRS 48 QT 459 T33 QTc 427 Conclusion Sinus bradycardia...rate< 60 Low voltage, precordial leads...precordial leads <1.0mV sinus bradycardia at 52, nl axis, QTc 427, no acute ischemic changes, non- diagnostic EKG I have reviewed and I agree with the emergency room physician???s ECG interpretation. Electronically signed by: <Electronically signed by Wes Claudio M.D. in [place]> 05/15/201216 Cosigned by: Echocardiogram Summary: Patient Name: Chiquis Winn Unit #: [id number] Loc: DI Ordering Provider: Philip Cabral NP Status: REG [facility] Primary Care Provider: Philip Cabral NP Date of Exam: 06/24/22 Sex: F Admission Date: 06/24/22 : 1975 Age: 46 APPROVED REPORT EXAM: Comprehensive 2D, Doppler, and color-flow Echocardiogram Patient Location: Out-Patient Mandarin Speaking Nanny: Carolyn Bautista RDCS (AE) Indications: Aortic regurgitation found in 2006 Other Information Study Quality: Good Conclusion Normal left ventricular wall thickness and chamber size. Estimated ejection fraction is 65%. Wall motion is normal Normal right ventricular size and systolic function Both atria are normal in size No structural or hemodynamically significant valvular disease Major right ventricular systolic pressure is 23 mmHg Wall motion Left Ventricle The left ventricle is normal size. The left ventricular systolic function is normal. The left ventricular ejection fraction is within the normal range. There is normal left ventricular wall thickness. There is normal LV segmental wall motion. There is no ventricular septal defect visualized. LVEF is 65%. Right Ventricle The right ventricle is normal size. The right ventricular systolic function is normal. The RVSP is 22.9 mmHg. Atria The left atrium size is normal. The right atrium size is normal. The interatrial septum is intact with no evidence for an atrial septal defect. Aortic Valve The aortic valve is normal in structure. Aortic valve is trileaflet. There is no aortic valvular stenosis. No aortic regurgitation is present. Mitral Valve The mitral valve is normal in structure. No evidence of mitral valve stenosis. Trace mitral regurgitation. Tricuspid Valve The tricuspid valve is normal in structure. There is no tricuspid valve stenosis. Mild tricuspid regurgitation. Pulmonic Valve The pulmonary valve is normal in structure. There is no pulmonic valvular stenosis. There is no pulmonic valvular regurgitation. Great Vessels The aortic root is normal in size. The ascending aorta is normal in size. Aortic arch is normal in caliber. IVC is normal in size and collapses >50% with inspiration. Pericardium There is no pericardial effusion. 2D Dimensions IVSD d PLAX 0.64 cm F: 0.6-1.0LV Vol A2C d MOD 93.9 mL LVPW d PLAX 0.65 cm F: 0.6 - 1.0LV Vol A4C d MOD 103.0 mL LVID d PLAX 4.57 cm F: 3.8 - 5.2LA vol/ BSA A2C s A-L21.7 mL/m2 LVDs 3.05 cm F: 2.2 - 3.5LA vol/ BSA A4C s A-L24.0 mL/m2 Ao Root d 2.40 cm F: 2.7 - 3.3LA Vol/ BSA Biplane s A-L 24.8 mL/m2 RA Area A4C15.04 cm2LA Area A4C s MOD 18.18 cm2 RA Vol/ BSA A4C s A-L 20.7 mL/m2LA Area A2C s MOD 15.91 cm2 Ao Asc Diam d 2.83 cm F: 2.3 - 3.1LV EF A4C MOD 65.4 % LV EF Teichholz 62.0 %LV EF A2C MOD 65.9 % LVEF (Johnson's)66.67 % F: 54 - 74LV EF Biplane MOD 66.7 % LV Rwsaiv45.40 mL F: 46 - 114JW00.44 mL LV Volume Index39.59 mL/m2 F: 29 - 61SV Index35.10 mL/m2 LV Vol Biplane MOD 104.1 mL FS33.20 % M-Mode TAPSE 2.73 cm (M/F) >1.7 LV Diastology MV E' medial0.109 (>0.07 m/s)E/A Ratio 1.5 LV E/e MED9.45 (<14)MV E Vmax 1.03 (0.4-1.3 m/s) MV E' lateral0.141 (>0.1 m/s)MV A Vmax 0.70 (0.4-1.3 m/s) LV E/e LAT7.30 (<14)MV E/A Ratio 1.38 MV E/E' medial 9.49 MV E/E' lateral7.34 Aortic Valve LVOT Area2.92 cm2AoV Area Vmax2.45 cm2 LVOT Vmax 1.14 m/sAoV Area/ BSA (Vmax)1.24 cm2/m2 LVOT Mean Wiliam.0.69 m/sAVA Mean Wiliam.2.21 cm2 LVOT Peak Grad 5.2 mmHgAVA Mean Wiliam. Index1.12 cm2/m2 LVOT Mean Grad 2.4 mmHg LVOT VTI0.269 m LVOT Diam s 1.90 cm AoV Vmax1.36 m/s Velocity Ratio 0.84 AoV Mean Wiliam.0.92 m/s AoV Peak Grad7.4 mmHg LVOT SV 78.57 mL AoV Mean Grad3.9 mmHg AoV VTI0.273 m AoV Area VTI2.88 cm2 AoV Area/ BSA (VTI)1.46 cm/m2 Mitral Valve MV DT 189 (160-240 msec) MV PHT55 msec MV Area PHT 4.01 cm2 MV VTI 0.373 m MV Area VTI 2.10 (4.0-6.0 cm2) Pulmonary Valve PV Vmax 1.37 (0.5-1.5 m/s)RVOT Peak Gr.4.49 mmHg PV Peak Grad 7.5 mmHgRVOT Mean Gr.2.20 mmHg PV Mean Grad 3.8 mmHgRVOT VTI0.229 m PV VTI 0.304 mRVOT Vmax 1.06 m/s Tricuspid Valve TR Peak Grad 19.8 mmHgTR Vmax 2.23 m/s RA Pressure 3.00 mmHg RVSP (TR) 22.9 mmHg Ordered By: Philip Cabral NP CC: Dictated By: Thais Cannon M.D. 06/24/22 1317 <Electronically signed by Thais Cannon M.D. in [place]> 06/24/22 1322 Transcribed By: Thais Cannon MD This is privileged, confidential information intended only for the provider named. Any use or distribution by any person other than this provider is strictly prohibited. If you receive this report in error, please notify us immediately at [phone] and return the original report to us at the address above. Thank-you. Anesthesia Assessment and Plan Anesthesia History Personal History: No History of Anesthesia Complications Family History: No Family History of Anesthesia Complications Exercise Tolerance Exercise Tolerance: Metabolic Equivalents>4 Pertinent Negatives Pertinent Negatives: No Symptoms of GERD, No Major Cardiovascular Symptoms or Complaints, No Major Pulmonary Symptoms or Complaints and No History of CVA/TIA Cardiac & Pulmonary Exam Cardiac Exam: Normal S1/S2 Heart Sounds Pulmonary Exam: Clear Bilateral Breath Sounds Implantable Cardiac Device Does patient have a Pacemaker or an ICD?: No Airway Exam Known Difficult Airway: No Mallampati Class: 2 Mouth Opening: Normal (> 3cm) Thyromental Distance: Greater than 3 cm Neck Range of Motion: Full ROM (Reports stiff neck due to lymes disease) Neck Circumference: Normal Teeth Condition: Normal Dentition ASA Classification ASA Score: ASA 2 Emergency Case?: No NPO Status NPO Status: NPO Clears >2 hours, Solids >8 hours Status Status: Not Relevant due to Medical History Anesthesia Plan Resuscitation Status: Full Code Anesthesia Technique: General Anesthesia Airway Planned: Endotracheal Tube Monitors Used: Standard Monitors Preoperative Comments:: Significant number of herbal medications, reviewed and appropriate to proceed.
[2023-11-12 14:14] VITALS: BMI 32.1
[2023-11-12] MEDS: ceFAZolin 2 GM/50 ML BAG IVPB (14:45)
[2023-11-12] MEDS: Lidocaine 1% Multi-Dose W/EPI 1/100,000 50 ML VIAL (14:59)
[2023-11-12 15:16] VITALS: BP 109/73; PULSE 70; RESP 16; TEMP 36; O2SAT 98
--- NOTE | 2023-11-12 15:28 | W.ANESPOSTOP ---
Postoperative Evaluation Date, Time and Location Date Performed: 11/12/23 Time Performed: 15:28 Patient Location: Day Surgery Unit Vital Signs Most Recent Imported Vital Signs: Most Recent Vital Signs Temp Pulse Resp BP Pulse Ox 36 C L 70 16 109/73 98 11/12/23 15:16 11/12/23 15:16 11/12/23 15:16 11/12/23 15:16 11/12/23 15:16 Pain Score Most Recent Pain Score: Most Recent Pain Score Pain Level 0 11/12/23 15:16 Assessment Mental Status: Awake (Alert & Oriented to Patient Baseline) Airway and Respiratory Function: Patent airway with normal (patient baseline) respiratory exam Cardiovascular Function: Hemodynamically Stable Hydration Status: Adequately Hydrated Nausea & Vomiting: No Nausea or Vomiting Pain: Pt. Denies Any Pain Peripheral Nerve Block: Patient did not receive a nerve block
[2023-11-12 15:48] VITALS: BP 109/72; PULSE 54; RESP 16; TEMP 36; O2SAT 100
--- NOTE | 2023-11-12 16:27 | W.PM.OP ---
Date of service: 11/12/23 Time of Service: 14:30 Operative Note Operative Note DATE OF PROCEDURE: 11/12/23 PRE-OP DIAGNOSIS: Left Dorsal Wrist Cyst POST-OP DIAGNOSIS: same PROCEDURE: Excision of dorsal wrist ganglion cyst - Left wrist SURGEON: Patrice Ahn ANESTHESIA TYPE: General:No Airway Refer to Anesthesia Record ESTIMATED BLOOD LOSS: 0 PATHOLOGY: none sent COMPLICATIONS: None Patient was transported to: PACU Patient's condition: stable Indications: Chiquis is a 48 year old female who I have seen for a volar wrist ganglion cyst. It has continued to be bothersome despite some conservative options. Its size and interference with activities continues to cause problems. Therefore, I offered excision of the volar wrist cyst. I discussed the risks to include bleeding, infection, pain, stiffness, damage to nerve and vessels, recurrence. Despite these risks, she elects to proceed. Findings: There was a ganglion cyst arising from the dorsal wrist joint which was largely located under the extensor retinaculum. Procedure Description: Chiquis was greeted in the preoperative holding area. Identity was confirmed and the correct site was identified and marked. Consent was reviewed the patient and signed. History and physical was updated. The patient to take not to the operating room placed in supine position. All bony prominences were well-padded. A nonsterile tourniquet was placed high up onto the left arm but wasn't used. The arm was prepped with ChloraPrep and draped in a standard fashion. The surgical site was marked on the skin and injected with 1% lidocaine with epinephrine buffered with sodium bicarbonate. The skin was incised sharply. Deeper dissection was carried out with tenotomy scissors and careful attention to vascular branches in this area. The prominence of the mass was identified however, it was obvious that there is a deeper layer on top of this. This was incised. This was roughly adjacent to the extensor tendons of the hand. After incising this layer the cyst capsule was identified. It was dissected from the tissue around it and traveled back to the dorsal aspect of the wrist joint at approximately the level of the scapholunate interval. The cyst was then deflated and it was followed back to the wrist joint and excised. A portion of the wrist capsule was removed. A debridement was performed the rongeur of any synovitis and excess wrist capsule in the area. The wound was fully inspected and showed no signs of remnant cyst material. The wound was then irrigated thoroughly. The deep tissues were closed with a 2-0 Vicryl and the skin was closed with 4-0 Monocryl in a running, subcuticular fashion. This was reinforced with skin glue. This was dressed with a Mepilex silver dressing followed by a wrist brace. At the end the case all counts were correct. The patient was awakened from anesthesia and taken to the DSU in stable condition. There were no noted complications.
== END 2023-11-12 16:16 | disposition home or self-care (01) ==
LOC: SUR 12:25
PROVIDERS: PCP Nurse Practitioner Family; Visit Provider Student in an Organized Health Care Education/Training Program
PROC: (CPT 25111; principal; 2023-11-12 14:30)
DX: M67.432 Ganglion, left wrist (principal)
CPT/HCPCS: 25111; J0690; J1100; J1885; J2004; J2405; J2704

== ENCOUNTER 2023-12-25 02:30 | Outpatient (CLI) | payer SELFPAY ==
[2023-12-25 11:13] LABS: Hemoglobin A1C 5.1 % (<5.7)
[2023-12-25 11:30] LABS: FREE T4 0.86 ng/dL (0.76-1.46)
[2023-12-25 11:44] LABS: T4 7.4 ug/dL (4.7-13.3)
[2023-12-25 20:25] LABS: T3,Free 3.5 pg/mL (2.8-5.3)
[2023-12-25 20:39] LABS: T3, Total 189 ng/dL (97-169)
[2023-12-25 22:24] LABS: Thyroglobulin Antibody 189 U/mL (<=60); Thyroperoxidase Antibody <28 U/mL (<=60)
== END 2023-12-25 02:31 | disposition home or self-care (01) ==
PROVIDERS: PCP Nurse Practitioner Family; Visit Provider Naturopath
DX: E06.3 Autoimmune thyroiditis (principal); R00.2 Palpitations; N95.1 Menopausal and female climacteric states; R63.5 Abnormal weight gain; R68.82 Decreased libido; R53.83 Other fatigue
CPT/HCPCS: 36415; 86376; 83036; 84436; 84439; 84443; 84480; 84481

== ENCOUNTER 2024-06-16 02:47 | Outpatient (CLI) | payer BC, SELFPAY ==
[2024-06-16 07:20] LABS: Abs Immature Grans 0.01 10^3/uL (0.0-0.06); Absolute Basophil Count 0.04 10^3/uL (0.0-0.2); Absolute Eosinophil Count 0.12 10^3/uL (0.0-0.7); Absolute Lymphocyte Count 0.88 10^3/uL (1.2-3.4); Absolute Monocyte Count 0.29 10^3/uL (0.1-0.8); Absolute Neutrophil Count 4.18 10^3/uL (1.2-6.7); Basophils % 0.7 %; Eosinophils % 2.2 %; HGB 13.1 g/dL (11.2-15.7); Immature Grans % 0.2 %; Lymphocytes % 15.9 %; MCH 30.6 pg (27.0-33.0); MCHC 32.8 % (32.0-36.0); MCV 94 fL (80-95); MPV 10.5 fL (8.0-11.0); Monocytes % 5.3 %; Neutrophils % 75.7 %; Platelet Count 266 10^3/uL (130-400); RBC 4.28 10^6/uL (3.93-5.22); RDW 12.5 % (11.7-14.6); RDW-SD 43.1 fL; WBC 5.52 10^3/uL (4.4-10.8)
[2024-06-16 08:46] LABS: Iron 121 ug/dL (50-170)
[2024-06-16 09:13] LABS: ALT 33 U/L (14-59); AST 21 U/L (15-37); Albumin 3.6 g/dL (3.4-5.0); Alkaline Phosphatase 85 U/L (46-116); Anion Gap 11.2 mmol/L (3-11); BUN 18 mg/dL (7-18); Bilirubin, Total 0.7 mg/dL (0.2-1.0); CO2 27.8 mmol/L (21.0-32.0); CREATININE 1.1 mg/dL (0.55-1.02); Calcium 9.3 mg/dL (8.5-10.1); Calculated LDL 112 mg/dL (<100); Chloride 106 mmol/L (98-107); Cholesterol 182 mg/dL (<200); Ferritin 169 ng/mL (8-252); Glucose 86 mg/dL (74-106); HDL Cholesterol 63 mg/dL (>or=50); Potassium 4.1 mmol/L (3.5-5.1); Sodium 145 mmol/L (136-145); TSH 4.81 uIU/mL (0.36-3.74); Triglyceride 39 mg/dL (<150); Vitamin B12 477 pg/mL (193-986); Vitamin D 25 Total 84 ng/mL (30-100)
[2024-06-16 10:23] LABS: FREE T4 0.86 ng/dL (0.76-1.46)
[2024-06-16 18:26] LABS: T3,Free 2.8 pg/mL (2.8-5.3)
[2024-06-16 19:34] LABS: Thyroglobulin Antibody 149 U/mL (<=60); Thyroperoxidase Antibody <28 U/mL (<=60)
[2024-06-24 20:41] LABS: Thyroid Stimulating Immunoglob <1.0 TSI index (<=1.3)
== END 2024-06-16 02:48 | disposition home or self-care (01) ==
PROVIDERS: PCP Nurse Practitioner Family; Visit Provider Naturopath
DX: A09 Infectious gastroenteritis and colitis, unspecified (principal); B37.82 Candidal enteritis; E06.3 Autoimmune thyroiditis; E66.9 Obesity, unspecified; I95.1 Orthostatic hypotension; K21.9 Gastro-esophageal reflux disease without esophagitis; K29.70 Gastritis, unspecified, without bleeding; N95.1 Menopausal and female climacteric states; R29.818 Other symptoms and signs involving the nervous system; T50.905A Adverse effect of unspecified drugs, medicaments and biological substances, initial encounter; B37.31 Acute candidiasis of vulva and vagina; G47.00 Insomnia, unspecified; J06.9 Acute upper respiratory infection, unspecified; L98.9 Disorder of the skin and subcutaneous tissue, unspecified; R45.86 Emotional lability; R63.0 Anorexia; R63.5 Abnormal weight gain; R68.82 Decreased libido; J18.9 Pneumonia, unspecified organism; R10.9 Unspecified abdominal pain; R53.83 Other fatigue; B60.09 Other babesiosis; G31.84 Mild cognitive impairment of uncertain or unknown etiology; K20.0 Eosinophilic esophagitis; R00.2 Palpitations; H91.91 Unspecified hearing loss, right ear; J32.9 Chronic sinusitis, unspecified; R06.83 Snoring; Z73.6 Limitation of activities due to disability; F41.1 Generalized anxiety disorder; L70.9 Acne, unspecified; U09.9 Post COVID-19 condition, unspecified; G93.32 Myalgic encephalomyelitis/chronic fatigue syndrome; Q79.62 Hypermobile Ehlers-Danlos syndrome
CPT/HCPCS: 36415; 80053; 80061; 82306; 82607; 82728; 83540; 84439; 84443; 84445; 84481; 85025; 86376; 86800

== ENCOUNTER 2024-08-18 02:37 | Outpatient (CLI) | payer BC, SELFPAY ==
[2024-08-18 07:52] LABS: Absolute Basophil Count 0.04 10^3/uL (0.0-0.2); Absolute Eosinophil Count 0.13 10^3/uL (0.0-0.7); Absolute Lymphocyte Count 0.98 10^3/uL (1.2-3.4); Absolute Monocyte Count 0.27 10^3/uL (0.1-0.8); Absolute Neutrophil Count 2.75 10^3/uL (1.2-6.7); Eosinophils % 3.1 %; HCT 39.6 % (36.0-46.0); HGB 13.4 g/dL (11.2-15.7); Lymphocytes % 23.5 %; MCH 30.9 pg (27.0-33.0); MCHC 33.8 % (32.0-36.0); MCV 91 fL (80-95); MPV 10.5 fL (8.0-11.0); Monocytes % 6.5 %; Neutrophils % 65.9 %; Platelet Count 248 10^3/uL (130-400); RBC 4.34 10^6/uL (3.93-5.22); RDW 12.3 % (11.7-14.6); RDW-SD 41.3 fL; WBC 4.17 10^3/uL (4.4-10.8)
[2024-08-18 08:54] LABS: ALT 37 U/L (14-59); AST 18 U/L (15-37); Albumin 3.8 g/dL (3.4-5.0); Alkaline Phosphatase 87 U/L (46-116); Anion Gap 4.2 mmol/L (3-11); BUN 23 mg/dL (7-18); Bilirubin, Total 0.7 mg/dL (0.2-1.0); CO2 28.8 mmol/L (21.0-32.0); Calculated LDL 107 mg/dL (<100); Chloride 105 mmol/L (98-107); Cholesterol 182 mg/dL (<200); Estimated GFR 69.06 (mL/min/1.73m2); Ferritin 172 ng/mL (8-252); Glucose 84 mg/dL (74-106); HDL Cholesterol 69 mg/dL (>or=50); Potassium 3.8 mmol/L (3.5-5.1); Sodium 138 mmol/L (136-145); TSH 2.63 uIU/mL (0.36-3.74); Total Protein 7.1 g/dL (6.4-8.2); Triglyceride 34 mg/dL (<150); Vitamin B12 585 pg/mL (193-986); Vitamin D 25 Total 76 ng/mL (30-100)
[2024-08-18 09:13] LABS: FREE T4 0.85 ng/dL (0.76-1.46)
[2024-08-18 09:14] LABS: Iron 79 ug/dL (50-170)
[2024-08-18 18:24] LABS: T3,Free 3.7 pg/mL (2.8-5.3)
[2024-08-18 19:29] LABS: Thyroperoxidase Antibody <28 U/mL (<=60)
[2024-08-21 14:06] LABS: Thyroglobulin Antibody <1.8 IU/mL (<1.8); Thyroglobulin Tumor Marker 34 ng/mL (< or = 33)
[2024-08-26 16:50] LABS: Thyroid Stimulating Immunoglob <1.0 TSI index (<=1.3)
== END 2024-08-18 02:38 | disposition home or self-care (01) ==
PROVIDERS: PCP Nurse Practitioner Family; Visit Provider Naturopath
DX: A09 Infectious gastroenteritis and colitis, unspecified (principal); B37.82 Candidal enteritis; E06.3 Autoimmune thyroiditis; E66.9 Obesity, unspecified; I95.1 Orthostatic hypotension; K21.9 Gastro-esophageal reflux disease without esophagitis; K29.70 Gastritis, unspecified, without bleeding; N95.1 Menopausal and female climacteric states; R29.818 Other symptoms and signs involving the nervous system; T50.905A Adverse effect of unspecified drugs, medicaments and biological substances, initial encounter; B37.31 Acute candidiasis of vulva and vagina; G47.00 Insomnia, unspecified; J06.9 Acute upper respiratory infection, unspecified; L98.9 Disorder of the skin and subcutaneous tissue, unspecified; R45.86 Emotional lability; R63.0 Anorexia; R63.5 Abnormal weight gain; R68.82 Decreased libido; J18.9 Pneumonia, unspecified organism; R10.9 Unspecified abdominal pain; R53.83 Other fatigue; B60.09 Other babesiosis; G31.84 Mild cognitive impairment of uncertain or unknown etiology; K20.0 Eosinophilic esophagitis; R00.2 Palpitations; H91.91 Unspecified hearing loss, right ear; J32.9 Chronic sinusitis, unspecified; R06.83 Snoring; Z73.6 Limitation of activities due to disability; F41.1 Generalized anxiety disorder; L70.9 Acne, unspecified; U09.9 Post COVID-19 condition, unspecified; G93.32 Myalgic encephalomyelitis/chronic fatigue syndrome; Q79.62 Hypermobile Ehlers-Danlos syndrome
CPT/HCPCS: 36415; 80053; 80061; 82306; 82607; 82728; 83540; 84432; 84439; 84443; 84445; 84481; 85025; 86376; 86800

== ENCOUNTER 2024-08-30 10:31 | Emergency (ER) | payer BC, SELFPAY ==
[2024-08-30] VITALS (35 sets, daily range): BP systolic 116–130; BP diastolic 67–80; PULSE 47–68; RESP 11–26; TEMP 36.5; O2SAT 95–100
--- NOTE | 2024-08-30 10:30 | RT.EKG_ITS ---
APPROVED REPORT Exam: Resting ECG Reason for Exam: SOB, Dizzyness Patient Location: E HR:68 bpm ECG Measurements Heart Rate 68 AXIS AK 128 P 70 QRSd 103 QRS 84 QT 407 T 61 QTc 434 Conclusion Sinus rhythm...normal P axis, V-rate 60- 99 Probable left atrial enlargement...P >50mS, <-0.10mV V1 No Occlusion WI
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
--- NOTE | 2024-08-30 11:30 | DI.RAD_ITS ---
Exam(s) XR CHEST 2V PA LATERAL EXAM: XR CHEST 2V PA LATERAL CLINICAL HISTORY: dizziness TECHNIQUE: 2D digital imaging was performed. Two views. COMPARISON: CR,XR XR CHEST 2V PA LATERAL from 11/17/2021 FINDINGS: HEART: Normal size. Aorta: Not dilated. PULMONARY VASCULATURE: Normal. MEDIASTINUM: Unremarkable. LUNGS: Clear. PLEURAL SPACE: No pleural effusion or pneumothorax. BONE:Unremarkable for age. SOFT TISSUES: Unremarkable. IMPRESSION: No acute abnormality. DATA REPOSITORY: RADIATION DOSE DELIVERED:
[2024-08-30 12:00] LABS: Bilirubin Negative (Negative); Blood Negative (Negative); Clarity Clear (Clear); Glucose Negative (Negative); Ketones Negative (Negative); Leukocyte Esterase Negative (Negative); Nitrite Negative (Negative); Urobilinogen 0.2 mg/dL (Up to 0.2); pH 5.5 (5-8)
[2024-08-30 12:18] LABS: Abs Immature Grans 0.02 10^3/uL (0.0-0.06); Absolute Basophil Count 0.03 10^3/uL (0.0-0.2); Absolute Eosinophil Count 0.03 10^3/uL (0.0-0.7); Absolute Lymphocyte Count 1.06 10^3/uL (1.2-3.4); Absolute Monocyte Count 0.27 10^3/uL (0.1-0.8); Absolute Neutrophil Count 5.65 10^3/uL (1.2-6.7); Basophils % 0.4 %; Eosinophils % 0.4 %; HCT 38.1 % (36.0-46.0); HGB 12.5 g/dL (11.2-15.7); Immature Grans % 0.3 %; MCH 29.9 pg (27.0-33.0); MCHC 32.8 % (32.0-36.0); MCV 91 fL (80-95); MPV 10.1 fL (8.0-11.0); Monocytes % 3.8 %; Neutrophils % 80.1 %; Platelet Count 253 10^3/uL (130-400); RBC 4.18 10^6/uL (3.93-5.22); RDW 12.1 % (11.7-14.6); RDW-SD 40.4 fL; WBC 7.06 10^3/uL (4.4-10.8)
[2024-08-30 12:20] LABS: Lactate 0.8 mmol/L (<or=2.0)
[2024-08-30 12:42] LABS: ALT 37 U/L (14-59); AST 18 U/L (15-37); Albumin 3.7 g/dL (3.4-5.0); Alkaline Phosphatase 90 U/L (46-116); BUN 18 mg/dL (7-18); Bilirubin, Total 0.5 mg/dL (0.2-1.0); CREATININE 0.8 mg/dL (0.55-1.02); Calcium 9.1 mg/dL (8.5-10.1); Chloride 106 mmol/L (98-107); Estimated GFR 90.27 (mL/min/1.73m2); Glucose 103 mg/dL (74-106); Lipase 35 U/L (<78); Potassium 3.8 mmol/L (3.5-5.1); Sodium 141 mmol/L (136-145); TSH (W/Ref FT4) 2.19 uIU/mL (0.36-3.74); Total Protein 6.9 g/dL (6.4-8.2)
[2024-08-30] MEDS: Normal Saline - Diluent 50 ML VIAL IJ (14:21)
[2024-08-30] MEDS: Omnipaque 350 MG/ML 500 ML BTL-Imaging package IJ (14:22)
--- NOTE | 2024-08-30 14:30 | DI.CT_ITS ---
Exam(s) CT ABDOMEN PELVIS W EXAM: CT ABDOMEN PELVIS W CLINICAL HISTORY: RLQ tenderness. TECHNIQUE: Imaging Protocol: Axial computed tomography images with coronal and sagittal reformatted images were created and reviewed CONTRAST MATERIAL: Intravenous: Omnipaque 350 Contrast volume:70 ml Oral: no COMPARISON: CT CT ABDOMEN PELVIS W from 03/19/2023 FINDINGS: ABDOMEN and PELVIS: Lung Bases: No acute findings. Liver: Normal density. No suspicious mass. Gallbladder and biliary tract: Cholecystectomy.. No biliary dilation. Pancreas: Normal density. No abnormal calcifications or inflammatory process. No evidence of mass. Spleen: Normal. Kidneys: Normal size, contour and axis. No radiodense stones. No obstructive uropathy. No suspicious masses seen. Adrenal glands: No masses seen. Vasculature: Abdominal aorta non-dilated. Soft tissues: Unremarkable. Bladder: Nearly empty. No gross wall thickening. No calculi.No focal mass. Bowel: No obstruction. No bowel wall thickening. Appendix normal. Normal quantity of stool. Peritoneal cavity: No ascites. No focal collection. No mesenteric inflammatory response. No free air. Bones: Unremarkable for age. Reproductive organs: Hysterectomy. Lymph nodes: No pathologically enlarged lymph nodes. IMPRESSION:: No acute abnormality in the abdomen or pelvis. RADIATION DOSE DELIVERED: Total DLP DATA REPOSITORY: All CT scans at this facility are submitted to the National Radiology Data Registry (NRDR) Dose Index Registry (DIR) with the [employer] (ACR). RADIATION OPTIMIZATION: All CT scans at this facility use at least one of these dose optimization techniques: automated exposure control; mA and/or kV adjustment per patient size (includes targeted exams where dose is matched to clinical indication); or iterative reconstruction.
[2024-08-30] MEDS: Normal Saline 1,000 ML 1000 ML IV (15:14)
[2024-08-30 22:33] LABS: T3,Free 3.3 pg/mL (2.8-5.3)
[2024-08-30 22:48] LABS: T3, Total 124 ng/dL (97-169)
== END 2024-08-30 16:51 | disposition home or self-care (01) ==
PROVIDERS: Emergency Provider Physician Assistant; PCP Nurse Practitioner Family
DX: R42 Dizziness and giddiness (principal); R53.81 Other malaise; E03.9 Hypothyroidism, unspecified
CPT/HCPCS: 36415; 80053; 83690; 93005; 96360; 99285; 71046; 74177; 81003; 83605; 83735; 84443; 84480; 84481; 85025; 93010

== ENCOUNTER 2024-09-09 00:40 | Outpatient (CLI) | payer BC, SELFPAY ==
--- NOTE | 2024-09-09 15:39 | DI.MAMMO_ITS ---
Exam(s) MAMMO SCREENING EXAM: MAMMO SCREENING CLINICAL HISTORY: screening,Z12.39 TECHNIQUE: Mammograms were interpreted according to the usual protocol including computer analysis with CAD system, tomosynthesis and C-view imaging. COMPARISON: No exams were available for comparison FINDINGS: The breasts are composed of scattered fibroglandular densities, Breast Density category B. No suspicious masses or suspicious microcalcifications are seen. There are stable nodules in the left breast. No skin thickening or abnormal axillary lymph nodes are seen. There has been no significant change from prior exams. IMPRESSION: BI-RADS Category 2 - Benign Findings Yearly screening mammography is recommended. Breast Density - Category B - There are scattered areas of fibroglandular density. Breast density Category C or D implies that the patient has dense breast tissue. Dense breast tissue can make it harder to find cancer on a mammogram. Dense breast tissue is also associated with an increased risk of breast cancer. This information about the result of the mammogram report was provided to the patient to raise their awareness. Use this report when you speak with the patient about their risks for breast cancer, which includes their family history. At that time, you may recommend additional screening tests (Ultrasound or MRI) as these tests may add significant information. A negative radiographic report should not delay biopsy if a dominant or clinically suspicious mass is present. Up to ten percent of cancers are not identified on mammography. A negative report may reinforce clinical impression. Adenosis and dense breasts may obscure an underlying neoplasm. False positive reports average 6 to 10%. Patient will receive a letter notifying them of these results.
== END 2024-09-09 01:00 ==
LOC: DI 00:40
PROVIDERS: PCP Nurse Practitioner Family; Visit Provider Nurse Practitioner Family
DX: Z12.31 Encounter for screening mammogram for malignant neoplasm of breast (principal); R92.323 Mammographic fibroglandular density, bilateral breasts; D24.2 Benign neoplasm of left breast
CPT/HCPCS: 77063; 77067

== ENCOUNTER 2024-11-10 02:24 | Outpatient (CLI) | payer BC, SELFPAY ==
[2024-11-10 07:54] LABS: Abs Immature Grans 0.01 10^3/uL (0.0-0.06); HCT 39.5 % (36.0-46.0); HGB 13.1 g/dL (11.2-15.7); Immature Grans % 0.2 %; MCH 30.0 pg (27.0-33.0); MCHC 33.2 % (32.0-36.0); MCV 90 fL (80-95); MPV 10.0 fL (8.0-11.0); Platelet Count 309 10^3/uL (130-400); RBC 4.37 10^6/uL (3.93-5.22); RDW 11.8 % (11.7-14.6); RDW-SD 39.0 fL; WBC 4.06 10^3/uL (4.4-10.8)
[2024-11-10 08:41] LABS: ALT 32 U/L (14-59); AST 19 U/L (15-37); Albumin 4.0 g/dL (3.4-5.0); Alkaline Phosphatase 91 U/L (46-116); Anion Gap 7.5 mmol/L (3-11); BUN 11 mg/dL (7-18); Bilirubin, Total 1.0 mg/dL (0.2-1.0); CO2 28.5 mmol/L (21.0-32.0); Calcium 9.6 mg/dL (8.5-10.1); Chloride 105 mmol/L (98-107); Estimated GFR 77.88 (mL/min/1.73m2); Glucose 78 mg/dL (74-106); Potassium 3.8 mmol/L (3.5-5.1); Sodium 141 mmol/L (136-145); TSH 1.80 uIU/mL (0.36-3.74); Total Protein 7.7 g/dL (6.4-8.2)
[2024-11-10 09:05] LABS: Iron 187 ug/dL (50-170)
[2024-11-10 09:14] LABS: Ferritin 265 ng/mL (8-252); Vitamin D 25 Total 78 ng/mL (30-100)
[2024-11-10 18:00] LABS: T3,Free 3.8 pg/mL (2.8-5.3)
[2024-11-12 12:30] LABS: Copper, Serum 101 mcg/dL (77-206); Zinc, S 83 mcg/dL (60-106)
== END 2024-11-10 02:25 | disposition home or self-care (01) ==
PROVIDERS: PCP Nurse Practitioner Family; Visit Provider Naturopath
DX: A09 Infectious gastroenteritis and colitis, unspecified (principal); B37.82 Candidal enteritis; E06.3 Autoimmune thyroiditis; E66.9 Obesity, unspecified; I95.1 Orthostatic hypotension; K21.9 Gastro-esophageal reflux disease without esophagitis; K29.70 Gastritis, unspecified, without bleeding; N95.1 Menopausal and female climacteric states; R29.818 Other symptoms and signs involving the nervous system; T50.905A Adverse effect of unspecified drugs, medicaments and biological substances, initial encounter; B37.31 Acute candidiasis of vulva and vagina; G47.00 Insomnia, unspecified; J06.9 Acute upper respiratory infection, unspecified; L98.9 Disorder of the skin and subcutaneous tissue, unspecified; R45.86 Emotional lability; R63.0 Anorexia; R63.5 Abnormal weight gain; R68.82 Decreased libido; J18.9 Pneumonia, unspecified organism; R10.9 Unspecified abdominal pain; R53.83 Other fatigue; B60.09 Other babesiosis; G31.84 Mild cognitive impairment of uncertain or unknown etiology; K20.0 Eosinophilic esophagitis; R00.2 Palpitations; H91.91 Unspecified hearing loss, right ear; J32.9 Chronic sinusitis, unspecified; R06.83 Snoring; Z73.9 Problem related to life management difficulty, unspecified; F41.1 Generalized anxiety disorder; U09.9 Post COVID-19 condition, unspecified; G93.32 Myalgic encephalomyelitis/chronic fatigue syndrome; Q79.62 Hypermobile Ehlers-Danlos syndrome
CPT/HCPCS: 36415; 80053; 82306; 82525; 84630; 82728; 83540; 84439; 84443; 84445; 84481; 85025; 86376; 86800

== ENCOUNTER 2025-01-27 02:11 | Outpatient (CLI) | payer BC, SELFPAY ==
[2025-01-27 08:01] LABS: TSH 1.36 uIU/mL (0.55-4.78)
[2025-01-27 18:25] LABS: T3,Free 3.4 pg/mL (2.8-5.3)
== END 2025-01-27 02:12 | disposition home or self-care (01) ==
LOC: LBO 02:11
PROVIDERS: PCP Nurse Practitioner Family; Visit Provider Naturopath
DX: A09 Infectious gastroenteritis and colitis, unspecified (principal); B37.82 Candidal enteritis; E06.3 Autoimmune thyroiditis; E66.9 Obesity, unspecified; I95.1 Orthostatic hypotension; K21.9 Gastro-esophageal reflux disease without esophagitis; K29.70 Gastritis, unspecified, without bleeding; N95.1 Menopausal and female climacteric states; R29.818 Other symptoms and signs involving the nervous system; T50.905A Adverse effect of unspecified drugs, medicaments and biological substances, initial encounter; B37.31 Acute candidiasis of vulva and vagina; G47.00 Insomnia, unspecified; J06.9 Acute upper respiratory infection, unspecified; L98.9 Disorder of the skin and subcutaneous tissue, unspecified; R45.86 Emotional lability; R63.0 Anorexia; R63.5 Abnormal weight gain; R68.82 Decreased libido; J18.9 Pneumonia, unspecified organism; R10.9 Unspecified abdominal pain; R53.83 Other fatigue; B60.09 Other babesiosis; G31.84 Mild cognitive impairment of uncertain or unknown etiology; K20.0 Eosinophilic esophagitis; R00.2 Palpitations; H91.91 Unspecified hearing loss, right ear; J32.9 Chronic sinusitis, unspecified; R06.83 Snoring; Z73.6 Limitation of activities due to disability; F41.1 Generalized anxiety disorder; L70.9 Acne, unspecified; U09.9 Post COVID-19 condition, unspecified; G93.32 Myalgic encephalomyelitis/chronic fatigue syndrome; Q79.62 Hypermobile Ehlers-Danlos syndrome
CPT/HCPCS: 36415; 84439; 84443; 84445; 84481; 86376; 86800

== ENCOUNTER 2025-02-24 01:35 | Outpatient (CLI) | payer BC, SELFPAY ==
[2025-02-24 07:34] LABS: Abs Immature Grans 0.00 10^3/uL (0.0-0.06); HCT 38.7 % (36.0-46.0); HGB 12.7 g/dL (11.2-15.7); Immature Grans % 0.0 %; MCH 29.5 pg (27.0-33.0); MCHC 32.8 % (32.0-36.0); MCV 90 fL (80-95); MPV 10.0 fL (8.0-11.0); Platelet Count 247 10^3/uL (130-400); RBC 4.31 10^6/uL (3.93-5.22); RDW 11.7 % (11.7-14.6); RDW-SD 37.9 fL; WBC 3.15 10^3/uL (4.4-10.8)
[2025-02-24 08:20] LABS: Hemoglobin A1C 4.9 % (<5.7)
[2025-02-24 09:16] LABS: ALT 29 U/L (10-49); AST 23 U/L (<34); Albumin 4.4 g/dL (3.2-5.0); Alkaline Phosphatase 79 U/L (46-116); Anion Gap 7 mmol/L (3-11); BUN 17 mg/dL (9-23); Bilirubin, Total 0.6 mg/dL (0.2-1.2); CO2 27.0 mmol/L (20.0-31.0); Calcium 9.6 mg/dL (8.3-10.6); Chloride 106 mmol/L (98-107); Glucose 85 mg/dL (74-106); Iron 79 ug/dL (50-170); Potassium 4.1 mmol/L (3.5-5.1); Sodium 140 mmol/L (136-145); Total Iron Binding Capacity 240 ug/dL (250-425); Total Protein 7.3 g/dL (5.7-8.2); Transferrin Sat 33 % (15-50)
[2025-02-24 09:21] LABS: Ferritin 159 ng/mL (7-271)
[2025-03-01 09:15] LABS: Estradiol, Mass Spectrometry 80 pg/mL
[2025-03-07 23:30] LABS: Testosterone, Free 2.2 pg/mL (0.1-6.4)
== END 2025-02-24 01:36 | disposition home or self-care (01) ==
PROVIDERS: PCP Nurse Practitioner Family; Visit Provider Naturopath
DX: B37.82 Candidal enteritis; E66.9 Obesity, unspecified; K21.9 Gastro-esophageal reflux disease without esophagitis; R06.3 Periodic breathing; I95.1 Orthostatic hypotension; J32.9 Chronic sinusitis, unspecified; B37.31 Acute candidiasis of vulva and vagina; R63.5 Abnormal weight gain
CPT/HCPCS: 36415; 80053; 84402; 84403; 82670; 82679; 82728; 83036; 83540; 83550; 84144; 84146; 85025